=== PATIENT | male | born 1955 | race Caucasian/White ===

== ENCOUNTER 2020-01-01 08:06 | Emergency (ER) | payer BC, SELFPAY ==
[2020-01-01] VITALS (28 sets, daily range): BP systolic 130–187; BP diastolic 66–100; PULSE 67–82; RESP 10–24; TEMP 36.3–36.5; O2SAT 83–100
[2020-01-01 08:22] LABS: Glucose Point of Care 104 (65-105)
--- NOTE | 2020-01-01 08:25 | PC.NURSE ---
Pt BS now 89.
--- NOTE | 2020-01-01 08:43 | ED.RECABL ---
HPI - Recheck/Abnormal Lab/Rx General Chief Complaint: Recheck/Abnormal Lab/Rx Stated Complaint: LOW BLOOD SUGAR Time Seen by Provider: 01/01/20 08:17 Source: patient Mode of arrival: EMS Limitations: no limitations History of Present Illness HPI narrative: This patient is a 64 year old Insulin dependent diabetic who presents via EMS with a low blood sugar. Patient states he takes 20 units long acting insulin in the morning and he takes short acting novolog on a sliding scale. He last took his long acting yesterday morning and he states his blood sugar was 160-180 yesterday afternoon. He ate normally yesteday but he states he took 25 units Novolog last night after dinner and he forgot to check his sugar 3 hours afterwards like he normally does. This morning he woke up feeling cold, shaking and clammy . He also states he was disoriented but he was able to give himself sugar tablets. By the time EMS arrived his BS was 90. He states he feels better but he still has some nausea. He was feeling well prior to this morning. MD complaint: other (low blood sugar) Related Data Home Medications Medication Instructions Recorded Confirmed insulin aspart U-100 100 unit/mL 10 unit SUB-Q TID 06/08/19 (3 mL) subcutaneous pen insulin degludec 100 unit/mL (3 20 unit SUB-Q DAILY 06/08/19 mL) subcutaneous pen saxagliptin 5 mg-metformin ER 1 tablet PO DAILY 06/08/19 1,000 mg tablet,extend release 24hr mp atorvastatin 80 mg tablet 80 mg PO DAILY tablet 06/29/19 ergocalciferol (vitamin D2) 1,250 unit PO 06/29/19 mcg (50,000 unit) capsule Allergies Allergy/AdvReac Type Severity Reaction Status Date / Time amoxicillin Allergy Unknown Hives Verified 01/01/20 08:07 Penicillins Allergy Unknown Hives Verified 01/01/20 08:07 Review of Systems Review of Systems: Narrative: CONSTITUTIONAL: Denies fever, chills, EYES: Denies visual changes, redness, or discharge. ENT: Denies rhinorrhea, congestion, sore throat, or otalgia. CARDIOVASCULAR: Denies chest pain, palpitations, or edema. RESPIRATORY: Denies cough or dyspnea. GASTROINTESTINAL: Denies abdominal pain, nausea, vomiting, or diarrhea. GENITOURINARY: Denies dysuria or hematuria. SKIN: Denies rash or itching. MUSCULOSKELETAL: Denies back pain, joint pain, or myalgia. NEUROLOGIC: Denies headache, numbness, PSYCHIATRIC: Denies anxiety or depression. [facility] Past Medical History Medical History (Updated 01/01/20 @ 12:10 by Donna Valdovinos MD) Abnormal EKG Abnormal finding of blood chemistry, unspecified ROMELIA-inhibitor cough Benign essential hypertension BMI 27.0-27.9,adult Chronic cough Diabetes mellitus type 2, insulin dependent Encounter for preventive health examination Encounter for special screening examination for neoplasm of prostate Hyperlipidemia On halfway drug therapy Family History Family History (Updated 05/28/16 @ 14:56 by DOCTOR UNKNOWN) Father Family history of coronary artery disease Grandparent Cerebrovascular accident Mother Family history of dementia Social History Social History Smoking status: Never smoker Alcohol intake: never Gender identity (if verbalized by the patient): Male Exam Narrative: Exam Narrative: GENERAL: Well-appearing, well-nourished, and in no acute distress. HEAD: Normocephalic, atraumatic EYES: PERRLA and EOMI, conjunctiva clear without discharge EARS: TM's clear bilaterally without erythema or dullness NOSE: Nares clear, no rhinorrhea or epistaxis THROAT:Mucous membranes moist, Oropharynx normal without erythema, exudate, peritonsillar swelling or fluctuance NECK: Supple, without lymphadenopathy or mass RESPIRATORY: No respiratory distress, Airway patent, Respirations non-labored, Clear to auscultation without rales, rhonchi or wheeze HEART: Regular rate and rhythm. No murmur heard. Normal peripheral pulses. ABDOMEN: Soft, nontender, nondistended, normal active bowel sounds. No masses. No rebound or
[2020-01-01] MEDS: ONDANSETRON INJ 4 MG/2 ML VIAL IV PUSH (09:09)
[2020-01-01 09:14] LABS: Basophils Percent Auto 0.4 % (0.2-1.2); Eosinophils Absolute Auto 0.1 K/mm3 (0-0.3); Eosinophils Percent Auto 0.6 % (0-4.4); Hematocrit 48.3 % (42.0-52.0); Hemoglobin 15.7 g/dL (14.0-18.0); Immature Granulocyte Absolute 0.04 K/mm3 (0.00-0.031); Immature Granulocyte Percent A 0.5 % (0-0.5); Lymphocytes Absolute Auto 0.51 K/mm3 (0.9-3.2); Lymphocytes Percent Auto 6.4 % (18.3-44.2); Mean Corpuscular HGB Conc 32.5 g/dl (32-36); Mean Corpuscular Hemoglobin 28.8 pg (26-34); Mean Corpuscular Volume 88.6 fl (80-100); Mean Platelet Volume 10.2 fl (7.4-10.4); Monocytes Absolute Auto 0.3 K/mm3 (0.1-0.6); Monocytes Percent Auto 3.5 % (2.6-8.5); Neutrophils Absolute Auto 7.1 K/mm3 (1.3-6.7); Neutrophils Percent Auto 88.6 % (45.5-73.1); Platelet Count Result 146 k/mm3 (150-375); Red Blood Count 5.45 M/mm3 (4.6-6.20)
[2020-01-01 09:26] LABS: Blood Urea Nitrogen 23 mg/dL (9-20); Carbon Dioxide 27 mmol/L (22-30); Chloride 102 mmol/L (98-107); Estimated CRCL calculation 71 ml/min; Estimated Glomerular Filt Rate > 60; Glucose 129 mg/dL (75-110); Potassium 4.2 mmol/L (3.4-5.0); Sodium 139 mmol/L (137-145)
[2020-01-01 11:01] LABS: Add Urine Microscopic? YES; Appearance Urine Clear (Clear); Bilirubin Urine Negative (Negative); Blood Urine Negative (Negative); Color Urine Yellow (Yellow); Glucose Urine UA 3+ mg/dL (Negative); Ketones Urine Negative (Negative); Leukocyte Esterase Ur Negative LEU/UL (Negative); Mucus Urine Rare /lpf; Nitrate Urine Negative (Negative); Protein Urine 2+ mg/dL (Negative); RBC Urine 0-2 /hpf (0-2); Specific Grav Ur 1.016 (1.001-1.035); Squamous Epithelial Cell Urine Rare /hpf (Few); Urobilinogen Urine Negative mg/dL (<2.0); WBC Urine 0-3 /hpf
[2020-01-01 11:40] LABS: Glucose Point of Care 209 (65-105)
== END 2020-01-01 12:48 | disposition home or self-care (01) ==
PROVIDERS: Emergency Provider General Practice; PCP Internal Medicine
DX: E11.649 Type 2 diabetes mellitus with hypoglycemia without coma (principal); I10 Essential (primary) hypertension; E78.5 Hyperlipidemia, unspecified; Z79.4 Long term (current) use of insulin
CPT/HCPCS: 36415; 80048; 81001; 82948; 85025; 96374; 99284; J2405

== ENCOUNTER 2020-01-05 15:38 | Outpatient (CLI) | payer BC, SELFPAY ==
[2020-01-05 16:25] LABS: Basophils Absolute Auto 0.1 K/mm3 (0.0-0.1); Eosinophils Absolute Auto 0.3 K/mm3 (0-0.3); Eosinophils Percent Auto 6.5 % (0-4.4); Hematocrit 40.8 % (42.0-52.0); Hemoglobin 13.2 g/dL (14.0-18.0); Immature Granulocyte Absolute 0.01 K/mm3 (0.00-0.031); Immature Granulocyte Percent A 0.2 % (0-0.5); Immature Platelet Fraction Pct 2.5 % (0.9-11.2); Lymphocytes Absolute Auto 0.96 K/mm3 (0.9-3.2); Lymphocytes Percent Auto 19.6 % (18.3-44.2); Mean Corpuscular HGB Conc 32.4 g/dl (32-36); Mean Corpuscular Hemoglobin 28.5 pg (26-34); Mean Corpuscular Volume 88.1 fl (80-100); Mean Platelet Volume 10.6 fl (7.4-10.4); Monocytes Absolute Auto 0.3 K/mm3 (0.1-0.6); Monocytes Percent Auto 6.9 % (2.6-8.5); Neutrophils Absolute Auto 3.2 K/mm3 (1.3-6.7); Neutrophils Percent Auto 65.8 % (45.5-73.1); Platelet Count Result 152 k/mm3 (150-375); Red Blood Count 4.63 M/mm3 (4.6-6.20); White Blood Count 4.9 K/mm3 (4.5-10.0)
[2020-01-05 16:39] LABS: Alanine Aminotransferase 18 U/L (4-50); Albumin Level 4.1 g/dL (3.5-5.1); Alkaline Phosphatase 64 U/L (38-126); Aspartate Amino Transferase 29 U/L (17-59); Bilirubin,Total 0.8 mg/dL (0.2-1.3); Blood Urea Nitrogen 25 mg/dL (9-20); Carbon Dioxide 24 mmol/L (22-30); Chloride 102 mmol/L (98-107); Cholesterol 70 mg/dL (0-200); Estimated Glomerular Filt Rate > 60; Glucose 217 mg/dL (75-110); HDL Direct 26 mg/dL; Potassium 5.1 mmol/L (3.4-5.0); Sodium 135 mmol/L (137-145); Triglycerides 160 mg/dL (<150)
[2020-01-05 17:09] LABS: Prostate Specific Antigen 0.9 ng/mL (< OR = 4.0)
[2020-01-05 17:29] LABS: LDL Cholesterol Direct < 30 mg/dL
== END 2020-01-05 15:39 | disposition home or self-care (01) ==
PROVIDERS: PCP Internal Medicine; Visit Provider Internal Medicine
DX: E78.2 Mixed hyperlipidemia (principal); I10 Essential (primary) hypertension; R79.9 Abnormal finding of blood chemistry, unspecified; Z12.5 Encounter for screening for malignant neoplasm of prostate
CPT/HCPCS: 36415; 80053; 80061; 82542; 83036; 84153; 84443; 85025; 85055; G0103

== ENCOUNTER 2020-02-10 10:03 | Outpatient (CLI) | payer BC, SELFPAY ==
[2020-02-10 13:20] LABS: Vitamin D 25 Hydroxy 73.5 ng/mL
== END 2020-02-10 10:04 | disposition home or self-care (01) ==
PROVIDERS: PCP Internal Medicine; Visit Provider Internal Medicine
DX: E55.9 Vitamin D deficiency, unspecified (principal)
CPT/HCPCS: 36415; 82306

== ENCOUNTER 2020-03-25 06:38 | Outpatient (CLI) | payer BC, SELFPAY ==
--- NOTE | 2020-03-25 | EST_ITS ---
Patient Info Name: Vern Molina Age: 64 years : 1955 Gender: Male Ht: 67 in Wt: 170 lbs BSA: 1.92 m2 Exam Date: 03/25/2020 7:44 AM Exam Location: [facility] Stress Patient Status: Outpatient Admit Date: 03/25/2020 Staff Ordering Physician: Jeramie Dempsey MD Attending Provider: IKER HOGAN DO Exercise Technologist: Tessie Maza RDCS Exercise Physician: Iker Hogan DO Exam Type: CA stress michelle w NM Study Info Indications I10 - Essential (primary) hypertension E78.5 - Hyperlipidemia, unspecified R93.1 - Abnormal findings on diagnostic imaging of heart and coronary circulation A regadenoson stress test was performed. Summary 1. 1. Negative lexiscan stress test for ischemic ST changes by ECG criteria. 2. 2. Stable hemodynamics throughout the test. 3. 3. Nuclear scan to follow and will be reported separately. Please correlate with it. 4. 4. Patient informed of the above results. Protocol: Lexiscan Stress ECG Details Stage: REST Duration (min): 6 min : 13 sec HR (bpm): 65 SBP (mmHg): 145 DBP (mmHg): 81 Stage: REST Duration (min): 10 min : 45 sec HR (bpm): 66 SBP (mmHg): 145 DBP (mmHg): 81 Stage: STAGE 1 Duration (min): 0 min : 59 sec HR (bpm): 72 SBP (mmHg): 130 DBP (mmHg): 76 Stage: RECOVERY Duration (min): 1 min : 0 sec HR (bpm): 77 SBP (mmHg): 130 DBP (mmHg): 76 Stage: RECOVERY Duration (min): 2 min : 0 sec HR (bpm): 79 SBP (mmHg): 120 DBP (mmHg): 72 Stage: RECOVERY Duration (min): 3 min : 0 sec HR (bpm): 77 SBP (mmHg): 116 DBP (mmHg): 70 Stage: RECOVERY Duration (min): 4 min : 0 sec HR (bpm): 74 SBP (mmHg): 116 DBP (mmHg): 70 Stage: RECOVERY Duration (min): 5 min : 0 sec HR (bpm): 74 SBP (mmHg): 126 DBP (mmHg): 70 Stage: RECOVERY Duration (min): 6 min : 0 sec HR (bpm): 74 SBP (mmHg): 126 DBP (mmHg): 70 Stage: RECOVERY Duration (min): 6 min : 46 sec HR (bpm): 74 SBP (mmHg): 126 DBP (mmHg): 70 Rest HR: 66 bpm Peak HR: 81 bpm Rest Sys BP: 145 mmHg Peak Sys BP: 130 mmHg Max Pred HR: 157 bpm % Max Pred HR: 52 % Target HR: 133 bpm Max RPP: 10,530 bpm*mmHg Termination Reason: Completed protocol Cardiac Symptoms: None Total Time: 1 min : 0 sec Rest Alcocer BP: 81 mmHg Peak Alcocer BP: 76 mmHg Total Dose: 0.4 mg Resting ECG Sinus rhythm. Stress ECG No ST changes. Arrhythmias None. Report Signatures
--- NOTE | ~2020-03-25 | NM_ITS ---
EXAMINATION: NM michelle stress w perfusion DATE: 03/25/2020 09:33 INDICATION: Abnormal EKG. Benign hypertension. TECHNIQUE: Rest images were obtained following intravenous administration of 11.4 mCi Tc99m tetrofosm in (Myoview). The patient was infused intravenously with Lexiscan (Regadenoson). Then, 32.2 mCi Tc99m tetrofosmin (Myoview) was administered intravenously, and stress images were obtained. Additional pr one post stress images were obtained. Data was reconstructed into short axis and horizontal and verti pat long axis SPECT images. Gated SPECT images were also obtained. COMPARISON: 03/07/2009 FINDINGS: Severe nonreversible perfusion consistent with infarct at the basilar inferior and mid and basilar inferolateral segments. There is reversible perfusion defect on both the supine and prone pos t stress images consistent with ischemia at the extending peripherally from the region of infarct in each of the previously noted segments as well as extending into the mid inferior segment. There is no rmal left ventricular chamber size. There is hypokinesis and decreased wall thickening along the basi lar inferior and inferolateral segments with borderline left ventricular ejection fraction which eugenia ures 50%. IMPRESSION: 1. Reversible perfusion consistent with ischemia in the mid inferior segment as well as along the mar gins of an infarct involving the inferior basilar, mid inferolateral and basilar inferolateral segmen ts. 2. Left ventricular ejection fraction measuring 50%. Reviewed, dictated and finalized at location B. IMPRESSION: 1. Reversible perfusion consistent with ischemia in the mid inferior segment as well as along the margins of an infarct involving the inferior basilar, mid in ferolateral and basilar inferolateral segments. 2. Left ventricular ejection fraction measuring 50%.
== END 2020-03-25 06:39 | disposition home or self-care (01) ==
LOC: ANHCARD 06:44
PROVIDERS: PCP Internal Medicine; Visit Provider Internal Medicine
DX: R94.39 Abnormal result of other cardiovascular function study (principal); R94.31 Abnormal electrocardiogram [ECG] [EKG]; I10 Essential (primary) hypertension
CPT/HCPCS: 78452; 93017; A9502; J2785

== ENCOUNTER 2020-03-29 08:10 | Outpatient (CLI) | payer BC, SELFPAY ==
[2020-03-29 08:27] LABS: Basophils Absolute Auto 0.1 K/mm3 (0.0-0.1); Basophils Percent Auto 0.8 % (0.2-1.2); Eosinophils Absolute Auto 0.5 K/mm3 (0-0.3); Eosinophils Percent Auto 8.7 % (0-4.4); Hemoglobin 14.2 g/dL (14.0-18.0); Immature Granulocyte Absolute 0.02 K/mm3 (0.00-0.031); Immature Granulocyte Percent A 0.3 % (0-0.5); Lymphocytes Absolute Auto 1.14 K/mm3 (0.9-3.2); Lymphocytes Percent Auto 18.3 % (18.3-44.2); Mean Corpuscular HGB Conc 32.3 g/dl (32-36); Mean Corpuscular Hemoglobin 28.6 pg (26-34); Mean Corpuscular Volume 88.5 fl (80-100); Mean Platelet Volume 9.9 fl (7.4-10.4); Monocytes Absolute Auto 0.5 K/mm3 (0.1-0.6); Monocytes Percent Auto 7.7 % (2.6-8.5); Neutrophils Percent Auto 64.2 % (45.5-73.1); Platelet Count Result 152 k/mm3 (150-375); Red Blood Count 4.97 M/mm3 (4.6-6.20); Red Cell Distribution Width 13.2 % (11.5-14.5); White Blood Count 6.2 K/mm3 (4.5-10.0)
[2020-03-29 08:39] LABS: Alanine Aminotransferase 27 U/L (4-50); Albumin Level 4.1 g/dL (3.5-5.1); Alkaline Phosphatase 81 U/L (38-126); Anion Gap 8 mmol/L (8-16); Aspartate Amino Transferase 36 U/L (17-59); Bilirubin,Total 0.6 mg/dL (0.2-1.3); Blood Urea Nitrogen 29 mg/dL (9-20); Carbon Dioxide 26 mmol/L (22-30); Chloride 103 mmol/L (98-107); Cholesterol 110 mg/dL (0-200); Estimated Glomerular Filt Rate > 60; Glucose 189 mg/dL (75-110); HDL Direct 29 mg/dL; Potassium 4.3 mmol/L (3.4-5.0); Sodium 137 mmol/L (137-145); Triglycerides 261 mg/dL (<150)
[2020-03-29 08:44] LABS: Hemoglobin A1C 8.9 % (<5.7)
[2020-03-29 08:54] LABS: LDL Cholesterol Direct 44 mg/dL
[2020-03-31 12:30] LABS: Homocysteine 15.3 umol/L (<11.4)
== END 2020-03-29 08:11 | disposition home or self-care (01) ==
PROVIDERS: PCP Internal Medicine; Visit Provider Internal Medicine
DX: E78.5 Hyperlipidemia, unspecified (principal); E11.9 Type 2 diabetes mellitus without complications; Z79.4 Long term (current) use of insulin; Z79.899 Other long term (current) drug therapy
CPT/HCPCS: 36415; 80053; 80061; 82306; 83036; 83090; 84443; 85025

== ENCOUNTER 2020-04-04 00:03 | Outpatient (CLI) | payer BC, SELFPAY ==
[2020-04-04 16:39] LABS: SARS-CoV-2 RNA PCR Negative
== END 2020-04-04 00:04 | disposition home or self-care (01) ==
LOC: ANHCOVIDDT 00:03
PROVIDERS: PCP Internal Medicine; Visit Provider Specialist
DX: Z01.812 Encounter for preprocedural laboratory examination (principal); Z20.828 Contact with and (suspected) exposure to other viral communicable diseases
CPT/HCPCS: 87635; C9803; U0003

== ENCOUNTER 2020-04-06 02:07 | Day surgery (SDC) | payer BC, SELFPAY ==
[2020-04-06] VITALS (16 sets, daily range): BP systolic 114–150; BP diastolic 61–85; PULSE 58–74; RESP 12–19; TEMP 36.2–36.8; O2SAT 95–100; BMI 26.4
--- NOTE | 2020-04-06 07:47 | SUR.PREOP ---
ARRIVES AMBULATORY TO [facility] W/ SISTER AT SIDE FOR SCHEDULED C W/ DR. MENDIETA. DENIES CP OR SOB ON ARRIVAL. ORIENTED TO ROOM, PLAN OF CARE, PROCEDURE. QUESTIONS ANSWERED. IV STARTED, LABS SENT, VS OBTAINED, CONSENT SIGNED, SKIN PREP COMPLETED. WILL CONTINUE TO MONITOR.
[2020-04-06 08:06] LABS: Basophils Absolute Auto 0.1 K/mm3 (0.0-0.1); Basophils Percent Auto 0.9 % (0.2-1.2); Eosinophils Absolute Auto 0.4 K/mm3 (0-0.3); Eosinophils Percent Auto 6.9 % (0-4.4); Hematocrit 45.1 % (42.0-52.0); Hemoglobin 14.9 g/dL (14.0-18.0); Immature Granulocyte Absolute 0.01 K/mm3 (0.00-0.031); Immature Granulocyte Percent A 0.2 % (0-0.5); Lymphocytes Absolute Auto 1.13 K/mm3 (0.9-3.2); Mean Corpuscular Hemoglobin 29.1 pg (26-34); Mean Corpuscular Volume 88.1 fl (80-100); Mean Platelet Volume 10.4 fl (7.4-10.4); Monocytes Absolute Auto 0.4 K/mm3 (0.1-0.6); Monocytes Percent Auto 7.4 % (2.6-8.5); Neutrophils Absolute Auto 3.4 K/mm3 (1.3-6.7); Neutrophils Percent Auto 63.6 % (45.5-73.1); Platelet Count Result 169 k/mm3 (150-375); Red Blood Count 5.12 M/mm3 (4.6-6.20); Red Cell Distribution Width 13.2 % (11.5-14.5); White Blood Count 5.4 K/mm3 (4.5-10.0)
[2020-04-06 08:19] LABS: Anion Gap 7 mmol/L (8-16); Blood Urea Nitrogen 21 mg/dL (9-20); Calcium 9.1 mg/dL (8.4-10.2); Carbon Dioxide 26 mmol/L (22-30); Chloride 104 mmol/L (98-107); Estimated Glomerular Filt Rate > 60; Glucose 118 mg/dL (75-110); Sodium 137 mmol/L (137-145)
[2020-04-06 08:23] LABS: INR 0.9
--- NOTE | 2020-04-06 08:53 | WPDMODSED ---
Moderate Sedation Note-Pt Data Patient Data Diagnosis: Abnormal coronary calcium score with abnormal stress test Present Complaint: 64-year-old patient who underwent coronary is creating with calcium scoring and had a abnormal nuclear stress test indicating infero apical ischemia following this. In this setting angiography has been recommended. It should be noted the patient had a negative coronary angiogram many years ago Allergies Allergy/AdvReac Type Severity Reaction Status Date / Time amoxicillin Allergy Unknown Hives Verified 04/06/20 08:49 Penicillins Allergy Unknown Hives Verified 04/06/20 08:49 Home Medications Medication Instructions Recorded Confirmed Type losartan 50 mg tablet 50 mg PO DAILY #30 tablet 06/08/19 03/29/20 Rx ergocalciferol (vitamin D2) 1,250 unit PO 06/29/19 03/29/20 History mcg (50,000 unit) capsule ezetimibe 10 mg tablet 10 mg PO DAILY #90 tablet 06/29/19 03/29/20 Rx folic acid 400 mcg tablet 800 mcg PO DAILY #60 tablet 06/29/19 03/29/20 Rx mecobalamin (vitamin B12) 1,000 1,000 mcg SUBLINGUAL DAILY #90 06/29/19 03/29/20 Rx mcg disintegrating tablet tablet,sublingual omega-3 fatty acids 1,000 mg 2,000 mg PO BID cap 01/07/20 03/29/20 History capsule atorvastatin 80 mg tablet 80 mg PO DAILY #90 tablet 01/25/20 03/29/20 Rx pen needle, diabetic 31 gauge x #450 each 02/01/20 03/29/20 Rx 10/04 blood sugar diagnostic See Rx Instructions .ROUTE 03/17/20 03/29/20 Rx .COMPLEX #100 each insulin aspart U-100 100 unit/mL 12 unit SUB-Q TID #15 ml 03/24/20 03/29/20 Rx subcutaneous cartridge aspirin 81 mg tablet,delayed 81 mg PO DAILY #90 tablet 03/25/20 03/29/20 Rx release empagliflozin 10 mg-metformin ER 1 tablet PO DAILY #90 each 03/29/20 03/29/20 Rx 1,000 mg tablet,extended release 24hr insulin degludec 100 unit/mL (3 20 unit SUB-Q DAILY #15 ml 03/29/20 03/29/20 Rx mL) subcutaneous pen Current Medications: Active Medications Sodium Chloride (Normal Saline Iv) 500 mls @ 100 mls/hr IV CONT .Q5H [facility] Sedation/Anesthesia: No previous sedation/anesthesia problems (including family history). 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 Social History Social History Smoking status: Never smoker Alcohol intake: never Gender identity (if verbalized by the patient): Male Mod Sed Physical Exam Physical Exam Pre Procedural Exam: Normal: Appearance, Throat, Airway, Lungs, Heart Size, Heart Rate, Heart Rhythm, Neuro Exam and Extremities Hours since solid foods: 12 Hours since liquid intake: 12 Internal Medicine - PN: Obj Da Meds/Results Medications: Active Medications Generic Name Dose Route Start Last Admin Trade Name Freq PRN Reason Stop Dose Admin Sodium Chloride 500 mls @ 100 mls/hr 04/06/20 05:55 Normal Saline Iv IV CONT .Q5H [facility] Labs CBC & Chem 7: 04/06/20 07:58 04/06/20 07:58 Labs: Laboratory Results - last 24 hr 04/06/20 04/06/20 04/06/20 07:58 07:58 07:58 WBC 5.4 RBC 5.12 Hgb 14.9 Hct 45.1 MCV 88.1 MCH 29.1 MCHC 33.0 RDW 13.2 Plt Count 169 MPV 10.4 Immature Gran % (Auto) 0.2 Neut % (Auto) 63.6 Lymph % (Auto) 21.0 [place] % (Auto) 7.4 Eos % (Auto) 6.9 H Baso % (Auto) 0.9 Lymph # (Auto) 1.13 [place] # (Auto) 0.4 Eos # (Auto) 0.4 H Baso # (Auto
--- NOTE | 2020-04-06 09:20 | WPDCARDPROC ---
Cardiac Cath Procedure Note Date of procedure:: 04/06/20 Performing physician:: Matthew Damico MD Indication:: abnormal stress test elevated coronary calcium score Brief clinical history:: this is a 64-year-old white male without symptoms of anginal chest pain. He does have diabetes. He underwent coronary screening recently with an abnormal coronary calcium score followed by a nuclear stress test suggesting a previous inferior infarction has occurred. He is not experiencing chest pain Procedure Procedure performed:: left heart catheterization with left ventriculography and coronary angiography Sedation/Medication given:: fentanyl 50 mg Versed 2 mg case start time 8:59 a.m. case end time 9:14 a.m. sedation provided by Ky Beltran RN, Access site:: right femoral artery Estimated blood loss:: 15-20 cc Procedure note:: patient was brought to the cardiac catheterization lab in the postabsorptive state right femoral triangle was prepped and draped in the usual fashion. Anesthesia was provided with 1% lidocaine infiltrated locally. Using the modified Seldinger technique the right femoral artery was punctured and a 5 Mauritian vascular sheath was placed. After this left heart catheterization was carried out. I used a 5 Mauritian angle pigtail catheter to measure left-sided hemodynamics and to injected LV g in the GRISSOM projection. After this the pigtail catheter was withdrawn and I used a standard 5 Mauritian FL4 catheter to engage inject the left coronary artery. A standard 5 Mauritian JR4 catheter was used to engage inject the right coronary artery. The angiograms were then reviewed and the case was terminated and angiogram was done of the femoral artery through the sheath after which it was determined the sheath will be removed with direct manual compression. He left the catheterization lab in stable condition there were no procedural complications and no evidence of a groin hematoma was seen upon leaving the laboratory phlebotomist. Findings:: Hemodynamics: Central aortic pressure is 100/40. left ventricle is 100 over 0 end-diastolic pressure 9 there is no systolic gradient on pullback across the aortic valve. The left ventricle is normal in size the inferobasal segment is akinetic the remainder of the LV contracts well the global ejection fraction is visually estimated to be 50%. The left main coronary artery is medium in caliber and is nicely patent left anterior descending is a medium caliber artery with proximal calcification. The LAD however is patent down to around the apex there is a mild stenosis in the mid LAD of about 50%. There is RONALDO 3 flow in this vessel. The circumflex is a medium caliber artery giving rise to a 1st OM branch after which the circumflex is 100% occluded. There is [id number] bridging collaterals and late filling can be seen of a large 2nd OM as well as of the posterior circumflex branch. The 1st OM branch has mild proximal disease of about 50-60%. The right coronary artery is 100% occluded just after the ostium. There is [id number] collateral filling seen of the small RPDA RPL branches seen on left coronary angiography. Conclusion:: 1. Two vessel coronary artery disease with 100% occlusion of the proximal RCA as well as 100% occlusion of the mid circumflex well both of which are collateralized vessel 2. non flow-limiting disease in the 1st OM circumflex as well as in the mid LAD 3. left ventricular systolic dysfunction with inferobasal akinesia Matthew Damico MD FACC
--- NOTE | 2020-04-06 15:49 | SUR.PHASEII ---
1545-pt given D/C orders and instructions. Questions answered and verbalized understanding. AOx4. PIV removed. Taken via wheelchair to waiting vehicle. No distress noted or verbalized at time of departure.
== END 2020-04-06 15:50 | disposition home or self-care (01) ==
PROVIDERS: PCP Internal Medicine; Visit Provider Specialist
PROC: 4A023N7 Measurement of Cardiac Sampling and Pressure, Left Heart, Percutaneous Approach (ICD-10-PCS; CPT 93452; principal; 2020-04-06 08:30)
DX: I25.10 Atherosclerotic heart disease of native coronary artery without angina pectoris (principal); I50.20 Unspecified systolic (congestive) heart failure; R94.39 Abnormal result of other cardiovascular function study; E11.9 Type 2 diabetes mellitus without complications; I25.2 Old myocardial infarction
CPT/HCPCS: 36415; 80048; 85025; 85610; 93458; C1887; C1894; J1644; J2250; J3010; J7040

== ENCOUNTER 2020-07-19 16:40 | Emergency (ER) | payer BC, SELFPAY ==
[2020-07-19] VITALS (13 sets, daily range): BP systolic 125–154; BP diastolic 66–77; PULSE 65–76; RESP 10–19; TEMP 36.4; O2SAT 96–100
--- NOTE | 2020-07-19 16:54 | PC.NURSE ---
BS 136. Pt states he is a type 2 diabetic.
[2020-07-19 16:55] LABS: Glucose Point of Care 132 (65-105)
--- NOTE | 2020-07-19 17:56 | PC.NURSE ---
patient brought back to ED room 10 with c/o headache for the last 2 days. see initial notes. patient has been in our waiting area due to no beds available in ED. patient states he does have hx of migraines in the past. this headache feels the same to the patient. on traffic monitor specialist. had SL inserted and labs drawn in triage. alert. oriented. patient's sister Padmini notified she can come in now.
--- NOTE | 2020-07-19 18:05 | PC.NURSE ---
resting on stretcher. sister in room. no change in condition. patient updated on current treatment plan and expected wait time. waiting for further orders from provider.
--- NOTE | 2020-07-19 18:49 | PC.NURSE ---
patient resting on stretcher. sister at bedside. lights off. waiting for further orders from provider.
--- NOTE | 2020-07-19 19:10 | ED.GENADULT ---
HPI - General Adult General Chief complaint: Headache Stated complaint: headache, n/v Time Seen by Provider: 07/19/20 18:33 Source: patient History of Present Illness HPI narrative: Patient is a 64 y/o male complaining of headache since yesterday. He states that the headache is located behind both eyes. He describes the headache as sharp and rates it as 8/10. He states that headache is worse on the left side. He had some nausea and vomiting. He denies any focal weakness or numbness. He is able to walk without difficulty. He states that he has history of migraine headache and it feels like similar to previous migraine. Related Data Home Medications Medication Instructions Recorded Confirmed omega-3 fatty acids 1,000 mg 4,000 mg PO DAILY cap 01/07/20 04/06/20 capsule Systane (propylene glycol) 1 drp OPHTHALMIC (EYE) DAILY PRN 04/06/20 04/06/20 acetaminophen 325 mg PO Q4-6H PRN 04/06/20 04/06/20 cholecalciferol (vitamin D3) 50 mcg PO DAILY 04/06/20 04/06/20 [Vitamin D3] diphenhydramine HCl [Benadryl] 25 mg PO HS PRN 04/06/20 04/06/20 carvedilol 3.125 mg PO BID 07/19/20 insulin degludec [Tresiba SUBCUT 07/19/20 FlexTouch U-100] metoprolol succinate 07/19/20 ramipril mg PO 07/19/20 Allergies Allergy/AdvReac Type Severity Reaction Status Date / Time amoxicillin Allergy Unknown Hives Verified 07/19/20 17:57 Penicillins Allergy Unknown Hives Verified 07/19/20 17:57 Review of Systems Constitutional: Constitutional: Denies chills, Denies fever(s), Reports headache(s) and Denies weakness Eyes: Eyes: Denies blurry vision ENT: Reports headache(s) and Denies neck pain Cardiovascular: Cardiovascular: Denies chest pain and Denies dyspnea Respiratory: Respiratory: Denies cough and Denies dyspnea Gastrointestinal: Gastrointestinal: Denies abdominal pain, Denies diarrhea, Reports nausea and Reports vomiting Genitourinary: Genitourinary: Denies hematuria and Denies dysuria Musculoskeletal: Musculoskeletal: Denies back pain and Denies neck pain Neurologic: Reports headache(s) and Denies weakness PMFSH Past Medical History Medical History Abnormal EKG Abnormal finding of blood chemistry, unspecified ROMELIA-inhibitor cough ASHD (arteriosclerotic heart disease) Benign essential hypertension BMI 27.0-27.9,adult Chronic cough Colon cancer screening Diabetes mellitus type 2, insulin dependent Encounter for preventive health examination Encounter for special screening examination for neoplasm of prostate Encounter for special screening examination for neoplasm of prostate Follow up Hyperlipidemia On prison drug therapy Family History Family History Father Family history of coronary artery disease Grandparent Cerebrovascular accident Mother Family history of dementia Social History Social History Smoking status: Never smoker Alcohol intake: never Gender identity (if verbalized by the patient): Male Exam Const: General: no acute distress and well developed Orientation/consciousness: oriented to person, oriented to place, oriented to time and patient oriented x3 HENMT: Head: normocephalic Ears: external ears normal General nose exam: Normal external nose present Eyes: General: appearance normal, both eyes and all related structures Conjunctivae: conjunctivae normal Neck: Neck: normal visual inspection and full ROM Chest: Chest palpation & inspection: normal inspection of the chest and no tenderness Resp: Effort & Inspection: normal respiratory effort Auscultation: clear to auscultation bilaterally Cardio: Rate: regular rate Rhythm: regular rhythm GI: GI Palp: No abdominal tenderness and Yes Soft to palpation Skin: General skin exam: normal color and turgor normal Neuro: General: oriented to person, oriented to place, oriented to ti
[2020-07-19] MEDS: SODIUM CHLORIDE 0.9% IV 1,000 ML 999 ML IV CONT (19:15)
[2020-07-19] MEDS: KETOROLAC 15 MG/ML VIAL (*BKC) IV PUSH (19:15)
[2020-07-19] MEDS: METOCLOPRAMIDE HCL INJ 10 MG/2 ML VIAL IV PUSH (19:16)
[2020-07-19] MEDS: diphenhydrAMINE HCl INJ 50 MG/ML VIAL 25 MG IV PUSH (19:16)
[2020-07-19 20:13] LABS: Basophils Percent Auto 0.1 % (0.2-1.2); Eosinophils Percent Auto 0.1 % (0-4.4); Hematocrit 47.9 % (42.0-52.0); Immature Granulocyte Absolute 0.03 K/mm3 (0.00-0.031); Immature Granulocyte Percent A 0.4 % (0-0.5); Lymphocytes Absolute Auto 0.48 K/mm3 (0.9-3.2); Lymphocytes Percent Auto 5.7 % (18.3-44.2); Mean Corpuscular HGB Conc 33.4 g/dl (32-36); Mean Corpuscular Hemoglobin 29.4 pg (26-34); Mean Corpuscular Volume 88.1 fl (80-100); Mean Platelet Volume 10.1 fl (7.4-10.4); Monocytes Absolute Auto 0.2 K/mm3 (0.1-0.6); Monocytes Percent Auto 2.2 % (2.6-8.5); Neutrophils Absolute Auto 7.8 K/mm3 (1.3-6.7); Neutrophils Percent Auto 91.5 % (45.5-73.1); Platelet Count Result 154 k/mm3 (150-375); Red Blood Count 5.44 M/mm3 (4.6-6.20); White Blood Count 8.5 K/mm3 (4.5-10.0)
[2020-07-19 20:30] LABS: Anion Gap 11 mmol/L (8-16); Blood Urea Nitrogen 30 mg/dL (9-20); Calcium 8.8 mg/dL (8.4-10.2); Carbon Dioxide 29 mmol/L (22-30); Chloride 99 mmol/L (98-107); Estimated CRCL calculation 65 ml/min; Estimated Glomerular Filt Rate > 60; Glucose 132 mg/dL (75-110); Potassium 4.9 mmol/L (3.4-5.0); Sodium 139 mmol/L (137-145)
== END 2020-07-19 20:47 | disposition home or self-care (01) ==
PROVIDERS: Emergency Provider Emergency Medicine; PCP Internal Medicine
DX: G43.909 Migraine, unspecified, not intractable, without status migrainosus (principal); I10 Essential (primary) hypertension; E11.9 Type 2 diabetes mellitus without complications; Z79.4 Long term (current) use of insulin; E78.5 Hyperlipidemia, unspecified
CPT/HCPCS: 36415; 80048; 82948; 85025; 96361; 96374; 96375; 99284; J1200; J1885; J2765; J7030

== ENCOUNTER 2020-07-28 08:55 | Outpatient (CLI) | payer BC, SELFPAY ==
[2020-07-28 09:27] LABS: Anion Gap 6 mmol/L (8-16); Blood Urea Nitrogen 24 mg/dL (9-20); CRP < 0.5 mg/dL (<1.0); Carbon Dioxide 30 mmol/L (22-30); Chloride 101 mmol/L (98-107); Cholesterol 73 mg/dL (0-200); Estimated Glomerular Filt Rate > 60; Glucose 204 mg/dL (75-110); HDL Direct 26 mg/dL; Potassium 4.5 mmol/L (3.4-5.0); Sodium 137 mmol/L (137-145); Triglycerides 150 mg/dL (<150)
[2020-07-28 09:31] LABS: Hemoglobin A1C 10.1 % (<5.7)
[2020-07-28 09:33] LABS: Add Urine Microscopic? YES; Appearance Urine Clear (Clear); Bilirubin Urine Negative (Negative); Blood Urine Negative (Negative); Color Urine Straw (Yellow); Glucose Urine UA 3+ mg/dL (Negative); Ketones Urine Negative (Negative); Leukocyte Esterase Ur Negative LEU/UL (NEGATIVE); Nitrate Urine Negative (Negative); Protein Urine Negative (Negative); Specific Grav Ur 1.029 (1.001-1.035); Urobilinogen Urine Negative mg/dL (<2.0); WBC Urine 0-3 /hpf (0-3)
[2020-07-28 09:53] LABS: Erythrocyte Sedimentation Rate 12 mm/hr (0-20)
[2020-07-28 09:59] LABS: LDL Cholesterol Direct < 30 mg/dL
[2020-07-28 10:23] LABS: Microalbumin Urine Random 11.5 mg/L (0-16.7)
[2020-07-28 10:25] LABS: Creatinine Urine 59.4 mg/dL; MALB Creatinine Ratio 19.4 mg/g (0-30)
[2020-07-28 11:48] LABS: Vitamin D 25 Hydroxy 65.5 ng/mL
== END 2020-07-28 08:56 | disposition home or self-care (01) ==
LOC: ANHLAB 08:56
PROVIDERS: PCP Internal Medicine; Visit Provider Internal Medicine
DX: E11.9 Type 2 diabetes mellitus without complications (principal); Z79.4 Long term (current) use of insulin; Z79.899 Other long term (current) drug therapy; E78.2 Mixed hyperlipidemia; I10 Essential (primary) hypertension; I25.10 Atherosclerotic heart disease of native coronary artery without angina pectoris
CPT/HCPCS: 36415; 80048; 80061; 81001; 82043; 82306; 83036; 85652; 86140

== ENCOUNTER 2021-03-06 11:43 | Outpatient (CLI) | payer BC, SELFPAY ==
[2021-03-06 12:33] LABS: Alanine Aminotransferase 22 U/L (4-50); Albumin Level 4.8 g/dL (3.5-5.1); Alkaline Phosphatase 89 U/L (38-126); Anion Gap 7 mmol/L (8-16); Aspartate Amino Transferase 31 U/L (17-59); Bilirubin,Total 1.1 mg/dL (0.2-1.3); Blood Urea Nitrogen 30 mg/dL (9-20); Calcium 9.7 mg/dL (8.4-10.2); Carbon Dioxide 25 mmol/L (22-30); Chloride 103 mmol/L (98-107); Cholesterol 78 mg/dL (0-200); Estimated Glomerular Filt Rate > 60; Glucose 82 mg/dL (65-110); HDL Direct 31 mg/dL; Potassium 4.5 mmol/L (3.4-5.0); Sodium 135 mmol/L (137-145); Triglycerides 245 mg/dL (<150)
[2021-03-06 12:49] LABS: LDL Cholesterol Direct < 30 mg/dL
[2021-03-06 13:03] LABS: Thyroid Stimulating Hormone 0.885 uIU/mL (0.465-4.680)
[2021-03-06 13:36] LABS: Creatinine Urine 107.4 mg/dL
[2021-03-06 13:39] LABS: MALB Creatinine Ratio 14.3 mg/g (0-30); Microalbumin Urine Random 15.4 mg/L (0-16.7)
[2021-03-06 17:59] LABS: Hemoglobin A1C 11.2 % (<5.7)
[2021-03-06 18:46] LABS: Free T4 Free Thyroxine 0.89 ng/mL (0.78-2.19)
[2021-03-07 03:36] LABS: Prostate Specific Antigen 0.8 ng/mL (< OR = 4.0)
== END 2021-03-06 11:44 | disposition home or self-care (01) ==
LOC: ANHLAB 11:45
PROVIDERS: PCP Internal Medicine; Visit Provider Internal Medicine
DX: E11.9 Type 2 diabetes mellitus without complications (principal); E78.2 Mixed hyperlipidemia; I10 Essential (primary) hypertension; Z79.4 Long term (current) use of insulin; Z79.899 Other long term (current) drug therapy; Z12.5 Encounter for screening for malignant neoplasm of prostate
CPT/HCPCS: 36415; 80053; 80061; 82043; 83036; 83090; 84153; 84439; 84443; G0103

== ENCOUNTER 2021-06-02 08:00 | Outpatient (RCR) | payer BC, SELFPAY ==
--- NOTE | 2021-04-17 11:16 | PTOPEVAL ---
PHYSICAL THERAPY EVALUATION Thank you for referring Vern Molina to [facility].? Art has been evaluated for the dx of vertigo/decreased balance. The patient is scheduled to be seen for therapy?1 x/week for up to 4 weeks. Please review, sign, date and return this plan of care KESHAV. I agree with and certify that the following plan of care is medically necessary. Referring Physician Date Attending Provider: Jeramie Dempsey MD *PT Outpatient Evaluation Start: 04/17/21 08:47 Freq: Status: Active Protocol: Document 04/17/21 08:47 MLV (Rec: 04/17/21 09:45 MLV [id number]) Therapy Assessment Status Assessment Status Assessment Status Evaluation Evaluation Information Problem Diagnosis vertigo;BPPV Onset worse in last year Cause none Additional Evaluation Detail The patient has a hx of dizziness for 10 yrs, starting in the past due to IDDM issues. The patient had a flare up of symptoms 1-2 yrs ago and had PT for BPPV but it didn't help his symptoms. The patient feels his symptoms have gotten worse over the last 1-2yrs. 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 The patient does the yardwork but otherwise sedentary. The symptoms seem to be more frequent in the shower when he closes his eyes and has to move. The patient gets it also when paging through screens on a computer quickly. The patient gets dizzy walking down isles at a store also. Pt denies symptoms with getting in/out of bed or rolling. Pain Assessment Timing of Pain Assessment Timing of Pain Assessment Assessment Self Report Self Report Pain Level 0 Pain Score Pain Score 0: Self Report Upper Extremity Range of Motion General Upper Extremity Range of Motion Reason Not Measured WNL/Left,WNL/Right Lower Extremity Range of Motion General Lower Extremity Range of Motion Reason Not Measured WNL/Left,WNL/Right Lower Extremity Muscle Strength Testing General Lower Extremity Strength Reason Not Measured WFL/Left,WFL/Right Upper Extremity Muscle Strength Testing General Upper Extremity Strength Reason Not Measured WFL/Left,WFL
--- NOTE | 2021-05-01 10:08 | PCPTNOTE ---
Patient did not show up for scheduled appointment this date. Called and had to leave a message.
--- NOTE | 2021-06-02 08:45 | PTOPEVAL ---
PHYSICAL THERAPY DISCHARGE Thank you for referring Vern Molina to [facility].? The patient has completed 4 visits for dx of BPPV with goals peaked at partially/not met. Please review, sign, date and return this plan of care KESHAV. I agree with and certify that the following plan of care is medically necessary. Referring Physician Date Attending Provider: Jeramie Dempsey MD *PT Outpatient Evaluation Start: 04/17/21 08:47 Freq: Status: Active Protocol: Document 06/02/21 08:25 MLV (Rec: 06/02/21 08:43 MLV [id number]) Therapy Assessment Status Assessment Status Assessment Status Discharge Evaluation Information Problem Diagnosis vertigo;BPPV Onset worse in last year Cause none Additional Evaluation Detail The patient reports being compliant with his exercises and brought his log sheet to show how the intensity of symptoms rate with each round. The patient reports no changes in his symptoms/relief despite his compliance. The patient feels he needs to pursue sinus treatment/mgmt to determine if the cause of dizziness is related to sinus instead. The patient plans to contact his MD regarding the next step for assessment and plans to try taking his allergy pill regular for 2 weeks to see if that impacts his situation. 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
== END 2021-06-02 14:12 | disposition home or self-care (01) ==
LOC: ANHPT 08:00
PROVIDERS: PCP Internal Medicine; Visit Provider Internal Medicine
DX: H81.10 Benign paroxysmal vertigo, unspecified ear (principal)
CPT/HCPCS: 97110; 97162

== ENCOUNTER 2021-06-14 12:11 | Outpatient (CLI) | payer BC, SELFPAY ==
--- NOTE | ~2021-06-14 | MR_ITS ---
EXAMINATION: MR brain IAC wo/w con DATE: 06/14/2021 13:23 INDICATION: Dizziness and giddiness. TECHNIQUE: Magnetic resonance imaging (MRI) of the brain, brainstem, and internal auditory canals was performed without and with 15 mL MultiHance intravenous contrast. Sequences included sagittal and ax ial T1-weighted FSE, axial diffusion-weighted FS EPI, axial T2*-weighted GRE, axial T2-weighted FLAIR Propeller, axial T2-weighted Propeller, small knbzo-hj-gbxe coronal FIESTA, small uclgb-fx-gnxe justin nal T1-weighted FSE, and small ogwji-cz-zuuq axial T1-weighted SPGR. Postcontrast sequences included axial T1-weighted FSE, small lotis-su-gvkm coronal T1-weighted FSE, and small kwvoc-ly-vvtg axial T1- weighted SPGR. Apparent diffusion coefficient (ADC) maps were created. COMPARISON: Head CT 02/21/2009 FINDINGS: There is no intracranial hemorrhage, acute infarction, or abnormal intracranial mass lesion . The ventricles are normal in size. There is mucosal thickening in the paranasal sinuses. There are likely changes of ocular lens replacement surgeries. The internal auditory canals and inner and middl e ears are normal. The mastoid air cells are normal. IMPRESSION: 1. Normal brain. Reviewed, dictated and finalized at location B. URE MEDIA LABORATORY ASSISTANT IMPRESSION: 1. Normal brain.
[2021-06-14 12:47] LABS: Estimated Glomerular Filt Rate > 60
== END 2021-06-14 12:12 ==
PROVIDERS: PCP Internal Medicine; Visit Provider Internal Medicine
DX: R42 Dizziness and giddiness (principal)
CPT/HCPCS: 70553; A9577

== ENCOUNTER 2021-07-17 08:38 | Outpatient (CLI) | payer BC, SELFPAY ==
[2021-07-17 08:56] LABS: Basophils Absolute Auto 0.1 K/mm3 (0.0-0.1); Basophils Percent Auto 0.9 % (0.2-1.2); Eosinophils Absolute Auto 0.4 K/mm3 (0-0.3); Eosinophils Percent Auto 7.4 % (0-4.4); Hematocrit 45.8 % (42.0-52.0); Hemoglobin 14.9 g/dL (14.0-18.0); Immature Granulocyte Absolute 0.02 K/mm3 (0.00-0.031); Immature Granulocyte Percent A 0.3 % (0-0.5); Lymphocytes Absolute Auto 1.05 K/mm3 (0.9-3.2); Mean Corpuscular HGB Conc 32.5 g/dl (32-36); Mean Corpuscular Hemoglobin 29.3 pg (26-34); Mean Platelet Volume 9.8 fl (7.4-10.4); Monocytes Absolute Auto 0.4 K/mm3 (0.1-0.6); Neutrophils Absolute Auto 3.9 K/mm3 (1.3-6.7); Neutrophils Percent Auto 66.4 % (45.5-73.1); Platelet Count Result 152 k/mm3 (150-375); Red Blood Count 5.09 M/mm3 (4.6-6.20); Red Cell Distribution Width 12.8 % (11.5-14.5); White Blood Count 5.8 K/mm3 (4.5-10.0)
[2021-07-17 09:04] LABS: Hemoglobin A1C 10.1 % (<5.7)
[2021-07-17 09:13] LABS: Alanine Aminotransferase 28 U/L (4-50); Albumin Level 4.5 g/dL (3.5-5.1); Alkaline Phosphatase 82 U/L (38-126); Anion Gap 8 mmol/L (8-16); Aspartate Amino Transferase 34 U/L (17-59); Bilirubin,Total 0.8 mg/dL (0.2-1.3); Blood Urea Nitrogen 26 mg/dL (9-20); Calcium 9.5 mg/dL (8.4-10.2); Carbon Dioxide 26 mmol/L (22-30); Chloride 103 mmol/L (98-107); Cholesterol 82 mg/dL (0-200); Estimated Glomerular Filt Rate > 60; Glucose 198 mg/dL (65-110); HDL Direct 31 mg/dL; Sodium 137 mmol/L (137-145); Triglycerides 189 mg/dL (<150)
[2021-07-17 09:28] LABS: LDL Cholesterol Direct < 30 mg/dL
== END 2021-07-17 08:39 | disposition home or self-care (01) ==
PROVIDERS: PCP Internal Medicine; Visit Provider Internal Medicine
DX: I25.10 Atherosclerotic heart disease of native coronary artery without angina pectoris (principal); Z51.81 Encounter for therapeutic drug level monitoring; Z79.899 Other long term (current) drug therapy; I10 Essential (primary) hypertension; E78.2 Mixed hyperlipidemia; E11.9 Type 2 diabetes mellitus without complications; Z79.4 Long term (current) use of insulin
CPT/HCPCS: 36415; 80053; 80061; 83036; 85025

== ENCOUNTER → 2021-08-09 01:21 | Outpatient (CLI) | payer BC, SELFPAY ==
[2021-08-09 13:51] LABS: Influenza A QL RT-PCR Negative (Negative); Influenza B QL RT-PCR Negative (Negative); SARS-CoV-2 RNA PCR Negative
== END ==
PROVIDERS: PCP Internal Medicine; Visit Provider Internal Medicine
DX: R05.9 Cough, unspecified (principal); Z20.822 Contact with and (suspected) exposure to COVID-19
CPT/HCPCS: 87502; C9803; U0003; U0005

== ENCOUNTER 2021-11-03 09:51 | Outpatient (CLI) | payer MEDICARE, SELFPAY ==
[2021-11-03 11:05] LABS: HIV 1/2 Ab P24 Ag Result Negative (Negative)
[2021-11-03 12:06] LABS: Hepatitis B Surface Antigen Negative (Negative)
[2021-11-03 12:14] LABS: Hepatitis C Virus Antibody Negative (Negative)
== END 2021-11-03 09:52 | disposition home or self-care (01) ==
PROVIDERS: PCP Internal Medicine; Visit Provider Internal Medicine
DX: T14.90XA Injury, unspecified, initial encounter (principal); W46.1XXA Contact with contaminated hypodermic needle, initial encounter; Z11.4 Encounter for screening for human immunodeficiency virus [HIV]
CPT/HCPCS: 36415; 86703; 86803; 87340; G0432

== ENCOUNTER 2021-11-20 09:13 | Outpatient (CLI) | payer MEDICARE, SELFPAY ==
[2021-11-20 10:11] LABS: Anion Gap 8 mmol/L (8-16); Blood Urea Nitrogen 22 mg/dL (9-20); Calcium 9.4 mg/dL (8.4-10.2); Carbon Dioxide 29 mmol/L (22-30); Chloride 101 mmol/L (98-107); Cholesterol 85 mg/dL (0-200); Estimated Glomerular Filt Rate > 60; Glucose 286 mg/dL (65-110); HDL Direct 30 mg/dL; Sodium 138 mmol/L (137-145); Triglycerides 236 mg/dL (<150)
[2021-11-20 10:21] LABS: Hemoglobin A1C 9.6 % (<5.7)
[2021-11-20 11:11] LABS: LDL Cholesterol Direct < 30 mg/dL
== END 2021-11-20 09:14 | disposition home or self-care (01) ==
LOC: ANHLAB 09:16
PROVIDERS: PCP Internal Medicine; Visit Provider Internal Medicine
DX: E11.9 Type 2 diabetes mellitus without complications (principal); I10 Essential (primary) hypertension; Z79.4 Long term (current) use of insulin; E78.2 Mixed hyperlipidemia
CPT/HCPCS: 36415; 80048; 80061; 83036

== ENCOUNTER 2022-03-27 08:38 | Outpatient (CLI) | payer MEDICARE, SELFPAY ==
[2022-03-27 09:22] LABS: Hemoglobin A1C 8.8 % (<5.7)
[2022-03-27 09:24] LABS: Alanine Aminotransferase 23 U/L (6-50); Albumin Level 4.3 g/dL (3.5-5.1); Alkaline Phosphatase 76 U/L (38-126); Anion Gap 9 mmol/L (8-16); Aspartate Amino Transferase 31 U/L (17-59); Bilirubin,Total 0.9 mg/dL (0.2-1.3); Blood Urea Nitrogen 18 mg/dL (9-20); Calcium 11.2 mg/dL (8.4-10.2); Carbon Dioxide 31 mmol/L (22-30); Chloride 100 mmol/L (98-107); Cholesterol 63 mg/dL (0-200); Estimated Glomerular Filt Rate > 60; Glucose 88 mg/dL (65-110); HDL Direct 28 mg/dL; Potassium 4.2 mmol/L (3.4-5.0); Sodium 140 mmol/L (137-145); Triglycerides 140 mg/dL (<150)
[2022-03-27 09:55] LABS: LDL Cholesterol Direct < 30 mg/dL; Prostate Specific Antigen 0.7 ng/mL (< OR = 4.0)
[2022-03-27 10:15] LABS: Free T4 Free Thyroxine 0.99 ng/mL (0.78-2.19); Vitamin D 25 Hydroxy 35.7 ng/mL
== END 2022-03-27 08:39 | disposition home or self-care (01) ==
PROVIDERS: PCP Internal Medicine; Visit Provider Internal Medicine
DX: E78.2 Mixed hyperlipidemia (principal); I10 Essential (primary) hypertension; Z13.29 Encounter for screening for other suspected endocrine disorder; Z79.899 Other long term (current) drug therapy; E55.9 Vitamin D deficiency, unspecified; E11.9 Type 2 diabetes mellitus without complications; Z79.4 Long term (current) use of insulin; Z12.5 Encounter for screening for malignant neoplasm of prostate
CPT/HCPCS: 36415; 80053; 80061; 82306; 83036; 84153; 84439; 84443; G0103

== ENCOUNTER 2022-04-03 15:06 | Outpatient (CLI) | payer MEDICARE, SELFPAY ==
[2022-04-03 16:06] LABS: Parathyroid Intact 114.4 pg/mL (7.5-53.5)
[2022-04-05 14:35] LABS: Ionized Calcium 4.6 mg/dL (4.8-5.6)
== END 2022-04-03 15:07 | disposition home or self-care (01) ==
PROVIDERS: PCP Internal Medicine; Visit Provider Internal Medicine
DX: E83.52 Hypercalcemia (principal)
CPT/HCPCS: 36415; 82330; 83970

== ENCOUNTER 2022-08-27 07:45 | Outpatient (CLI) | payer MEDICARE, SELFPAY ==
[2022-08-27 08:36] LABS: Alanine Aminotransferase 27 U/L (6-50); Albumin Level 4.1 g/dL (3.5-5.1); Alkaline Phosphatase 67 U/L (38-126); Anion Gap 5 mmol/L (8-16); Aspartate Amino Transferase 34 U/L (17-59); Bilirubin,Total 0.5 mg/dL (0.2-1.3); Blood Urea Nitrogen 20 mg/dL (9-20); Calcium 8.5 mg/dL (8.4-10.2); Carbon Dioxide 29 mmol/L (22-30); Chloride 102 mmol/L (98-107); Cholesterol 84 mg/dL (0-200); Estimated Glomerular Filt Rate > 60; Glucose 123 mg/dL (65-110); HDL Direct 31 mg/dL; Potassium 4.4 mmol/L (3.4-5.0); Sodium 136 mmol/L (137-145); Triglycerides 173 mg/dL (<150)
[2022-08-27 08:43] LABS: Parathyroid Intact 88.5 pg/mL (7.5-53.5)
[2022-08-27 08:46] LABS: Free T4 Free Thyroxine 0.75 ng/mL (0.78-2.19); Vitamin D 25 Hydroxy 45.9 ng/mL
[2022-08-27 08:50] LABS: LDL Cholesterol Direct < 30 mg/dL
[2022-08-27 09:05] LABS: Creatinine Urine 93.8 mg/dL
[2022-08-27 09:08] LABS: MALB Creatinine Ratio 35.9 mg/g (0-30); Microalbumin Urine Random 33.7 mg/L (0-16.7)
== END 2022-08-27 07:46 | disposition home or self-care (01) ==
LOC: ANHLAB 07:46
PROVIDERS: PCP Internal Medicine; Visit Provider Internal Medicine
DX: E11.9 Type 2 diabetes mellitus without complications (principal); Z79.4 Long term (current) use of insulin; I10 Essential (primary) hypertension; E34.9 Endocrine disorder, unspecified; Z13.29 Encounter for screening for other suspected endocrine disorder; Z79.899 Other long term (current) drug therapy; E55.9 Vitamin D deficiency, unspecified; E78.2 Mixed hyperlipidemia
CPT/HCPCS: 36415; 80053; 80061; 82043; 82306; 83036; 83970; 84439; 84443

== ENCOUNTER 2022-09-03 13:54 | Outpatient (CLI) | payer MEDICARE, SELFPAY ==
--- NOTE | ~2022-09-03 | NM_ITS ---
EXAMINATION: NM thyroid scan w uptake DATE: 09/04/2022 14:38 INDICATION: Abnormal thyroid function tests. Low free T4. COMPARISON: None. TECHNIQUE: 0.327 mCi I-123 was administered orally. Scintigraphic images of the thyroid gland were o btained at 24 hours. Thyroid uptake was calculated by the technologist. FINDINGS: The thyroid uptake is 7% (normal 10-30%), with the right lobe measuring 5% uptake and the left 2%. Th ere is no focal area of decreased or increased activity to suggest hypofunctioning or hyperfunctionin g nodule. IMPRESSION: 1. Low 24-hour iodine uptake, consistent with hypothyroidism. Reviewed, dictated and finalized at location A. APEUTIC ACTIVITIES SERVICES WORKER
== END 2022-09-03 13:55 | disposition home or self-care (01) ==
PROVIDERS: PCP Internal Medicine; Visit Provider Internal Medicine
DX: R79.89 Other specified abnormal findings of blood chemistry (principal); R79.9 Abnormal finding of blood chemistry, unspecified
CPT/HCPCS: 36415; 78014; 84481; A9516

== ENCOUNTER 2022-09-11 11:11 | Outpatient (CLI) | payer MEDICARE, SELFPAY ==
--- NOTE | ~2022-09-11 | US_ITS ---
US thyroid INDICATION: Dysphasia and enlarged thyroid. TECHNIQUE: Real-time sonographic images of the thyroid gland were obtained. COMPARISON: Nuclear thyroid scan dated 09/04/2022 FINDINGS: The right thyroid lobe measures 5.1 x 1.8 x 1.9 cm. The left thyroid lobe measures 3.9 x 2 x 1.9 cm. There is normal echotexture and echogenicity throughout the thyroid gland. No discrete nod ules identified. Normal vascular flow is present. IMPRESSION: 1. Normal thyroid without discrete nodule or abnormal vascularity. Reviewed, dictated and finalized at location L. TOBACCO BULKER
== END 2022-09-11 11:12 | disposition home or self-care (01) ==
PROVIDERS: PCP Internal Medicine; Visit Provider Internal Medicine
DX: R79.89 Other specified abnormal findings of blood chemistry (principal); R79.9 Abnormal finding of blood chemistry, unspecified
CPT/HCPCS: 76536

== ENCOUNTER 2022-09-17 08:52 | Outpatient (CLI) | payer MEDICARE, SELFPAY ==
--- NOTE | ~2022-09-17 | NM_ITS ---
EXAMINATION: NM parathyroid imaging w spect DATE: 09/17/2022 13:22 INDICATION: Hyperparathyroidism. TECHNIQUE: 19.6 mCi Tc99m sestamibi was administered intravenously. Anterior images of the neck were obtained immediately and at 2 hours. SPECT images of the neck were obtained. COMPARISON: None. FINDINGS: There is no focus of persistent activity in the area of the thyroid or mediastinum to sugge st parathyroid adenoma. IMPRESSION: 1. No evidence of a parathyroid adenoma. Reviewed, dictated and finalized at location A. [employer]OR [employer]ODUCTION
== END 2022-09-17 08:53 | disposition home or self-care (01) ==
PROVIDERS: PCP Internal Medicine; Visit Provider Internal Medicine
DX: E34.9 Endocrine disorder, unspecified (principal); E83.52 Hypercalcemia
CPT/HCPCS: 78071; A9500

== ENCOUNTER 2022-11-22 08:00 | Outpatient (NON) | payer MEDICARE, SELFPAY | END 2022-11-22 08:01 | disposition home or self-care (01) | LOC: ANHLAB 11-23 15:04 | PROVIDERS: PCP Internal Medicine; Visit Provider Nurse Practitioner | DX: D49.2 Neoplasm of unspecified behavior of bone, soft tissue, and skin (principal) | CPT/HCPCS: 88305 ==

== ENCOUNTER 2022-12-24 11:39 | Outpatient (NON) | payer MEDICARE, SELFPAY | END 2022-12-24 11:40 | disposition home or self-care (01) | LOC: ANHLAB 12-26 11:39 | PROVIDERS: PCP Internal Medicine; Visit Provider Nurse Practitioner | DX: L85.8 Other specified epidermal thickening (principal); L90.5 Scar conditions and fibrosis of skin | CPT/HCPCS: 88305 ==

== ENCOUNTER 2022-12-31 14:36 | Outpatient (CLI) | payer MEDICARE, SELFPAY ==
[2022-12-31 15:24] LABS: Alanine Aminotransferase 26 U/L (6-50); Albumin Level 4.4 g/dL (3.5-5.1); Alkaline Phosphatase 73 U/L (38-126); Anion Gap 5 mmol/L (8-16); Aspartate Amino Transferase 31 U/L (17-59); Bilirubin,Total 0.7 mg/dL (0.2-1.3); Blood Urea Nitrogen 29 mg/dL (9-20); Calcium 8.4 mg/dL (8.4-10.2); Carbon Dioxide 30 mmol/L (22-30); Chloride 100 mmol/L (98-107); Cholesterol 78 mg/dL (0-200); Estimated Glomerular Filt Rate > 60; Glucose 267 mg/dL (65-110); HDL Direct 31 mg/dL; Potassium 5.2 mmol/L (3.4-5.0); Sodium 135 mmol/L (137-145); Triglycerides 257 mg/dL (<150)
[2022-12-31 15:45] LABS: Creatinine Urine 64.5 mg/dL
[2022-12-31 15:53] LABS: MALB Creatinine Ratio 12.4 mg/g (0-30)
[2022-12-31 16:12] LABS: Hemoglobin A1C 9.7 % (<5.7)
[2022-12-31 16:56] LABS: LDL Cholesterol Direct < 30 mg/dL
== END 2022-12-31 14:37 | disposition home or self-care (01) ==
LOC: ANHLAB 14:37
PROVIDERS: PCP Internal Medicine; Visit Provider Internal Medicine
DX: E11.9 Type 2 diabetes mellitus without complications (principal); I10 Essential (primary) hypertension; E78.2 Mixed hyperlipidemia; Z79.4 Long term (current) use of insulin
CPT/HCPCS: 36415; 80053; 80061; 82043; 83036

== ENCOUNTER 2023-03-11 08:00 | Outpatient (NON) | payer MEDICARE, SELFPAY | END 2023-03-11 08:01 | disposition home or self-care (01) | LOC: ANHLAB 03-12 09:28 | PROVIDERS: PCP Internal Medicine; Visit Provider Internal Medicine Gastroenterology | DX: Z12.11 Encounter for screening for malignant neoplasm of colon (principal) | CPT/HCPCS: 88305 ==

== ENCOUNTER 2023-03-11 08:38 | Day surgery (SDC) | payer MEDICARE, SELFPAY ==
[2023-03-04 09:55] VITALS: BMI 25.9
[2023-03-04 11:48] VITALS: BMI 25.4
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
[2023-03-11 09:10] VITALS: BP 123/70; PULSE 72; RESP 14; TEMP 36.9; O2SAT 99
[2023-03-11] MEDS: LACTATED RINGERS 1,000 ML 150 ML IV CONT (09:20)
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
[2023-03-11 11:22] VITALS: BP 85/54; PULSE 60; RESP 18; O2SAT 99
[2023-03-11 11:32] VITALS: BP 93/59; PULSE 59; RESP 16; O2SAT 97
[2023-03-11 11:59] VITALS: BP 102/65; PULSE 68; RESP 18; O2SAT 99
--- NOTE | 2023-03-11 12:36 | WPDANESPN ---
Anes - Prog Note Post-Op Date/Time: 03/11/23 12:36 Cardiovascular status: normal Respiratory status: normal Airway patency: baseline Mental status: baseline Post-Op hydration status: normal Vital Signs: Last Vital Signs Temp 36.9 C 03/11/23 09:10 Pulse 68 03/11/23 11:59 Resp 18 03/11/23 11:59 BP 102/65 03/11/23 11:59 Pulse Ox 99 03/11/23 11:59 O2 Del Method Room Air 03/11/23 11:59 Pain Score (VAS): 0 I/O: Intake & Output 03/10/23 03/11/23 03/11/23 23:59 07:59 15:59 Intake Total 700 Balance 700 Post-procedural complaints: none Patient Feedback: Patient satisfied with anesthetic care. Other Findings: Patient vital signs back to baseline. Patient denies nausea and vomiting. Patient's pain under control. Patient OK for discharge.
[2023-03-12 13:51] LABS: Glucose Point of Care 110 mg/dl (65-105)
== END 2023-03-11 12:01 | disposition home or self-care (01) ==
PROVIDERS: PCP Internal Medicine; Visit Provider Internal Medicine Gastroenterology
PROC: 0DJD8ZZ Inspection of Lower Intestinal Tract, Via Natural or Artificial Opening Endoscopic (ICD-10-PCS; CPT 45378; principal; 2023-03-11 10:30)
DX: R19.5 Other fecal abnormalities (principal); D12.2 Benign neoplasm of ascending colon; K62.1 Rectal polyp; K64.8 Other hemorrhoids
CPT/HCPCS: 45385

== ENCOUNTER 2023-06-03 14:38 | Outpatient (CLI) | payer MEDICARE, SELFPAY ==
--- NOTE | ~2023-06-03 | MR_ITS ---
EXAMINATION: MR brain/brain stem wo/w con DATE: 06/03/2023 17:07 INDICATION: Tinnitus, bilateral. TECHNIQUE: Magnetic resonance imaging (MRI) of the brain and brainstem was performed without and with 15 mL MultiHance intravenous contrast. COMPARISON: Brain MRI 06/14/2021 FINDINGS: There are scattered areas of nonspecific increased T2-weighted signal intensity in the cere bral white matter and cheryle, which is within normal limits for the patient's age. There is no intracra nial hemorrhage, acute infarction, or abnormal intracranial mass lesion. The ventricles are normal in size. There is mucosal thickening in the paranasal sinuses. There are likely changes of ocular lens replacement surgeries. The internal auditory canals and inner ears and tympanic cavities are normal. The mastoid air cells are normal. IMPRESSION: 1. Normal aging brain. Reviewed, dictated and finalized at location A. ORATE BOND TRADER IMPRESSION: 1. Normal aging brain.
== END 2023-06-03 14:39 | disposition home or self-care (01) ==
PROVIDERS: PCP Internal Medicine; Visit Provider Internal Medicine
DX: H93.13 Tinnitus, bilateral (principal); H81.10 Benign paroxysmal vertigo, unspecified ear; H91.90 Unspecified hearing loss, unspecified ear
CPT/HCPCS: 70553; A9577

== ENCOUNTER 2023-06-24 11:46 | Outpatient (CLI) | payer MEDICARE, SELFPAY ==
[2023-06-24 12:55] LABS: Alanine Aminotransferase 20 U/L (6-50); Alkaline Phosphatase 84 U/L (38-126); Anion Gap 10 mmol/L (8-16); Aspartate Amino Transferase 30 U/L (17-59); Bilirubin,Total 0.7 mg/dL (0.2-1.3); Blood Urea Nitrogen 24 mg/dL (9-20); Carbon Dioxide 27 mmol/L (22-30); Chloride 100 mmol/L (98-107); Cholesterol 98 mg/dL (0-200); Estimated Glomerular Filt Rate > 60; Glucose 224 mg/dL (65-110); HDL Direct 28 mg/dL; Potassium 4.4 mmol/L (3.4-5.0); Sodium 137 mmol/L (137-145); Triglycerides 194 mg/dL (<150)
[2023-06-24 12:56] LABS: Parathyroid Intact 66.8 pg/mL (7.5-53.5)
[2023-06-24 13:06] LABS: LDL Cholesterol Direct 50 mg/dL
[2023-06-24 13:24] LABS: Prostate Specific Antigen 0.7 ng/mL (< OR = 4.0)
[2023-06-24 13:52] LABS: Vitamin D 25 Hydroxy 33.9 ng/mL
[2023-06-24 14:13] LABS: Hemoglobin A1C 8.3 % (<5.7)
== END 2023-06-24 11:47 | disposition home or self-care (01) ==
PROVIDERS: PCP Internal Medicine; Visit Provider Internal Medicine
DX: E34.9 Endocrine disorder, unspecified (principal); Z12.5 Encounter for screening for malignant neoplasm of prostate; E11.9 Type 2 diabetes mellitus without complications; Z79.4 Long term (current) use of insulin; I10 Essential (primary) hypertension; E55.9 Vitamin D deficiency, unspecified; E78.5 Hyperlipidemia, unspecified
CPT/HCPCS: 36415; 80053; 80061; 82306; 82330; 83036; 83970; 84153; G0103

== ENCOUNTER 2023-07-05 07:45 | Outpatient (CLI) | payer MEDICARE, SELFPAY ==
[2023-07-07 22:24] LABS: Ionized Calcium 4.6 mg/dL (4.7-5.5)
== END 2023-07-05 07:46 | disposition home or self-care (01) ==
LOC: ANHLAB 07:47
PROVIDERS: PCP Internal Medicine; Visit Provider Internal Medicine
DX: E83.52 Hypercalcemia (principal); E34.9 Endocrine disorder, unspecified
CPT/HCPCS: 36415; 82330

== ENCOUNTER 2023-08-29 19:58 | Observation (INO) | payer MEDICARE, SELFPAY ==
[2023-08-29] VITALS (11 sets, daily range): BP systolic 153–184; BP diastolic 84–98; PULSE 57–60; RESP 12–17; TEMP 33.4–35; O2SAT 100
--- NOTE | ~2023-08-29 | CT_ITS ---
Non-contrast CT scan of the Abdomen and Pelvis Clinical indication: Nausea, vomiting Technique: 2.5 mm axial scans were obtained through the abdomen and pelvis without intravenous or or al contrast. Dose reduction technique was used on this scan by utilizing automated exposure control a nd iterative reconstruction technique. The dose-length product (DLP) was 477.27 mGy-cm. Findings: Images through the lung bases reveal 6 mm left basilar pulmonary nodule (axial image 40).. There is no evidence of renal or ureteral calculi. The kidneys and the ureters are nondilated. The liver, spleen, pancreas, gallbladder, and adrenals appear normal. There is no aortic aneurysm. There is no evidence of bowel obstruction. Images through the pelvis were performed. There is no evidence of ascites or lymphadenopathy. Urinary bladder unremarkable. Prostate gland and seminal vesicles are unremarkable. Large fat-containing rig ht inguinal hernia present. Impression: Large fat-containing right inguinal hernia. 6 mm left basilar pulmonary nodule. According to Fleischner Society criteria, for a low-risk patient, follow-up CT scan in 6-12 months recommended. Consider additional 18-[address] For a high-risk pa tient, follow-up CT scans at 6-12 months and 18-24 months are recommended. Reviewed, dictated and finalized at location [facility] [employer] Impression: Large fat-containing right inguinal hernia. 6 mm left basilar pulmonary nodule. According to Fleischner Society criteria, f or a low-risk patient, follow-up CT scan in 6-12 months recommended. Consider a dditional 18-[address] For a high-risk patient, follow-up CT scans at 6-12 m onths and 18-24 months are recommended.
--- NOTE | ~2023-08-29 | XR_ITS ---
EXAMINATION: XR chest 1V portable DATE: 08/29/2023 22:53 INDICATION: Cough. TECHNIQUE: A single frontal view of the chest was obtained. COMPARISON: Chest 2 views 03/29/2009 FINDINGS: There is no pneumonia, pleural effusion, or pneumothorax. The heart size is normal. IMPRESSION: 1. No acute cardiopulmonary disease. Reviewed, dictated and finalized at location [facility]. [facility]
--- NOTE | 2023-08-29 20:50 | PC.NURSE ---
Pt rectal temp of 92.2 F. sales assoc made aware, josefa [place] applied.
[2023-08-29 21:54] LABS: Basophils Percent Auto 0.3 % (0.2-1.2); Eosinophils Absolute Auto 0.1 K/mm3 (0-0.3); Hemoglobin 15.4 g/dL (14.0-18.0); Immature Granulocyte Absolute 0.05 K/mm3 (0.00-0.031); Immature Granulocyte Percent A 0.6 % (0-0.5); Immature Platelet Fraction Pct 4.6 % (0.9-11.2); Lymphocytes Absolute Auto 0.68 K/mm3 (0.9-3.2); Lymphocytes Percent Auto 7.7 % (18.3-44.2); Mean Corpuscular HGB Conc 32.1 g/dl (32-36); Mean Corpuscular Hemoglobin 28.9 pg (26-34); Mean Corpuscular Volume 90.2 fl (80-100); Mean Platelet Volume 10.2 fl (7.4-10.4); Monocytes Absolute Auto 0.5 K/mm3 (0.1-0.6); Monocytes Percent Auto 5.1 % (2.6-8.5); Neutrophils Absolute Auto 7.6 K/mm3 (1.3-6.7); Neutrophils Percent Auto 85.3 % (45.5-73.1); Platelet Count Result 135 k/mm3 (150-375); Red Blood Count 5.32 M/mm3 (4.6-6.20); Red Cell Distribution Width 13.2 % (11.5-14.5); White Blood Count 8.9 K/mm3 (4.5-10.0)
[2023-08-29 22:06] LABS: Anion Gap 7 mmol/L (8-16); Blood Urea Nitrogen 25 mg/dL (9-20); Calcium 9.7 mg/dL (8.4-10.2); Carbon Dioxide 28 mmol/L (22-30); Chloride 104 mmol/L (98-107); Estimated CRCL calculation 71 ml/min; Estimated Glomerular Filt Rate > 60; Glucose 55 mg/dL (65-110); Sodium 139 mmol/L (137-145)
--- NOTE | 2023-08-29 22:47 | ECG_ITS ---
Measurements Intervals [place] Rate: 68 P: 6 DE: 138 QRS: 27 QRSD: 100 T: 63 QT: 406 QTc: 434 Interpretive Statements SINUS RHYTHM POSSIBLE LEFT ATRIAL ENLARGEMENT [-0.1mV P WAVE IN V1/V2] NONSPECIFIC T-WAVE ABNORMALITY BORDERLINE ECG NO PREVIOUS ECG AVAILABLE FOR COMPARISON Electronically Signed On 08-30-2023 7:17:41 FOREST RESOURCE SPECIALIST by Matthew Damico M.D.
[2023-08-29 23:00] LABS: Glucose Point of Care 80 mg/dl (65-105)
[2023-08-29 23:36] LABS: Troponin I < 0.012 ng/mL (0.000-0.034)
[2023-08-29] MEDS: DEXTROSE 5%/0.9% SOD CHL 1,000 ML 100 ML IV CONT (23:47)
[2023-08-30] VITALS (17 sets, daily range): BP systolic 104–153; BP diastolic 63–79; PULSE 64–99; RESP 14–20; TEMP 35.9–36.6; O2SAT 94–99; BMI 26.2
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
[2023-08-30 00:48] LABS: Appearance Urine Clear (Clear); Bacteria Urine None Seen /hpf; Bilirubin Urine Negative (Negative); Blood Urine Negative (Negative); Color Urine Yellow (Yellow); Glucose Urine UA 3+ mg/dL (Negative); Ketones Urine Negative (Negative); Leukocyte Esterase Ur Negative LEU/UL (Negative); Nitrate Urine Negative (Negative); Protein Urine Trace mg/dL (Negative); RBC Urine 0-2 /hpf (0-2); Squamous Epithelial Cell Urine None seen /hpf (Few); Urobilinogen Urine 0.2 mg/dL (<2.0); WBC Urine 0-5 /hpf
[2023-08-30 01:09] LABS: Add Urine Microscopic? YES; Specific Grav Ur 1.038 (1.001-1.035)
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
[2023-08-30 02:50] LABS: Glucose Point of Care 129 mg/dl (65-105)
[2023-08-30 02:51] LABS: Glucose Point of Care 98 mg/dl (65-105)
[2023-08-30] MEDS: SODIUM CHLORIDE 0.9% IV 2,000 ML 999 ML IV CONT (02:59)
[2023-08-30] MEDS: ONDANSETRON INJ 4 MG/2 ML VIAL IV PUSH (03:00)
--- NOTE | 2023-08-30 03:00 | PC.NURSE ---
@0200 pt began having episodes of diarrhea, vomiting. Since pt has had around 4 episodes of diarrhea and 4 episodes of vomiting. Hospitalist made aware.
[2023-08-30 04:16] LABS: IFOB Positive Control Positive; Immunochemical Fecal Occult Bl Positive (N)
[2023-08-30 04:22] LABS: Glucose Point of Care 113 mg/dl (65-105)
[2023-08-30] MEDS: PROMETHAZINE HCL 25 MG/ML AMPUL 12.5 MG IV PUSH (04:28)
[2023-08-30 04:35] LABS: Toxigenic C. Diff NEGATIVE (NEGATIVE)
[2023-08-30 05:43] LABS: Glucose Point of Care 94 mg/dl (65-105)
--- NOTE | 2023-08-30 06:50 | PC.NURSE ---
This patient, Vern Molina, was admitted to IMU Room 203-01 at 0643 Patient/family oriented to hospital policies and general routines including ID bracelet, bed and alarms, visiting hours, pain management, procedures, bathroom and other care routines, personal items, smoking policy, room service/diet, and visiting hours. Information on how to activate the Rapid Response Team has been discussed. Patient/Family are encouraged to report perceived risks to care and to ask questions if they do not understand what they are told or what they should do.
[2023-08-30 07:33] LABS: Glucose Point of Care 92 mg/dl (65-105)
[2023-08-30 07:33] LABS: Basophils Percent Auto 0.3 % (0.2-1.2); Eosinophils Percent Auto 0.3 % (0-4.4); Hemoglobin 13.8 g/dL (14.0-18.0); Immature Granulocyte Absolute 0.03 K/mm3 (0.00-0.031); Immature Granulocyte Percent A 0.4 % (0-0.5); Immature Platelet Fraction Pct 4.1 % (0.9-11.2); Mean Corpuscular HGB Conc 31.4 g/dl (32-36); Mean Corpuscular Hemoglobin 28.8 pg (26-34); Mean Corpuscular Volume 91.7 fl (80-100); Mean Platelet Volume 9.7 fl (7.4-10.4); Monocytes Absolute Auto 0.2 K/mm3 (0.1-0.6); Monocytes Percent Auto 2.8 % (2.6-8.5); Neutrophils Absolute Auto 7.3 K/mm3 (1.3-6.7); Neutrophils Percent Auto 91.2 % (45.5-73.1); Platelet Count Result 137 k/mm3 (150-375); Red Cell Distribution Width 13.3 % (11.5-14.5)
[2023-08-30 07:35] LABS: Glucose Point of Care 113 mg/dl (65-105)
[2023-08-30 07:37] LABS: Lactic Acid Reflex 0.6 mmol/L (0.7-2.0)
[2023-08-30 07:38] LABS: Anion Gap 5 mmol/L (8-16); Blood Urea Nitrogen 24 mg/dL (9-20); Calcium 8.3 mg/dL (8.4-10.2); Carbon Dioxide 26 mmol/L (22-30); Chloride 108 mmol/L (98-107); Estimated CRCL calculation 69 ml/min; Estimated Glomerular Filt Rate > 60; Glucose 103 mg/dL (65-110); Magnesium 1.8 mg/dL (1.6-2.3); Phosphorus 3.5 mg/dL (2.5-4.5); Potassium 4.4 mmol/L (3.4-5.0); Sodium 139 mmol/L (137-145)
[2023-08-30 10:28] LABS: Glucose Point of Care 120 mg/dl (65-105)
[2023-08-30 20:36] LABS: Glucose Point of Care 214 mg/dl (65-105)
[2023-08-30 21:10] LABS: Toxigenic C. Diff NEGATIVE (NEGATIVE)
[2023-08-30] MEDS: INSULIN GLARGINE (*BKC) 100 UNITS/ML 24 UNITS SUB-Q (21:42)
[2023-08-30] MEDS: LOPERAMIDE HCL 2 MG CAPSULE PO ×2 (21:43→23:01)
[2023-08-31] VITALS (9 sets, daily range): BP systolic 125–142; BP diastolic 69–74; PULSE 62–76; RESP 14–16; TEMP 36.2–36.7; O2SAT 97–100
[2023-08-31] MEDS: LOPERAMIDE HCL 2 MG CAPSULE PO ×3 (02:57→09:10)
[2023-08-31 03:07] LABS: Glucose Point of Care 225 mg/dl (65-105)
[2023-08-31 04:57] LABS: Basophils Percent Auto 0.5 % (0.2-1.2); Eosinophils Absolute Auto 0.2 K/mm3 (0-0.3); Eosinophils Percent Auto 2.7 % (0-4.4); Hematocrit 48.2 % (42.0-52.0); Hemoglobin 15.4 g/dL (14.0-18.0); Immature Granulocyte Absolute 0.01 K/mm3 (0.00-0.031); Immature Granulocyte Percent A 0.1 % (0-0.5); Lymphocytes Absolute Auto 0.71 K/mm3 (0.9-3.2); Lymphocytes Percent Auto 9.3 % (18.3-44.2); Mean Corpuscular Hemoglobin 29.1 pg (26-34); Mean Corpuscular Volume 90.9 fl (80-100); Mean Platelet Volume 9.8 fl (7.4-10.4); Monocytes Absolute Auto 0.5 K/mm3 (0.1-0.6); Monocytes Percent Auto 6.7 % (2.6-8.5); Neutrophils Absolute Auto 6.2 K/mm3 (1.3-6.7); Neutrophils Percent Auto 80.7 % (45.5-73.1); Platelet Count Result 157 k/mm3 (150-375); Red Cell Distribution Width 13.5 % (11.5-14.5); White Blood Count 7.7 K/mm3 (4.5-10.0)
[2023-08-31 05:11] LABS: Anion Gap 7 mmol/L (8-16); Blood Urea Nitrogen 20 mg/dL (9-20); Calcium 9.1 mg/dL (8.4-10.2); Carbon Dioxide 28 mmol/L (22-30); Chloride 104 mmol/L (98-107); Estimated CRCL calculation 69 ml/min; Estimated Glomerular Filt Rate > 60; Glucose 179 mg/dL (65-110); Magnesium 2.1 mg/dL (1.6-2.3); Potassium 4.1 mmol/L (3.4-5.0); Sodium 139 mmol/L (137-145)
[2023-08-31 06:10] LABS: Glucose Point of Care 151 mg/dl (65-105)
[2023-08-31 06:10] LABS: Glucose Point of Care 141 mg/dl (65-105)
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
[2023-08-31 12:11] LABS: Glucose Point of Care 114 mg/dl (65-105)
--- NOTE | 2023-08-31 13:16 | PC.NURSE ---
1130 Discharge education completed. IV removed intact. The pt waited for ride from family. The pt was escorted down to a private vehicle. Denied pain no manifestations of distress noted prior to discharge from the campus. All belonging removed per pt. The pt was escorted down in a private vehicle in a w/c per escort of PCT with no distress noted at the time of exit from the campus.
[2023-08-31 16:49] LABS: Glucose Point of Care 255 mg/dl (65-105)
[2023-09-04 10:48] LABS: Glucose Point of Care 185 mg/dl (65-105)
[2023-09-06 22:39] LABS: Calprotectin, Stool 247 mcg/g
== END 2023-08-31 12:45 | disposition home or self-care (01) ==
LOC: ANHED 08-30 01:47 → ANHIMU 08-30 05:47
PROVIDERS: Admitting Provider Internal Medicine; Emergency Provider Emergency Medicine; PCP Internal Medicine; Visit Provider General Practice
DX: T38.3X1A Poisoning by insulin and oral hypoglycemic [antidiabetic] drugs, accidental (unintentional), initial encounter (principal); E11.649 Type 2 diabetes mellitus with hypoglycemia without coma; R11.2 Nausea with vomiting, unspecified; R19.5 Other fecal abnormalities; R19.7 Diarrhea, unspecified; E11.42 Type 2 diabetes mellitus with diabetic polyneuropathy; I25.10 Atherosclerotic heart disease of native coronary artery without angina pectoris; I10 Essential (primary) hypertension; E78.5 Hyperlipidemia, unspecified; Z79.84 Long term (current) use of oral hypoglycemic drugs; Z79.82 Long term (current) use of aspirin; Z79.4 Long term (current) use of insulin
CPT/HCPCS: 36415; 71045; 74176; 80048; 81001; 82274; 82948; 83605; 83735; 83993; 84100; 84484; 85025; 85055; 87045; 87427; 87449; 87493; 89055; 93005; 96361; 96374; 96375; 99285; A9270; G0378; J1815; J2405; J2550; J7030; J7042

== ENCOUNTER 2023-10-03 07:11 | Outpatient (NON) | payer MEDICARE, SELFPAY | END 2023-10-03 07:12 | disposition home or self-care (01) | PROVIDERS: PCP Internal Medicine; Visit Provider Internal Medicine Gastroenterology | DX: R19.5 Other fecal abnormalities (principal); K21.00 Gastro-esophageal reflux disease with esophagitis, without bleeding | CPT/HCPCS: 88305 ==

== ENCOUNTER 2023-10-03 08:05 | Day surgery (SDC) | payer MEDICARE, SELFPAY ==
[2023-09-17 09:37] VITALS: BMI 26.4
[2023-09-20 09:21] VITALS: BMI 25.0
--- NOTE | 2023-09-20 10:11 | PC.NURSE ---
instructed patient to call diabetic medication prescribing physician to discuss dosage of meds during the 2 day colon prep for upcoming colonoscopy--pt was transferring to dr. calvillo's office to discuss lack of paperwork to follow for prescribed two day prep and missing prep solution at pharmacy
[2023-10-03 09:50] VITALS: BP 142/83; PULSE 74; RESP 20; TEMP 37.1; O2SAT 100
--- NOTE | 2023-10-03 10:34 | WPDHPUPDATE1 ---
History and Physical Update Update Date/Time: 10/03/23 10:34 History and Physical has been reviewed, including an updated exam of the patient. There are NO changes in the patient's condition. Risks, benefits, and alternatives have been discussed and questions answered. Patient agrees to proceed with procedure.
[2023-10-03 10:41] LABS: Glucose Point of Care 185 mg/dl (65-105)
[2023-10-03] MEDS: LACTATED RINGERS 1,000 ML 150 ML IV CONT (10:46)
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
[2023-10-03] MEDS: SIMETHICONE ORAL SUSPENSION 20 MG/0.3 ML 30 ML BOTTLE 0.6 ML IRRIGATION (11:58)
[2023-10-03 12:09] VITALS: BP 78/51; PULSE 65; RESP 15; O2SAT 98
[2023-10-03 12:19] VITALS: BP 98/72; PULSE 70; RESP 15; O2SAT 99
[2023-10-03 12:29] VITALS: BP 105/60; PULSE 70; RESP 15; O2SAT 99
--- NOTE | 2023-10-03 13:08 | WPDANESPN ---
Anes - Prog Note Post-Op Date/Time: 10/03/23 13:08 Cardiovascular status: normal Respiratory status: normal Airway patency: baseline Mental status: baseline Post-Op hydration status: normal Vital Signs: Last Vital Signs Temp 37.1 C 10/03/23 09:50 Pulse 70 10/03/23 12:29 Resp 15 10/03/23 12:29 BP 105/60 10/03/23 12:29 Pulse Ox 99 10/03/23 12:29 O2 Del Method Room Air 10/03/23 12:29 Pain Score (VAS): 0 I/O: Intake & Output 10/02/23 10/03/23 10/03/23 23:59 07:59 15:59 Intake Total 600 Balance 600 10/03/23 10:38 POC Capillary Glucose 185 H Patient Feedback: Patient satisfied with anesthetic care.
== END 2023-10-03 13:00 | disposition home or self-care (01) ==
PROVIDERS: PCP Internal Medicine; Visit Provider Internal Medicine Gastroenterology
PROC: 0DJ08ZZ Inspection of Upper Intestinal Tract, Via Natural or Artificial Opening Endoscopic (ICD-10-PCS; CPT 43235; principal; 2023-10-03 11:00)
PROC: 0DJD8ZZ Inspection of Lower Intestinal Tract, Via Natural or Artificial Opening Endoscopic (ICD-10-PCS; CPT 45378; 2023-10-03 11:00)
DX: R19.5 Other fecal abnormalities (principal); K21.9 Gastro-esophageal reflux disease without esophagitis; K64.8 Other hemorrhoids; R13.19 Other dysphagia
CPT/HCPCS: 45378; 43239; 43450

== ENCOUNTER 2023-11-06 15:03 | Outpatient (CLI) | payer MEDICARE, SELFPAY ==
[2023-11-06 15:43] LABS: Anion Gap 3 mmol/L (4-12); Blood Urea Nitrogen 25 mg/dL (9-20); Carbon Dioxide 27 mmol/L (22-30); Chloride 107 mmol/L (98-107); Cholesterol 117 mg/dL (0-200); Estimated Glomerular Filt Rate > 60; Glucose 91 mg/dL (65-110); HDL Direct 44 mg/dL; Potassium 4.9 mmol/L (3.4-5.0); Sodium 137 mmol/L (137-145); Triglycerides 96 mg/dL (<150)
[2023-11-06 15:54] LABS: LDL Cholesterol Direct 62 mg/dL
[2023-11-06 16:28] LABS: Free T4 Free Thyroxine 0.82 ng/mL (0.78-2.19); Vitamin D 25 Hydroxy 45.3 ng/mL
[2023-11-06 18:01] LABS: Creatinine Urine 62.6 mg/dL
[2023-11-06 18:05] LABS: MALB Creatinine Ratio 33.7 mg/g (0-30); Microalbumin Urine Random 21.1 mg/L (0-16.7)
[2023-11-07 08:17] LABS: Thyroid Stimulating Hormone 0.947 uIU/mL (0.465-4.680)
== END 2023-11-06 15:04 | disposition home or self-care (01) ==
LOC: ANHLAB 15:08
PROVIDERS: PCP Internal Medicine; Visit Provider Internal Medicine
DX: E55.9 Vitamin D deficiency, unspecified (principal); I10 Essential (primary) hypertension; E11.9 Type 2 diabetes mellitus without complications; Z79.4 Long term (current) use of insulin; E78.2 Mixed hyperlipidemia; R79.89 Other specified abnormal findings of blood chemistry
CPT/HCPCS: 36415; 80048; 80061; 82043; 82306; 83036; 84439; 84443

== ENCOUNTER 2024-03-21 09:08 | Outpatient (CLI) | payer MEDICARE, SELFPAY ==
[2024-03-21 10:03] LABS: Alanine Aminotransferase 17 U/L (6-50); Albumin Level 4.3 g/dL (3.5-5.1); Alkaline Phosphatase 62 U/L (38-126); Anion Gap 7 mmol/L (4-12); Aspartate Amino Transferase 31 U/L (17-59); Blood Urea Nitrogen 22 mg/dL (9-20); Calcium 8.7 mg/dL (8.4-10.2); Carbon Dioxide 32 mmol/L (22-30); Chloride 99 mmol/L (98-107); Cholesterol 114 mg/dL (0-200); Estimated Glomerular Filt Rate > 60; Glucose 86 mg/dL (65-110); HDL Direct 39 mg/dL; Potassium 3.9 mmol/L (3.4-5.0); Sodium 138 mmol/L (137-145); Triglycerides 129 mg/dL (<150)
[2024-03-21 10:15] LABS: LDL Cholesterol Direct 48 mg/dL
[2024-03-21 10:24] LABS: Hemoglobin A1C 9.9 % (<5.7)
[2024-03-21 10:54] LABS: Free T4 Free Thyroxine 1.02 ng/mL (0.78-2.19)
== END 2024-03-21 09:09 | disposition home or self-care (01) ==
PROVIDERS: PCP Internal Medicine; Visit Provider Internal Medicine
DX: E11.9 Type 2 diabetes mellitus without complications (principal); Z13.29 Encounter for screening for other suspected endocrine disorder; Z79.899 Other long term (current) drug therapy; Z79.4 Long term (current) use of insulin; E78.2 Mixed hyperlipidemia; I10 Essential (primary) hypertension
CPT/HCPCS: 36415; 80053; 80061; 83036; 84439; 84443

== ENCOUNTER 2024-07-20 15:18 | Outpatient (CLI) | payer MEDICARE, SELFPAY ==
--- NOTE | ~2024-07-20 | XR_ITS ---
CHEST RADIOGRAPH, PA AND LATERAL CLINICAL HISTORY: R05.9 - Cough . COMPARISON: 08/29/2023 TECHNIQUE: PA and lateral views of the chest. FINDINGS The cardiomediastinal silhouette is unremarkable. The lungs are clear. Visualized osseous structures and soft tissues are unremarkable. IMPRESSION: No focal infiltrate or effusion. Reviewed, dictated and finalized at location A. [employer]
[2024-07-20 16:10] LABS: Influenza A QL RT-PCR Negative (Negative); Influenza B QL RT-PCR Negative (Negative); RSV RNA, RT-PCR Negative (Negative); SARS-CoV-2 RNA PCR Negative (Negative)
== END 2024-07-20 15:19 | disposition home or self-care (01) ==
LOC: ANHLAB 15:19
PROVIDERS: PCP Internal Medicine; Visit Provider Internal Medicine
DX: R05.9 Cough, unspecified (principal); Z20.822 Contact with and (suspected) exposure to COVID-19
CPT/HCPCS: 71046; 87637

== ENCOUNTER 2024-08-03 07:35 | Outpatient (CLI) | payer MEDICARE, SELFPAY ==
[2024-08-03 07:52] LABS: Basophils Percent Auto 0.3 % (0.2-1.2); Eosinophils Absolute Auto 0.1 K/mm3 (0-0.3); Hematocrit 43.1 % (42.0-52.0); Hemoglobin 14.2 g/dL (14.0-18.0); Immature Granulocyte Absolute 0.02 K/mm3 (0.00-0.031); Immature Granulocyte Percent A 0.3 % (0-0.5); Lymphocytes Absolute Auto 1.16 K/mm3 (0.9-3.2); Lymphocytes Percent Auto 19.5 % (18.3-44.2); Mean Corpuscular HGB Conc 32.9 g/dl (32-36); Mean Corpuscular Hemoglobin 29.8 pg (26-34); Mean Corpuscular Volume 90.4 fl (80-100); Mean Platelet Volume 9.3 fl (7.4-10.4); Monocytes Absolute Auto 0.4 K/mm3 (0.1-0.6); Neutrophils Absolute Auto 4.3 K/mm3 (1.3-6.7); Neutrophils Percent Auto 71.9 % (45.5-73.1); Platelet Count Result 159 k/mm3 (150-375); Red Blood Count 4.77 M/mm3 (4.6-6.20); Red Cell Distribution Width 13.1 % (11.5-14.5)
[2024-08-03 08:06] LABS: Alanine Aminotransferase 26 U/L (6-50); Albumin Level 4.2 g/dL (3.5-5.1); Alkaline Phosphatase 75 U/L (38-126); Anion Gap 3 mmol/L (4-12); Aspartate Amino Transferase 32 U/L (17-59); Bilirubin,Total 0.8 mg/dL (0.2-1.3); Blood Urea Nitrogen 35 mg/dL (9-20); Calcium 8.9 mg/dL (8.4-10.2); Carbon Dioxide 31 mmol/L (22-30); Chloride 102 mmol/L (98-107); Cholesterol 170 mg/dL (0-200); Estimated Glomerular Filt Rate > 60; Glucose 220 mg/dL (65-110); HDL Direct 43 mg/dL; Potassium 3.9 mmol/L (3.4-5.0); Sodium 136 mmol/L (137-145); Triglycerides 320 mg/dL (<150)
[2024-08-03 08:17] LABS: LDL Cholesterol Direct 70 mg/dL
[2024-08-03 08:18] LABS: Hemoglobin A1C 10.7 % (<5.7)
[2024-08-03 08:35] LABS: Prostate Specific Antigen 0.8 ng/mL (< OR = 4.0); Thyroid Stimulating Hormone 0.498 uIU/mL (0.465-4.680)
[2024-08-03 08:58] LABS: Free T4 Free Thyroxine 0.83 ng/dL (0.78-2.19)
[2024-08-03 09:39] LABS: Vitamin D 25 Hydroxy 48.4 ng/mL
== END 2024-08-03 07:36 | disposition home or self-care (01) ==
LOC: ANHLAB 07:36
PROVIDERS: PCP Internal Medicine; Visit Provider Internal Medicine
DX: Z79.899 Other long term (current) drug therapy (principal); R79.89 Other specified abnormal findings of blood chemistry; E11.9 Type 2 diabetes mellitus without complications; Z79.4 Long term (current) use of insulin; E78.2 Mixed hyperlipidemia; Z12.5 Encounter for screening for malignant neoplasm of prostate; E55.9 Vitamin D deficiency, unspecified; E78.5 Hyperlipidemia, unspecified; I10 Essential (primary) hypertension
CPT/HCPCS: 36415; 80053; 80061; 82306; 83036; 84153; 84439; 84443; 85025; G0103

== ENCOUNTER 2024-08-21 14:51 | Outpatient (CLI) | payer MEDICARE, SELFPAY ==
--- NOTE | ~2024-08-21 | CT_ITS ---
EXAMINATION:CT diagnostic chest wo con DATE: 08/21/2024 15:46 INDICATION: Solitary pulmonary nodule. TECHNIQUE: Computed tomography (CT) of the chest was performed without intravenous contrast. Automate d exposure control and iterative reconstruction technique were employed. The dose-length product (DLP ) was 128.80 mGy-cm. COMPARISON: CT abdomen and pelvis 08/30/2023 FINDINGS: The lungs demonstrate mild atelectasis. There is a 6 mm nodule in left lower lobe. No pleur al effusion. The heart size is normal. There are coronary artery calcifications. No pericardial effus ion. There is mild thoracic spondylosis. IMPRESSION: 1. Stable 6 mm pulmonary nodule, likely benign. Consider noncontrast low-dose chest CT in 12 months. Reviewed, dictated and finalized at location A. EM ANALYST IMPRESSION: 1. Stable 6 mm pulmonary nodule, likely benign. Consider noncontrast low-dose c hest CT in 12 months.
--- OUTSIDE RECORDS SUMMARY | 2024-08-21 14:56 | XMS_ITS | Clinical Summary ---
Author Organization [facility] 2 Address [address] [facility] [place] [address] Care Team Providers Care Account Executive Healthcare Name Role Phone Jeramie Dempsey MD Primary Care Provider [phone] Allergies Active Allergy Reactions Criticality Noted Date Comments Amoxicillin Hives High Propylene Glycol Rash Medium 04/22/2020 Medications aspirin 81 mg tablet Take 1 tablet (81 mg total) by mouth daily 02/09/20 11 Active insulin syringe-needle U-100 1/2 mL 30 gauge x 1/2 syringe to use with lantus inuslin 07/24/19 14 Active cholecalciferol (VITAMIN D-3) 2,000 unit capsule daily. A ctive NOVOTWIST 32 gauge x 1/5 needle USE UP TO THREE TIMES DAILY FOR INSULIN INJECTIONS. 100 each 10/02/19 Active CONTOUR NEXT TEST STRIPS strip USE 5 STRIPS TO CHECK BLOOD SUGAR DAILY 200 each 03/20/20 19 Active blood-glucose sensor (DEXCOM G6 SENSOR) deviceIndications: Uncontrolled type 2 diabetes mellitus with insulin therapy Will use 1 sensor every 10 days. 1 box = 3 sensors. 3 Device 11 06/09/20 Active blood-glucose transmitter (DEXCOM G6 TRANSMITTER) deviceIndications: Uncontrolled type 2 diabetes mellitus with insulin therapy Will use 1 transmitter every 90 days 1 Device 3 06/09/20 Active blood-glucose meter,continuous (DEXCOM G6 SAMPLE CASE PORTER) miscIndications:Un controlled type 2 diabetes mellitus with insulin therapy One trashman 1 each 06/09/20 Active insulin aspart U-100 (NovoLOG PenFill U-100 Insulin) 100 unit/mL cartridge INJECT 6 UNITS SUBCUTANEOUSLY WITH BREAKFAST AND 20 UNITS WITH SUPPER PLUS 1:50 FOR BG>150MG/DL. TOTAL DOSE OF 60 UNITS PER DAY 18 mL 7 10/27/19 20 Active atorvastatin (LIPITOR) 80 mg tabletIndications: Type 2 diabetes mellitus with hyperglycemia, with long-term current use of insulin (HCC),ASCVD (arteriosclerotic cardiovascular disease),Mixed hyperlipidemia Take 1 tablet (80 mg total) by mouth daily 30 tablet 3 11/30/19 20 Active Additional Information Patient taking differently: 20 mgoral Daily, Reported on 06/20/2024 insulin degludec (Tresiba FlexTouch U-100) 100 unit/mL (3 mL) insulin pen INJECT 20 UNITS SUBCUTANEOUSLY ONCE DAILY 18 mL 1 01/25/20 20 Active losartan (COZAAR) 50 mg tablet Take 0.5 tablets (25 mg total) by mouth daily 03/16/20 20 Active empagliflozin-metf ormin (Synjardy XR) 10-1,000 mg tablet, IR & ER, biphasic 24hr Take by mouth daily Active ezetimibe (ZETIA) 10 mg tablet Take 1 tablet (10 mg total) by mouth daily Active omega-3/dha/epa/dp a/fish oil (OMEGA-3 2100 ORAL) Take by mouth Active acetaminophen (TYLENOL) 325 mg tablet Take 2 tablets (650 mg total) by mouth every 6 (six) hours as needed for pain Active folic acid 0.8 mg capsule Take by mouth Active brimonidine (ALPHAGAN) 0.2 % ophthalmic solution Administer 1 drop into both eyes 2 (two) times a day Active glimepiride (AMARYL) 2 mg tablet TAKE 1 TABLET BY MOUTH ONCE DAILY IN THE MORNING WITH BREAKFAST 07/17/20 Active meclizine (ANTIVERT) 25 mg tablet 07/17/20 21 Active azithromycin (ZITHROMAX) 250 mg tablet Take 2 tabs (500 mg) by mouth today, than 1 tab (250 mg) daily for 4 days. 6 tablet 06/20/20 24 Active benzonatate (TESSALON) 100 mg capsuleIndications :Cough Take 1 capsule (100 mg total) by mouth 3 (three) times a day as needed for cough 21 capsule 06/20/20 24 Active Active Problems Problem Noted Date Diagnosed Date Abnormal result of other cardiovascular function study 03/25/2020 Mixed hyperlipidemia 05/20/2018 Assessment & Plan (12/11/2018 10:02 AM CDT): Continue statin, optimize glycemic control Assessment & Plan (05/20/2018 8:40 AM CDT): Labs reviewed, and on max dose of simvastatin, will change to atorvastatin and increase to 80 mg Needs FLP and CMP 4-8 weeks in fu Essential hypertension 02/14/2018 Assessment & Plan (12/11/2018 10:01 AM CDT): Blood pressure within target, managed by other doctors. Assessment & Plan (02/14/2018 11:15 AM CDT): On ramipril. Blood pressure a little high, but managed by his PCP ASCVD (arteriosclerotic cardiovascular disease) 02/07/2018 Assessment & Plan (12/11/2018 10:01 AM CDT): Need to minimize risk of hypoglycemia Assessment & Plan (02/14/2018 11:14 AM CDT): Need to minimize risk of hypoglycemia Uncontrolled type 2 diabetes mellitus with insul in therapy 05/04/2015 Assessment & Plan (06/10/2019 1:41 PM GRAIN UNLOADER): Glucoses highly variable, he needs to get back on his Dexcom CGM on a long-term basis. He needs more insulin with his evening meal, with close monitoring. Also needs follow-up labs, most of which have been ordered by his PCP Assessment & Plan (12/11/2018 10:01 AM CDT): Needs more basal and dinnertime insulin, within a good margin of safety. We also need results of recent labs from his PCP Assessment & Plan (02/14/2018 11:14 AM CDT): Suboptimal control, needs more basal insulin and readjustment of his mealtime insulin, particularly to provide more dinnertime dosing Microalbuminuria 09/30/2014 Assessment & Plan (02/14/2018 11:14 AM CDT): On ramipril. Needs follow-up labs Tear film insufficiency 09/28/2014 Dizziness 03/30/2011 History of myocardial infarction 02/08/2011 Overview (10/31/2017): Description: Fall 2007 ? noted scar tissue, CAD on cath Pes planus 02/08/2011 Diabetic retinopathy 02/08/2011 Motion sickness 02/08/2011 Diabetic cataract (CMS/HCC) 02/08/2011 Head revolving around 02/08/2011 Encounters Date Type Department Care Team Description 06/20/2024 5:15 PM GRAIN UNLOADER Office Visit [facility] at [address] [address] Chayito Chaney PA Acute cough (Primary Dx) from Last 3 Months Immunizations Name Administration Dates Next Due Influenza, Trivalent, Preser vative Free, Intramuscular 04/23/2013,04/21/2011,04/21/2010 Surgical History Surgery Date Site/Laterality Comments KNEE SURGERY 07/22/1993 - 07/21/1994 Knee surgery CATARACT EXTRACTION 07/22/2005 - 07/21/2006 Medical History Medical History Date Comments Hx Other Medical Diabetes Type I I Cardiac murmur Murmur - (Added by TW Conv) Personal history of other in fectious and parasitic diseases History of varicella - (Adde d by TW Conv) Old myocardial infarction Past m yocardial infarction - Fall 2007 ? noted scar tissue, CAD on cath (Added by TW Conv) Diabetes mellitus (HCC) Cataracts, bilateral 2005 Family History Medical History Relation Name Comments Diabetes Brother 1 Hypertension Brother 1 Hypertension - 2 brothers (Added by TW Conv) Hypertension Brother 2 Heart failure Father Congestive Hea rt Failure; Hypertension Other Hypertension - 2 brothers (Added by TW Conv) Relation Name Status Comments Brother 1 Alive Brother 2 Alive Father (Age 73) Mother Alive Other Sister Alive Social History Tobacco Use Types Packs/Day Years Used Date Smoking Tobacco: Never Smokeless Tobacco: Never Tobacco Cessation:Counseling Given: Not Answered Alcohol Use Standard Drinks/Week Comments No 0 (1 standard drink = 0.6 oz pur e alcohol) Sex and Gender Information Value Date Recorded Sex Assigned at Not on file Legal Sex Male 1:05 AM GRAIN UNLOADER Gender Identity Not on file Sexual Orientation Not on file Obstetrics History Last Filed Vital Signs Vital Sign [place] Time Taken Comments Blood Pressure 110/57 06/20/2024 5:37 PM GRAIN UNLOADER Pulse 70 06/20/2024 5:37 PM GRAIN UNLOADER Temperature 36.8 ??C (98.3 ??F) 06/20/2024 5:37 PM CS T Respiratory Rate 18 06/20/2024 5:37 PM GRAIN UNLOADER Oxygen Saturation 98% 06/20/2024 5:37 PM GRAIN UNLOADER Inhaled Oxygen Concentration - - Weight 81.6 kg (180 lb) 06/20/2024 5:37 PM GRAIN UNLOADER Height 172.7 cm (5' 8 ) 06/20/2024 5:37 PM GRAIN UNLOADER Body Mass Index 27.37 06/20/2024 5:37 PM GRAIN UNLOADER Plan of Treatment Health Maintenance Due Date Last Done Comments Colon Cancer Screening-Colonoscopy 1955 Depression Screening 1955 Fall Risk Assessment 1955 Hepatitis C Screening 1956 Prostate Cancer Screening-PSA 1956 Dilated Eye Exam 1956 Pneumococcal vaccine 65+ (1 of 2 - PCV) 1962 DTaP/Tdap/Td Vaccine (1 - Tdap) 10/11/1967 Hepatitis B Screening 1974 Zoster Vaccine (1 of 2) 2006 eGFR 05/12/2019 05/12/2018 Foot Exam 05/20/2019 05/20/2018 Hemoglobin A1C 12/08/2019 06/09/2019, 08, 12/09/2018, Additional history exists Albumin Creatinine Ratio, Urine 06/22/2020 9 Well Visit 65+ 2021 Influenza Vaccine (#1) 2024 3, 04/21/2011, 04/21/2010 Lipid Panel 01/27/2025 01/28/2024, 07/22, 07/17/2021, Additional history exists Procedures Procedure Name Priority Date/Time Associated Diagnosis Comments POCT LIPID PANEL Routine 01/28/2024 9:01 AM CDT Lipid screening ALBUMIN CREATININE RATIO, URINE Routine 06/22/2019 11:24 AM GRAIN UNLOADER Uncontrolled type 2 diabetes mellitus with insulin therapy ([facility]/HCC) POCT HEMOGLOBIN A1C Routine 06/09/2019 8 :43 AM GRAIN UNLOADER Uncontrolled type 2 diabetes mellitus with insulin therapy ([facility]) COMPREHENSIVE METABOLIC PANEL Routine 05/12/2018 11:03 AM CDT from Last 3 Months or Most Recently Relevant to Health Maintenance Results * POCT lipid panel (01/28/2024 9:01 AM CDT) Capillary blood 01/28/2024 9 :01 AM CDT us Matthew Damico MD POINT OF CARE TEST ORDER JOVANNY Final Result * (ABNORMAL) Albumin Creatinine Ratio, Urine (06/22/2019 11:24 AM GRAIN UNLOADER) Creatinine, ur 113 20 - 320 mg/dL [facility] [place] Microalbumin, ur 9.8 See Note: mg/dL [facility] [place] Comment: Reference Range: Reference Range Not established Microalbumin/creat ratio 87(H) <30 mcg/mg creat [facility] [place] Comment: The ADA defines abnormalities in albumin excretion as follows: Category ? Result (mcg/mg creatinine) Normal ?<30 Microalbuminuria ? 30-299 Clinical albuminuria ?? > OR = 300 The ADA recommends that at least two of three specimens collected within a 3-6 month period be abnormal before considering a patient to be within a diagnostic category. Urine 06/22/2019 11:2 4 AM GRAIN UNLOADER 06/22/2019 11:26 AM GRAIN UNLOADER Narrative Resulting Agency Comment Performing Organization Information: ?Site ID: [id number] ?Name: [facility] ?Address: [address] [place] [address] ?Director: Arthur Marsh D.O., MPH us Yomaira Escalona MD LAB URINE ORDERABLES Final Result [facility] [place] * POCT hemoglobin A1c (06/09/2019 8:43 AM GRAIN UNLOADER) Hemoglobin A1C, POC 8.9 Blood specimen (specimen) 06/09/2019 8:43 AM GRAIN UNLOADER Yomaira Escalona MD POINT OF CARE TEST ORDERABL ES Final Result * (ABNORMAL) Comprehensive metabolic panel (05/12/2018 11:03 AM CDT) Glucose 429(H) 65 - 99 mg/dL [facility] [place] Comment: Verified by repeat analysis. ? Fasting reference interval For someone without known diabetes, a glucose value >125 mg/dL indicates that they may have diabetes and this should be confirmed with a follow-up test. BUN 14 7 - 25 mg/dL [facility] [place] Creatinine 1.10 0.70 - 1.25 mg/dL [facility] [place] Comment: For patients >49 years of age, the reference limit for Creatinine is approximately 13% higher for people identified as -[place]. eGFR NON-AFR. THAI 72 > OR = 60 mL/min/1 .73m2 [facility] [place] EGFR 84 > OR = 60 mL/min/1 .73m2 [facility] [place] BUN/creat ratio NOT APPLICABLE 6 - 22 (calc) [facility] [place] Sodium 136 135 - 146 mmol/L [facility] [place] Potassium, pl 4.6 3.5 - 5.3 mmol/L [facility] [place] Chloride 99 98 - 110 mmol/L [facility] [place] CO2 28 20 - 32 mmol/L [facility] [place] Calcium 9.0 8.6 - 10.3 mg/dL [facility] [place] Protein, sr 6.8 6.1 - 8.1 g/dL [facility] [place] Albumin 4.2 3.6 - 5.1 g/dL [facility] [place] GLOBULIN 2.6 1.9 - 3.7 g/dL (calc) [facility] [place] Alb/glob ratio 1.6 1.0 - 2.5 (calc) [facility] [place] Bilirubin, total 0.6 0.2 - 1.2 mg/dL [facility] [place] Alk phos 76 40 - 115 U/L [facility] [place] AST 19 10 - 35 U/L [facility] [place] ALT (SGPT) 21 9 - 46 U/L [facility] [place] 05/12/2018 11:0 3 AM CDT 05/12/2018 11:04 AM CDT Narrative [facility] - 05/13/2018 7:52 AM CDT FASTING:YES FASTING: YES Resulting Agency Comment Performing Organization Information: ?Site ID: [id number] ?Name: [facility] ?Address: [address] [place] [address] [place] [address] ?Director: Arthur Marsh D.O., MPH us Yomaira Escalona MD LAB BLOOD ORDERABLES Final Result [facility] [place] from Last 3 Months or Most Recently Relevant to Health Maintenance Insurance [facility] PR[facility] PPO [place] MEDICARE SOLUTIONS MEDICARE SOLUTIONS Care Teams Account Executive Healthcare Relationship Specialty Start Date End Date Jeramie Dempsey MD PCP - General Internal Medicine 12/09/18
--- OUTSIDE RECORDS SUMMARY | 2024-08-21 14:56 | XMS_ITS | Clinical Summary ---
Author Organization [facility] Address [address] [place] [address]. [place], [place] [id number] [place] [id number] Care Team Providers Care Timber Hewer Name Role Phone Jeramie Dempsey MD Primary Care Provider [phone] Social History Tobacco Use Types Packs/Day Years Used Date Smoking Tobacco: Never Assessed Sex and Gender Information Value Date Recorded Sex Assigned at Not on file Legal Sex Male 11:33 AM CDT Gender Identity Not on file Sexual Orientation Not on file Plan of Treatment Health Maintenance Due Date Last Done Comments Colorectal Cancer Screening Colonoscopy (10 Years) 1956 Hepatitis C 1974 DTaP, Tdap and Td Vaccines ( 1 - Tdap) 10/11/1975 Zoster Vaccines (1 of 2) 2006 Pneumococcal Vaccine: 65+ Ye ars (1 of 1 - PCV) 2021 COVID-19 Vaccine ( - 2023-2 5 season) 2024 Influenza Adult (#1) 2024 RSV Immunization or 60+ Years (1 - 1-dose 75+ series) 10/11/2031 Meningococcal B Vaccine Aged Out No l onger eligible based on patient's age to complete this topic Meningococcal Vaccine Aged Out No cristian stevenson eligible based on patient's age to complete this topic RSV Immunizations Under 20 Months Aged Out No longer eligible based on patient's age to complete this topic Insurance [facility] Care Teams Timber Hewer Relationship Specialty Start Date End Date Jeramie Dempsey MD [id number] [facility] [address] - [facility] [address] [place] [address] PCP - General INTERNAL MEDICINE 01/18/20
--- OUTSIDE RECORDS SUMMARY | 2024-08-21 14:56 | XMS_ITS | Referral Summary ---
Author Organization [facility] Medical [facility] 2 Address [address] [facility] [place] [address] Care Team Providers Care Gallery Or Museum Attendant Name Role Phone Jeramie Dempsey MD Primary Care Provider [phone] Encounters Date Type Department Care Team Description 06/20/2024 5:15 PM TOOL MACHINIST Office Visit [facility] Medical [facility] Care at [address] [address] Chayito Chaney PA Acute cough (Primary Dx) from Last 3 Months Allergies Active Allergy Reactions Criticality Noted Date [...] DAILY FOR INSULIN INJECTIONS. 100 each 10/02/19 19 Active CONTOUR NEXT TEST STRIPS strip USE 5 STRIPS TO CHECK BLOOD SUGAR DAILY 200 each 03/20/20 19 Active blood-glucose sensor (DEXCOM G6 SENSOR) deviceIndications: Uncontrolled type 2 diabetes mellitus with insulin therapy Will use 1 sensor every 10 days. 1 box = 3 sensors. 3 Device 11 06/09/20 19 Active blood-glucose transmitter (DEXCOM G6 TRANSMITTER) deviceIndications: Uncontrolled type 2 diabetes mellitus with insulin therapy Will use 1 transmitter every 90 days 1 Device 3 06/09/20 Active blood-glucose meter,continuous (DEXCOM G6 SANDER MACHINE) miscIndications:Un controlled type 2 diabetes mellitus with insulin therapy One grid inspector 1 each 06/09/20 Active insulin aspart U-100 (NovoLOG PenFill U-100 Insulin) 100 unit/mL cartridge INJECT 6 UNITS SUBCUTANEOUSLY WITH BREAKFAST AND 20 UNITS WITH SUPPER PLUS 1:50 FOR BG>150MG/DL. TOTAL DOSE OF 60 UNITS PER DAY 18 mL 7 10/27/19 Active atorvastatin (LIPITOR) 80 mg tabletIndications: Type 2 diabetes mellitus with hyperglycemia, with long-term current use of insulin (HCC),ASCVD (arteriosclerotic cardiovascular disease),Mixed hyperlipidemia Take 1 tablet (80 mg total) by mouth daily 30 tablet 3 11/30/19 Active Additional Information Patient taking differently: 20 mgoral Daily, Reported on 06/20/2024 insulin degludec (Tresiba FlexTouch U-100) 100 unit/mL (3 mL) insulin pen INJECT 20 UNITS SUBCUTANEOUSLY ONCE DAILY 18 mL 1 01/25/20 Active losartan (COZAAR) 50 mg tablet Take 0.5 tablets (25 mg total) by mouth daily 03/16/20 Active empagliflozin-metf ormin (Synjardy XR) 10-1,000 mg [...] Active meclizine (ANTIVERT) 25 mg tablet 07/17/20 Active azithromycin (ZITHROMAX) 250 mg tablet Take [...] 05/04/2015 Assessment & Plan (06/10/2019 1:41 PM TOOL MACHINIST): Glucoses highly variable, he needs to get [...] retinopathy 02/08/2011 Motion sickness 02/08/2011 Diabetic cataract ([facility]) 02/08/2011 Head revolving around 02/08/2011 Immunizations Name Administration Dates Next Due Influenza, Trivalent, Preser vative Free, Intramuscular 04/23/2013,04/21/2011,04/21/2010 Social History Tobacco Use Types Packs/Day Years Used Date Smoking Tobacco: Never Smokeless Tobacco: Never Tobacco Cessation:Counseling Given: Not Answered Alcohol Use Standard Drinks/Week Comments No 0 (1 standard drink = 0.6 oz pur e alcohol) Sex and Gender Information Value Date Recorded Sex Assigned at Not on file Legal Sex Male 1:05 AM TOOL MACHINIST Gender Identity Not on file Sexual Orientation Not on file Last Filed Vital Signs Vital Sign [place] Time Taken Comments Blood Pressure 110/57 06/20/2024 5:37 PM TOOL MACHINIST Pulse 70 06/20/2024 5:37 PM TOOL MACHINIST Temperature 36.8 ??C (98.3 ??F) 06/20/2024 5:37 PM CS T Respiratory Rate 18 06/20/2024 5:37 PM TOOL MACHINIST Oxygen Saturation 98% 06/20/2024 5:37 PM TOOL MACHINIST Inhaled Oxygen Concentration - - Weight 81.6 kg (180 lb) 06/20/2024 5:37 PM TOOL MACHINIST Height 172.7 cm (5' 8 ) 06/20/2024 5:37 PM TOOL MACHINIST Body Mass Index 27.37 06/20/2024 5:37 PM TOOL MACHINIST Plan of Treatment Not on file Procedures Procedure Name Priority Date/Time Associated Diagnosis Comments POCT LIPID PANEL Routine 01/28/2024 9:01 AM CDT Lipid screening ALBUMIN CREATININE RATIO, URINE Routine 06/22/2019 11:24 AM TOOL MACHINIST Uncontrolled type 2 diabetes mellitus with insulin therapy (CMS/HCC) POCT HEMOGLOBIN A1C Routine 06/09/2019 8 :43 AM TOOL MACHINIST Uncontrolled type 2 diabetes mellitus with insulin therapy (CMS/[facility]) COMPREHENSIVE METABOLIC PANEL Routine 05/12/2018 11:03 AM CDT from Last 3 Months or Most Recently Relevant to Health Maintenance Results * POCT lipid panel (01/28/2024 9:01 AM CDT) Capillary blood 01/28/2024 9 :01 AM CDT Matthew Damico MD POINT OF CARE TEST ORDER JOVANNY Final Result * (ABNORMAL) Albumin Creatinine Ratio, Urine (06/22/2019 11:24 AM TOOL MACHINIST) Creatinine, ur 113 20 - 320 mg/dL [facility] [place] Microalbumin, ur 9.8 See Note: mg/dL [facility] [place] Comment: Reference Range: Reference Range Not established Microalbumin/creat ratio 87(H) <30 mcg/mg creat [facility] [place] Comment: The ADA defines abnormalities in albumin excretion as follows: Category ? Result (mcg/mg creatinine) Normal ?<30 Microalbuminuria ? 30-299 Clinical albuminuria ?? > OR = 300 The ADA recommends that at least two of three specimens collected within a 3-6 month period be abnormal before considering a patient to be within a diagnostic category. Urine 06/22/2019 11:2 4 AM TOOL MACHINIST 06/22/2019 11:26 AM TOOL MACHINIST Narrative Resulting Agency Comment Performing Organization Information: ?Site ID: [id number] ?Name: [facility] ?Address: [address] [place] [address] ?Director: Arthur Marsh D.O., MPH Yomaira Escalona MD LAB URINE ORDERABLES Final Result [facility] [place] * POCT hemoglobin A1c (06/09/2019 8:43 AM TOOL MACHINIST) Hemoglobin A1C, POC 8.9 Blood specimen (specimen) 06/09/2019 8:43 AM TOOL MACHINIST Yomaira Escalona MD POINT OF CARE TEST [...] approximately 13% higher for people identified as -[place]er. eGFR NON-AFR. ANGOLAN 72 > OR = 60 mL/min/1 .73m2 [...] Organization Information: ?Site ID: [id number] ?Name: [facility] ?Address: [address] [place] [address] [place] [address] ?Director: Arthur Marsh D.O., BRADY Yomaira Escalona MD LAB BLOOD ORDERABLES Final Result [facility] [place] from Last 3 Months or Most Recently Relevant to Health Maintenance Insurance [facility] PPO [place] MEDICARE SOLUTIONS MEDICARE SOLUTIONS Care Teams Gallery Or Museum Attendant Relationship Specialty Start Date End Date Jeramie Dempsey MD PCP - General Internal Medicine 12/09/18
--- OUTSIDE RECORDS SUMMARY | 2024-08-21 14:56 | XMS_ITS | Continuity of Care Document ---
Author Organization [facility] Address [address] [place] [address] Dr Sanderson [address] [place] [id number] Phone Care Team Providers Care Actimize Architect Name Role Phone Pan Brownlee Unavailable Unavailable [...] Diagnoses Date Provider Providers Copied on Encounter [facility], [address] [place] [address] [address], [place], [place], [id number], [place] tel:[phone] [facility] No Information Kem Perla. [address] [place], [address], [place]. tel:[phone] Referring Provider: Pan Tran, [address] [place], [address]. tel:[phone] [facility], [address], [place], [place], [id number], [place] tel:[phone] [facility] No Information Kem Perla. [address] [place], [address], [place]. tel:[phone] Referring Provider: Pan Tran, [address] [place], [address]. tel:[phone] [facility] [place] [facility], [address], [place], [place], [id number], [place] tel:[phone] [facility] No Information Kem Perla. [address] [place], [address], [place]. tel:[phone] Referring Provider: Pan Tran, [address] [place], [address]. tel:[phone] [facility], [address], [place], [place], [id number], [place] tel:[phone] [facility] No Information Kem Perla. [address] [place], [address], [place]. tel: [phone] [facility], [address], [place], [place], [id number], [place] tel:[phone] [facility] No Information Kem Perla. [address] [place], [address], [place]. tel: [phone] Referring Provider: Pan Tran, [address] [place], [address]. tel:[phone] [facility], [address], [place], [place], [address], [place] tel:[phone] [facility] No Information Kem Perla. [address] [place], [address], [place]. tel: [phone] [facility], [address], [place], [place], [id number], [place] tel:[phone] [facility] No Information Kem Perla. [address] [place], [address], [place]. tel: [phone] Referring Provider: Pan Tran, [address] [place], [address]. tel:[phone] [facility], [address], [place], [place], [id number], [place] tel:[phone] [facility] No Information Kem Perla. [address] [place], [address], [place]. tel: [phone] Referring Provider: Pan Tran, [address] [place], [address]. tel:[phone] [facility], [address], [place], [place], [id number], [place] tel:[phone] [facility] No Information Kem Perla. [address] [place], [address], [place]. tel:[phone] [facility], [address] [place] [address] [address], [place], [place], [id number], [place] tel:[phone] [facility] No Information Kem Perla. [address] [place], [address], [place]. tel:[phone] Referring Provider: Pan Tran, [address] [place], [address]. tel:[phone] [facility], [address] [place] [address] [address], [place], [place], [id number], [place] tel:[phone] [facility] No Information Kme Perla. [address] [place], [address], [place]. tel:[phone] Referring Provider: Pan Tran, [address] [place], [address]. tel:[phone] [facility], [address], [place], [place], [id number], [place] tel:[phone] [facility] No Information Kem Perla. [address] [place], [address], [place]. tel:[phone] Referring Provider: Pan Tran, [address] [place], [address]. tel:[phone] [facility], [address], [place], [place], [address], [place] tel:[phone] [facility] No Information Kem Perla. [address] [place], [address], [place]. tel:[phone] Referring Provider: Pan Tran, [address] [place], [address]. tel:[phone] [facility], [address], [place], [place], [id number], [place] tel:[phone] [facility] No Information Kem Perla. [address] [place], [address], [place]. tel:[phone] Referring Provider: Pan Tran, [address] [place], [address]. tel:[phone] [facility], [address], [place], [place], [id number], [place] tel:[phone] [facility] No Information Kem Perla. [address] [place], [address], [place]. tel:[phone] Referring Provider: Pan Tran, [address] [place], [address]. tel:[phone] [facility], [address], [place], [place], [id number], [place] tel:[phone] [facility] No Information Kem Perla. [address] [place], [address], [place]. tel:[phone] Referring Provider: Pan Tran, [address] [place], [address]. tel:[phone] [facility], [address], [place], [place], [address], [place] tel:[phone] [facility] No Information Kem Perla. [address] [place], [address], [place]. [phone] [facility], [address], [place], [place], [id number], [place] tel:[phone] [facility] No Information Kem Perla. [address] [place], [address], [place]. [phone] Referring Provider: Pan Tran, [address] [place], [address]. tel:[phone] [facility], [address], [place], [place], [id number], [place] tel:[phone] [facility] No Information Kem Perla. [address], [place], [facility], [place]. [phone] Referring Provider: Pan Tran, [address] [place], [address]. tel:[phone] [facility], [address], [place], [place], [address], [place] tel:[phone] [facility] No Information Kem Perla. [address], [place], [facility], [place]. [phone] [facility], [address], [place], [place], [id number], [place] tel:[phone] [facility] No Information Kem Perla. [address] [place], [address], [place]. tel:[phone] [facility], [address], [place], [place], [address], [place] tel:[phone] [facility] No Information Kem Perla. [address] [place], [address], [place]. tel:[phone] [facility], [address], [place], [place], [address], [place] tel:[phone] [facility] No Information Kem Perla. [address] [place], [address], [place]. tel:[phone] Referring Provider: Juan J Mcleod OD, [address] [place], [address]. tel:[phone] Family History Family Member Type Diagnosis Age [...]
== END 2024-08-21 14:52 | disposition home or self-care (01) ==
PROVIDERS: PCP Internal Medicine; Visit Provider Internal Medicine
DX: R91.1 Solitary pulmonary nodule (principal)
CPT/HCPCS: 71250

== ENCOUNTER 2024-09-17 11:10 | Outpatient (CLI) | payer MEDICARE, SELFPAY ==
[2024-09-17 13:34] LABS: Influenza A QL RT-PCR Negative (Negative); Influenza B QL RT-PCR Negative (Negative); RSV RNA, RT-PCR Negative (Negative); SARS-CoV-2 RNA PCR Negative (Negative)
== END 2024-09-17 11:11 | disposition home or self-care (01) ==
LOC: ANHLAB 11:11
PROVIDERS: PCP Internal Medicine; Visit Provider Internal Medicine
DX: R50.9 Fever, unspecified (principal); Z20.822 Contact with and (suspected) exposure to COVID-19
CPT/HCPCS: 87637

== ENCOUNTER 2024-10-27 15:01 | Outpatient (CLI) | payer MEDICARE, SELFPAY ==
--- NOTE | ~2024-10-27 | XR_ITS ---
EXAM/PROCEDURE: XR chest 2V - 10/27/2024 15:12 CDT HISTORY: 69 years old Male with R05.3 - Chronic cough TECHNIQUE: Two view(s) of the chest. COMPARISON: 08/21/2024 and 07/20/2024 FINDINGS: LUNGS/ PLEURA: No focal consolidation. No appreciable pneumothorax or large pleural effusion. HEART/ MEDIASTINUM: Heart appears normal in size. BONES: Degenerative changes. OTHER: Visualized upper abdomen is unremarkable. IMPRESSION: No acute process. Reviewed, dictated and finalized at location A. IMPRESSION: No acute process.
--- OUTSIDE RECORDS SUMMARY | 2024-10-27 16:29 | XMS_ITS | Referral Summary ---
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 each 06/09/20 Active insulin aspart U-100 [...] 05/04/2015 Assessment & Plan (06/10/2019 1:41 PM SUPERVISOR PIPE JOINTS): Glucoses highly variable, he needs to get [...] retinopathy 02/08/2011 Motion sickness 02/08/2011 Diabetic cataract 02/08/2011 Head revolving around 02/08/2011 Immunizations Immunization Administration Dates Next Due Influenza, Trivalent, Preser [...] on file Legal Sex Male 1:05 AM SUPERVISOR PIPE JOINTS Gender Identity Not on file Sexual Orientation Not on file Last Filed Vital Signs Vital Sign Reading Time Taken Comments Blood Pressure 110/57 06/20/2024 5:37 PM SUPERVISOR PIPE JOINTS Pulse 70 06/20/2024 5:37 PM SUPERVISOR PIPE JOINTS Temperature 36.8 C (98.3 F) 06/20/2024 5:37 PM SUPERVISOR PIPE JOINTS Respiratory Rate 18 06/20/2024 5:37 PM SUPERVISOR PIPE JOINTS Oxygen Saturation 98% 06/20/2024 5:37 PM SUPERVISOR PIPE JOINTS Inhaled Oxygen Concentration - - Weight 81.6 kg (180 lb) 06/20/2024 5:37 PM SUPERVISOR PIPE JOINTS Height 172.7 cm (5' 8 ) 06/20/2024 5:37 PM SUPERVISOR PIPE JOINTS Body Mass Index 27.37 06/20/2024 5:37 PM SUPERVISOR PIPE JOINTS Plan of Treatment Not on file Procedures Procedure Name Priority Date/Time Associated Diagnosis Comments POCT LIPID PANEL Routine 01/28/2024 9:01 AM CDT Lipid screening ALBUMIN CREATININE RATIO, URINE Routine 06/22/2019 11:24 AM SUPERVISOR PIPE JOINTS Uncontrolled type 2 diabetes mellitus with insulin therapy ([facility]) POCT HEMOGLOBIN A1C Routine 06/09/2019 8 :43 AM SUPERVISOR PIPE JOINTS Uncontrolled type 2 diabetes mellitus with insulin therapy ([facility]) COMPREHENSIVE METABOLIC PANEL Routine 05/12/2018 11:03 AM CDT from Last 3 Months or Most Recently Relevant to Health Maintenance Results * POCT lipid panel (01/28/2024 9:01 AM CDT) Capillary blood 01/28/2024 9 :01 AM CDT us Matthew Damico MD POINT OF CARE TEST ORDER JOVANNY Final Result * (ABNORMAL) Albumin Creatinine Ratio, Urine (06/22/2019 11:24 AM SUPERVISOR PIPE JOINTS) Creatinine, ur 113 20 - 320 mg/dL [facility] Microalbumin, ur 9.8 See Note: mg/dL [facility] [place] Comment: Reference Range: Reference Range Not established Microalbumin/creat ratio 87(H) <30 mcg/mg creat [facility] - [place] Comment: The ADA defines abnormalities in albumin excretion as follows: Category Result (mcg/mg creatinine) Normal <30 Microalbuminuria 30-299 Clinical albuminuria > OR = 300 The ADA recommends that at least two of three specimens collected within a 3-6 month period be abnormal before considering a patient to be within a diagnostic category. Urine 06/22/2019 11:2 4 AM SUPERVISOR PIPE JOINTS 06/22/2019 11:26 AM SUPERVISOR PIPE JOINTS Narrative Resulting Agency Comment Performing Organization Information: Site ID: [email or web address] Name: [email or web address] Address: [address] [address] Director: Arthur Marsh D.O., MPH us Yomaira Escalona MD LAB URINE ORDERABLES Final Result [facility] * POCT hemoglobin A1c (06/09/2019 8:43 AM SUPERVISOR PIPE JOINTS) Hemoglobin A1C, POC 8.9 Blood specimen (specimen) 06/09/2019 8:43 AM SUPERVISOR PIPE JOINTS us Yomaira Escalona MD POINT OF CARE TEST ORDERABL ES Final Result * (ABNORMAL) Comprehensive metabolic panel (05/12/2018 11:03 AM CDT) Glucose 429(H) 65 - 99 mg/dL [facility] [place] Comment: Verified by repeat analysis. Fasting reference interval For someone without known [...] approximately 13% higher for people identified as -Finnish. eGFR NON-AFR. MACEDONIAN 72 > OR = 60 mL/min/1 .73m2 [facility] [place] EGFR 84 > OR = 60 mL/min/1 .73m2 [facility] [place] BUN/creat ratio NOT APPLICABLE 6 - (calc) [facility] [place] Sodium 136 [...] YES Resulting Agency Comment Performing Organization Information: Site ID: [id number] Name: [facility] Address: [address] [address] Director: Arthur Marsh D.O., MPH Yomaira Escalona MD LAB BLOOD ORDERABLES Final Result [facility] from Last 3 Months or Most Recently Relevant to Health Maintenance Insurance [facility] MEDICARE ADVANTAGE [facility] MEDICARE Address: [address] [address] [place] [address] [facility] MEDICARE ADVANTAGE [facility] MEDICARE Address: [address] [address] Care Teams Hearing Screener Relationship Specialty Start Date End Date Jeramie Dempsey MD PCP - General Internal Medicine 12/09/18
--- OUTSIDE RECORDS SUMMARY | 2024-10-27 16:29 | XMS_ITS | Clinical Summary ---
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 06/09/20 Active insulin aspart U-100 [...] 05/04/2015 Assessment & Plan (06/10/2019 1:41 PM VALVE STEAMER): Glucoses highly variable, he needs to get [...] on file Legal Sex Male 1:05 AM VALVE STEAMER Gender Identity Not on file Sexual Orientation Not on file Obstetrics History Last Filed Vital Signs Vital Sign Reading Time Taken Comments Blood Pressure 110/57 06/20/2024 5:37 PM VALVE STEAMER Pulse 70 06/20/2024 5:37 PM VALVE STEAMER Temperature 36.8 C (98.3 F) 06/20/2024 5:37 PM VALVE STEAMER Respiratory Rate 18 06/20/2024 5:37 PM VALVE STEAMER Oxygen Saturation 98% 06/20/2024 5:37 PM VALVE STEAMER Inhaled Oxygen Concentration - - Weight 81.6 kg (180 lb) 06/20/2024 5:37 PM VALVE STEAMER Height 172.7 cm (5' 8 ) 06/20/2024 5:37 PM VALVE STEAMER Body Mass Index 27.37 06/20/2024 5:37 PM VALVE STEAMER Plan of Treatment Health Maintenance Due Date Last Done Comments Colon Cancer Screening-Colonoscopy 1955 Depression Screening 1956 Fall Risk Assessment 1955 Hepatitis C Screening 1955 Prostate Cancer Screening-PSA 1956 Dilated Eye Exam 1956 DTaP/Tdap/Td Vaccine (1 - Tdap) 10/11/1967 Hepatitis B Screening 1974 Pneumococcal vaccine 65+ (1 of 2 - PCV) 10/11/1975 Zoster Vaccine (1 of 2) 2006 eGFR 05/12/2019 05/12/2018 Foot Exam 05/20/2019 05/20/2018 Hemoglobin A1C 12/08/2019 06/09/2019, 02/20, 12/09/2018, Additional history exists Albumin Creatinine Ratio, Urine 06/22/2020 9 Well Visit 65+ 2021 Influenza Vaccine (#1) 2024 3, 04/21/2011, 04/21/2010 Lipid Panel 01/27/2025 01/28/2024, 07/22, 07/17/2021, Additional history exists Procedures Procedure Name Priority Date/Time Associated Diagnosis Comments POCT LIPID PANEL Routine 01/28/2024 9:01 AM CDT Lipid screening ALBUMIN CREATININE RATIO, URINE Routine 06/22/2019 11:24 AM VALVE STEAMER Uncontrolled type 2 diabetes mellitus with insulin therapy (CMS/HCC) POCT HEMOGLOBIN A1C Routine 06/09/2019 8 :43 AM VALVE STEAMER Uncontrolled type 2 diabetes mellitus with insulin therapy (CMS/HCC) COMPREHENSIVE METABOLIC PANEL Routine 05/12/2018 11:03 AM CDT from Last 3 Months or Most Recently Relevant to Health Maintenance Results * POCT lipid panel (01/28/2024 9:01 AM CDT) Capillary blood 01/28/2024 9 :01 AM CDT Matthew Damico MD POINT OF CARE TEST ORDER JOVANNY Final Result * (ABNORMAL) Albumin Creatinine Ratio, Urine (06/22/2019 11:24 AM VALVE STEAMER) Creatinine, ur 113 20 - 320 mg/dL [facility] [place] Microalbumin, ur 9.8 See Note: mg/dL [facility] [place] Comment: Reference Range: Reference Range Not established Microalbumin/creat ratio 87(H) <30 mcg/mg creat [facility] [place] Comment: The ADA defines abnormalities in albumin excretion as follows: Category Result (mcg/mg creatinine) Normal <30 Microalbuminuria 30-299 Clinical albuminuria > OR = 300 The ADA recommends that at least two of three specimens collected within a 3-6 month period be abnormal before considering a patient to be within a diagnostic category. Urine 06/22/2019 11:2 4 AM VALVE STEAMER 06/22/2019 11:26 AM VALVE STEAMER Narrative Resulting Agency Comment Performing Organization Information: Site ID: [place] Name: [facility] Address: [address] [place] [id number] Director: Arthur Marsh D.O., MPH us Yomaira Escalona MD LAB URINE ORDERABLES Final Result [facility] [place], [place] * POCT hemoglobin A1c (06/09/2019 8:43 AM VALVE STEAMER) Hemoglobin A1C, POC 8.9 Blood specimen (specimen) 06/09/2019 8:43 AM VALVE STEAMER Yomaira Escalona MD POINT OF CARE TEST ORDERABL ES Final Result * (ABNORMAL) Comprehensive metabolic panel (05/12/2018 11:03 AM CDT) Glucose 429(H) 65 - 99 mg/dL [facility] [place] Comment: Verified by repeat analysis. Fasting reference interval For someone without known diabetes, a glucose value >125 mg/dL indicates that they may have diabetes and this should be confirmed with a follow-up test. BUN 14 7 - 25 mg/dL [facility] [place] Creatinine 1.10 0.70 - 1.25 mg/dL [facility] [place] Comment: For patients >49 years of age, the reference limit for Creatinine is approximately 13% higher for people identified as -Djiboutian. eGFR NON-AFR. MARTINIQUAIS 72 > OR = 60 mL/min/1 .73m2 [facility] [place] EGFR 84 > OR = 60 mL/min/1 .73m2 [facility] [place] BUN/creat ratio NOT APPLICABLE (calc) [facility] [place] Sodium 136 135 - 146 mmol/L [facility] [place] Potassium, pl 4.6 3.5 - 5.3 mmol/L [facility] [place] Chloride 99 98 - 110 mmol/L [facility] [place] CO2 28 20 - 32 mmol/L [facility] [place] Calcium 9.0 8.6 - 10.3 mg/dL [facility] [place] Protein, sr 6.8 6.1 - 8.1 g/dL [facility] [place] Albumin 4.2 3.6 - 5.1 g/dL [facility] [place] GLOBULIN 2.6 1.9 - 3.7 g/dL (calc) [facility] [place] Alb/glob ratio 1.6 1.0 - 2.5 (calc) [facility] [place] Bilirubin, total 0.6 0.2 - 1.2 mg/dL [facility] [place] Alk phos 76 40 - 115 U/L [facility] [place] AST 19 10 - 35 U/L [facility] [place] ALT (SGPT) 21 9 - 46 U/L [facility] [place] 05/12/2018 11:0 3 AM CDT 05/12/2018 11:04 AM CDT Narrative [facility] - 05/13/2018 7:52 AM CDT FASTING:YES FASTING: YES Resulting Agency Comment Performing Organization Information: Site ID: [place] Name: [facility] Address: [address] [place] [address] Director: Arthur Marsh D.O., MPH Yomaira Escalona MD LAB BLOOD ORDERABLES Final Result [facility] [place] from Last 3 Months or Most Recently Relevant to Health Maintenance Insurance [employer] [place] [facility] MEDICARE ADVANTAGE [facility] MEDICARE ADVANTAGE Care Teams Route Jumper Relationship Specialty Start Date End Date Jeramie Dempsey MD PCP - General Internal Medicine 12/09/18
--- OUTSIDE RECORDS SUMMARY | 2024-10-27 16:29 | XMS_ITS | Continuity of Care Document ---
Author Organization [employer] [facility] Address [address] [place] [address] Dr Sand[address] [place] [phone] Phone Care Team Providers Care Biodiesel Production Technician Name Role Phone Pan Brownlee Unavailable Unavailable [...] Diagnoses Date Provider Providers Copied on Encounter [facility], [address] [place] [address] [address], [place], [place], [id number], [place] tel:[phone] [facility] No Information Kem Perla. [address] [place], [address], [place]. tel:[phone] Referring Provider: Pan Tran, [address] [place], [address]. tel:[phone] [facility], [address], [place], [place], [address], [place] tel:[phone] [facility] No Information Kem Perla. [address] [place], [address], [place]. tel:[phone] Referring Provider: Pan Tran, [address] [place], [address]. tel:[phone] [facility], [address] [facility] [address], [place], [place], [id number], [place] tel:[phone] [facility] No Information Kem Perla. [address] [place], [address], [place]. tel:[phone] Referring Provider: Pan Tran, [address] [place], [address]. tel:[phone] [facility], [address], [place], [place], [address], [place] tel:[phone] [facility] No Information Kem Perla. [address] [place], [address], [place]. tel: [phone] [facility], [address], [place], [place], [address], [place] tel:[phone] [facility] No Information Kem Perla. [address] [place], [address], [place]. tel: [phone] Referring Provider: Pan Tran, [address] [place], [address]. tel:[phone] [facility], [address], [place], [place], [address], [place] tel:[phone] [facility] No Information Kem Perla. [address] [place], [address], [place]. tel: [phone] [facility], [address], [place], [place], [address], [place] tel:[phone] [facility] No Information Kem Perla. [address] [place], [address], [place]. tel: [phone] Referring Provider: Pan Tran, [address] [place], [address]. tel:[phone] [facility], [address], [place], [place], [address], [place] tel:[phone] [facility] No Information Kem Perla. [address] [place], [address], [place]. tel: [phone] Referring Provider: Pan Tran, [address] [place], [address]. tel:[phone] [facility], [address], [place], [place], [address], [place] tel:[phone] [facility] No Information Kem Perla. [address] [place], [address], [place]. tel:[phone] [facility], [address] [place] [address] [address], [place], [place], [address], [place] tel:[phone] [facility] No Information Kem Perla. [address] [place], [address], [place]. tel:[phone] Referring Provider: Pan Tran, [address] [place], [address]. tel:[phone] [facility], [address] [place] [address] [address], [place], [place], [address], [place] tel:[phone] [facility] No Information Kem Perla. [address] [place], [address], [place]. tel:[phone] Referring Provider: Pan Tran, [address] [place], [address]. tel:[phone] [facility], [address], [place], [place], [address], [place] tel:[phone] [facility] No Information Kem Perla. [address] [place], [address], [place]. tel:[phone] Referring Provider: Pan Tran, [address] [place], [address]. tel:[phone] [facility], [address], [place], [place], [address], [place] tel:[phone] [facility] No Information Kem Perla. [address] [place], [address], [place]. tel:[phone] Referring Provider: Pan Tran, [address] [place], [address]. tel:[phone] [facility], [address], [place], [place], [address], [place] tel:[phone] [facility] No Information Kem Perla. [address] [place], [address], [place]. tel:[phone] Referring Provider: Pan Tran, [address] [place], [address]. tel:[phone] [facility], [address], [place], [place], [address], [place] tel:[phone] [facility] No Information Kem Perla. [address] [place], [address], [place]. tel:[phone] Referring Provider: Pan Tran, [address] [place], [address]. tel:[phone] [facility], [address], [place], [place], [address], [place] tel:[phone] [facility] No Information Kem Perla. [address] [place], [address], [place]. tel:[phone] Referring Provider: Pan Tran, [address] [place], [address]. tel:[phone] [facility], [address], [place], [place], [address], [place] tel:[phone] [facility] No Information Kem Perla. [address] [place], [address], [place]. [phone] [facility], [address], [place], [place], [address], [place] tel:[phone] [facility] No Information Kem Perla. [address] [place], [address], [place]. [phone] Referring Provider: Pan Tran, [address] [place], [address]. tel:[phone] [facility], [address], [place], [place], [address], [place] tel:[phone] [facility] No Information Kem Perla. [address] [place], [facility], [place]. [phone] Referring Provider: Pan Tran, [address] [place], [address]. tel:[phone] [facility], [address], [place], [place], [address], [place] tel:[phone] [facility] No Information Kem Perla. [address] [place], [facility], [place]. [phone] [facility], [address], [place], [place], [address], [place] tel:[phone] [facility] No Information Kem Perla. [address] [place], [address], [place]. tel:[phone] [facility], [address], [place], [place], [address], [place] tel:[phone] [facility] No Information Kem Perla. [address] [place], [address], [place]. tel:[phone] [facility], [address], [place], [place], [address], [place] tel:[phone] [facility] No Information Kem Perla. [address] [place], [address], [place]. tel:[phone] Referring Provider: Juan J Mcleod OD, [address] [place], [address]. tel:[phone] Family History Family Member Type Diagnosis Age At Onset No Information Payers Payer name Insurance type Covered green party ID Authoriza tion(s) No Information Social [...]
--- OUTSIDE RECORDS SUMMARY | 2024-10-27 16:29 | XMS_ITS | Clinical Summary ---
Author Organization [facility] Address [address] [place] [address] Care Team Providers Care Activities Volunteer Name Role Phone Jeramie Dempsey MD Primary Care Provider [phone] Social History Tobacco Use Types Packs/Day Years [...] Vaccine ( - 2023-2 5 season) 2024 RSV Immunization or 60+ Years (1 [...] patient's age to complete this topic Insurance [facility] Care Teams Activities Volunteer Relationship Specialty Start Date End Date Jeramie Dempsey MD [address] - [facility] [address] [place] [address] PCP - General INTERNAL MEDICINE 01/18/20
== END 2024-10-27 15:02 | disposition home or self-care (01) ==
PROVIDERS: PCP Internal Medicine; Visit Provider Internal Medicine
DX: R05.3 Chronic cough (principal)
CPT/HCPCS: 71046

== ENCOUNTER 2024-10-29 08:10 | Outpatient (CLI) | payer MEDICARE, SELFPAY ==
--- OUTSIDE RECORDS SUMMARY | 2024-10-29 08:14 | XMS_ITS | Continuity of Care Document ---
Author Organization [facility] Address [address] [place] [address] Dr Sand[address] [place] [address] Phone Care Team Providers Care Shotweld Operator Name Role Phone Pan Brownlee Unavailable Unavailable [...] Diagnoses Date Provider Providers Copied on Encounter [facility], [address] [place] [address] [address], [place], [place], [address], [place] tel:[phone] [facility] No Information Kem Perla. [address] [place], [address], [place]. tel:[phone] Referring Provider: Pan Tran, [address] [place], [address]. tel:[phone] [facility], [address], [place], [place], [address], [place] tel:[phone] [facility] No Information Kem Perla. [address] [place], [address], [place]. tel:[phone] Referring Provider: Pan Tran, [address] [place], [address]. tel:[phone] [facility], [address] [facility] [address], [place], [place], [address], [place] tel:[phone] [facility] No Information Kem Perla. [address] [place], [address], [place]. tel:[phone] Referring Provider: Pan Tran, [address] [place], [address]. tel:[phone] [facility], [address], [place], [place], [address], [place] tel:[phone] [facility] No Information Kem Perla. [address] [place], [address], [place]. tel: [phone] [facility], [address], [place], [place], [address], [place] tel:[phone] [facility] No Information Kem Perla. [address] [place], [address], [place]. tel: [phone] Referring Provider: Pan Tran, [address] [place], [address]. tel:[phone] [facility], [address], [place], [place], [address], [place] tel:[phone] [facility] No Information Kem Perla. [address] [place], [address], [place]. tel: [phone] [facility], [address], [place], [place], [address], [place] tel:[phone] [facility] No Information Kem Perla. [address] [place], [address], [place]. tel: [phone] Referring Provider: Pan Tran, [address] [place], [address]. tel:[phone] [facility], [address], [place], [place], [address], [place] tel:[phone] [facility] No Information Kem Perla. [address] [place], [address], [place]. tel: [phone] Referring Provider: Pan Tran, [address] [place], [address]. tel:[phone] [facility], [address], [place], [place], [address], [place] tel:[phone] [facility] No Information Kem Perla. [address] [place], [address], [place]. tel:[phone] [facility], [address] [place] [address] [address], [place], [place], [address], [place] tel:[phone] [facility] No Information Kem Perla. [address] [place], [address], [place]. tel:[phone] Referring Provider: Pan Tran, [address] [place], [address]. tel:[phone] [facility], [address] [place] [address] [address], [place], [place], [address], [place] tel:[phone] [facility] No Information Kem Perla. [address] [place], [address], [place]. tel:[phone] Referring Provider: Pan Tran, [address] [place], [address]. tel:[phone] [facility], [address], [place], [place], [address], [place] tel:[phone] [facility] No Information Kem Perla. [address] [place], [address], [place]. tel:[phone] Referring Provider: Pan Tran, [address] [place], [address]. tel:[phone] [facility], [address], [place], [place], [address], [place] tel:[phone] [facility] No Information Kem Perla. [address] [place], [address], [place]. tel:[phone] Referring Provider: Pan Tran, [address] [place], [address]. tel:[phone] [facility], [address], [place], [place], [address], [place] tel:[phone] [facility] No Information Kem Perla. [address] [place], [address], [place]. tel:[phone] Referring Provider: Pan Tran, [address] [place], [address]. tel:[phone] [facility], [address], [place], [place], [address], [place] tel:[phone] [facility] No Information Kem Perla. [address] [place], [address], [place]. tel:[phone] Referring Provider: Pan Tran, [address] [place], [address]. tel:[phone] [facility], [address], [place], [place], [address], [place] tel:[phone] [facility] No Information Kem Perla. [address] [place], [address], [place]. tel:[phone] Referring Provider: Pan Tran, [address] [place], [address]. tel:[phone] [facility], [address], [place], [place], [address], [place] tel:[phone] [facility] No Information Kem Perla. [address] [place], [address], [place]. [phone] [facility], [address], [place], [place], [address], [place] tel:[phone] [facility] No Information Kem Perla. [address] [place], [address], [place]. [phone] Referring Provider: Pan Tran, [address] [place], [address]. tel:[phone] [facility], [address], [place], [place], [address], [place] tel:[phone] [facility] No Information Kem Perla. [address] [place], [place], [facility], [place]. [phone] Referring Provider: Pan Tran, [address] [place], [address]. tel:[phone] [facility], [address], [place], [place], [address], [place] tel:[phone] [facility] No Information Kem Perla. [address] [place], [place], [facility], [place]. [phone] [facility], [address], [place], [place], [address], [place] tel:[phone] [facility] No Information Kem Perla. [address] [place], [address], [place]. tel:[phone] [facility], [address], [place], [place], [address], [place] tel:[phone] [facility] No Information Kem Perla. [address] [place], [address], [place]. tel:[phone] [facility], [address], [place], [place], [address], [place] tel:[phone] [facility] No Information Kem Perla. [address] [place], [address], [place]. tel:[phone] Referring Provider: Juan J Mcleod OD, [address] [place], [address]. tel:[phone] Family History Family Member Type Diagnosis Age [...]
--- OUTSIDE RECORDS SUMMARY | 2024-10-29 08:14 | XMS_ITS | Clinical Summary ---
Author Organization [facility] Address [address] [place] [address] Care Team Providers Care Accounting Recruiter Name Role Phone Jeramie Dempsey MD Primary Care Provider [phone] Social History Tobacco Use Types Packs/Day Years [...] patient's age to complete this topic Insurance [facility] Care Teams Accounting Recruiter Relationship Specialty Start Date End Date Jeramie Dempsey MD [address] - [facility] [address] [place] [address] PCP - General INTERNAL MEDICINE 01/18/20
--- OUTSIDE RECORDS SUMMARY | 2024-10-29 08:15 | XMS_ITS | Clinical Summary ---
Author Organization [facility] Address [address] [facility] [place] [address] Care Team Providers Care Repair Operator Name Role Phone Jeramie Dempsey MD Primary Care Provider [phone] Allergies Active Allergy Reactions Criticality Noted Date [...] 3 06/09/20 Active blood-glucose meter,continuous (DEXCOM G6 BRIM IRONER HAND) miscIndications:Un controlled type 2 diabetes mellitus with insulin therapy One gear room keeper 1 each 06/09/20 Active insulin aspart U-100 [...] 05/04/2015 Assessment & Plan (06/10/2019 1:41 PM METAL CNC OPERATOR): Glucoses highly variable, he needs to get [...] on file Legal Sex Male 1:05 AM METAL CNC OPERATOR Gender Identity Not on file Sexual Orientation Not on file Obstetrics History Last Filed Vital Signs Vital Sign Reading Time Taken Comments Blood Pressure 110/57 06/20/2024 5:37 PM METAL CNC OPERATOR Pulse 70 06/20/2024 5:37 PM METAL CNC OPERATOR Temperature 36.8 C (98.3 F) 06/20/2024 5:37 PM METAL CNC OPERATOR Respiratory Rate 18 06/20/2024 5:37 PM METAL CNC OPERATOR Oxygen Saturation 98% 06/20/2024 5:37 PM METAL CNC OPERATOR Inhaled Oxygen Concentration - - Weight 81.6 kg (180 lb) 06/20/2024 5:37 PM METAL CNC OPERATOR Height 172.7 cm (5' 8 ) 06/20/2024 5:37 PM METAL CNC OPERATOR Body Mass Index 27.37 06/20/2024 5:37 PM METAL CNC OPERATOR Plan of Treatment Health Maintenance Due Date [...] CREATININE RATIO, URINE Routine 06/22/2019 11:24 AM METAL CNC OPERATOR Uncontrolled type 2 diabetes mellitus with insulin therapy (CMS/HCC) POCT HEMOGLOBIN A1C Routine 06/09/2019 8 :43 AM METAL CNC OPERATOR Uncontrolled type 2 diabetes mellitus with insulin [...] Albumin Creatinine Ratio, Urine (06/22/2019 11:24 AM METAL CNC OPERATOR) Creatinine, ur 113 20 - 320 mg/dL [facility] [place] Microalbumin, ur 9.8 See Note: mg/dL [facility] [place] Comment: Reference Range: Reference Range Not established Microalbumin/creat ratio 87(H) <30 mcg/mg creat [facility] [place] Comment: The ADA defines abnormalities in albumin excretion as follows: Category Result (mcg/mg creatinine) Normal <30 Microalbuminuria 30-299 Clinical albuminuria > OR = 300 The ADA recommends that at least two of three specimens collected within a 3-6 month period be abnormal before considering a patient to be within a diagnostic category. Urine 06/22/2019 11:2 4 AM METAL CNC OPERATOR 06/22/2019 11:26 AM METAL CNC OPERATOR Narrative Resulting Agency Comment Performing Organization Information: Site ID: [place] Name: [employer] [facility] Address: [address] [place] [address] Director: Arthur Marsh D.O., MPH us Yomaira Escalona MD LAB URINE ORDERABLES Final Result [facility] - [place], [place] * POCT hemoglobin A1c (06/09/2019 8:43 AM METAL CNC OPERATOR) Hemoglobin A1C, POC 8.9 Blood specimen (specimen) 06/09/2019 8:43 AM METAL CNC OPERATOR Yomaira Escalona MD POINT OF CARE TEST ORDERABL ES Final Result * (ABNORMAL) Comprehensive metabolic panel (05/12/2018 11:03 AM CDT) Glucose 429(H) 65 - 99 mg/dL [facility] [place] Comment: Verified by repeat analysis. Fasting reference interval For someone without known diabetes, a glucose value >125 mg/dL indicates that they may have diabetes and this should be confirmed with a follow-up test. BUN 14 7 - 25 mg/dL [facility] [place] Creatinine 1.10 0.70 - 1.25 mg/dL [facility] [place] Comment: For patients >49 years of age, the reference limit for Creatinine is approximately 13% higher for people identified as -Honduran. eGFR NON-AFR. VINCENTIAN 72 > OR = 60 mL/min/1 .73m2 [facility] [place] EGFR 84 > OR = 60 mL/min/1 .73m2 [facility] [place] BUN/creat ratio NOT APPLICABLE (calc) [facility] [place] Sodium 136 135 - 146 mmol/L [facility] [place] Potassium, pl 4.6 3.5 - 5.3 mmol/L [facility] [place] Chloride 99 98 - 110 mmol/L [facility] [place] CO2 28 20 - 32 mmol/L [facility] [place] Calcium 9.0 8.6 - 10.3 mg/dL [facility] [place] Protein, sr 6.8 6.1 - 8.1 g/dL [facility] [place] Albumin 4.2 3.6 - 5.1 g/dL [facility] [place] GLOBULIN 2.6 1.9 - 3.7 g/dL (calc) [facility] [place] Alb/glob ratio 1.6 1.0 - 2.5 (calc) [facility] [place] Bilirubin, total 0.6 0.2 - 1.2 mg/dL [facility] [place] Alk phos 76 40 - 115 U/L [facility] [place] AST 19 10 - 35 U/L [facility] [place] ALT (SGPT) 21 9 - 46 U/L [facility] [place] 05/12/2018 11:0 3 AM CDT 05/12/2018 11:04 AM CDT Narrative [facility] - 05/13/2018 7:52 AM CDT FASTING:YES FASTING: YES Resulting Agency Comment Performing Organization Information: Site ID: [place] Name: [facility] Address: [address] [place] [address] Director: Arthur aMrsh D.O., MPH Yomaira Escalona MD LAB BLOOD ORDERABLES Final Result [facility] [place] from Last 3 Months or Most Recently Relevant to Health Maintenance Insurance [place] [employer] [facility] MEDICARE ADVANTAGE [facility] Address: [address] [address] [place] [address] [facility] MEDICARE ADVANTAGE Care Teams Repair Operator Relationship Specialty Start Date End Date Jeramie Dempsey MD PCP - General Internal Medicine 12/09/18
--- OUTSIDE RECORDS SUMMARY | 2024-10-29 08:15 | XMS_ITS | Referral Summary ---
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 1 each 06/09/20 Active insulin aspart U-100 [...] 05/04/2015 Assessment & Plan (06/10/2019 1:41 PM OYSTERMAN): Glucoses highly variable, he needs to get [...] on file Legal Sex Male 1:05 AM OYSTERMAN Gender Identity Not on file Sexual Orientation Not on file Last Filed Vital Signs Vital Sign Reading Time Taken Comments Blood Pressure 110/57 06/20/2024 5:37 PM OYSTERMAN Pulse 70 06/20/2024 5:37 PM OYSTERMAN Temperature 36.8 C (98.3 F) 06/20/2024 5:37 PM OYSTERMAN Respiratory Rate 18 06/20/2024 5:37 PM OYSTERMAN Oxygen Saturation 98% 06/20/2024 5:37 PM OYSTERMAN Inhaled Oxygen Concentration - - Weight 81.6 kg (180 lb) 06/20/2024 5:37 PM OYSTERMAN Height 172.7 cm (5' 8 ) 06/20/2024 5:37 PM OYSTERMAN Body Mass Index 27.37 06/20/2024 5:37 PM OYSTERMAN Plan of Treatment Not on file Procedures Procedure Name Priority Date/Time Associated Diagnosis Comments POCT LIPID PANEL Routine 01/28/2024 9:01 AM CDT Lipid screening ALBUMIN CREATININE RATIO, URINE Routine 06/22/2019 11:24 AM OYSTERMAN Uncontrolled type 2 diabetes mellitus with insulin therapy ([facility]) POCT HEMOGLOBIN A1C Routine 06/09/2019 8 :43 AM OYSTERMAN Uncontrolled type 2 diabetes mellitus with insulin therapy ([facility]) COMPREHENSIVE METABOLIC PANEL Routine 05/12/2018 11:03 AM CDT from Last 3 Months or Most Recently Relevant to Health Maintenance Results * POCT lipid panel (01/28/2024 9:01 AM CDT) Capillary blood 01/28/2024 9 :01 AM CDT us Matthew Damico MD POINT OF CARE TEST ORDER JOVANNY Final Result * (ABNORMAL) Albumin Creatinine Ratio, Urine (06/22/2019 11:24 AM OYSTERMAN) Creatinine, ur 113 20 - 320 mg/dL [facility] [place] Microalbumin, ur 9.8 See Note: mg/dL [facility] [place] Comment: Reference Range: Reference Range Not established Microalbumin/creat ratio 87(H) <30 mcg/mg creat [facility] - [place] Comment: The ADA defines abnormalities in albumin excretion as follows: Category Result (mcg/mg creatinine) Normal <30 Microalbuminuria 30-299 Clinical albuminuria > OR = 300 The ADA recommends that at least two of three specimens collected within a 3-6 month period be abnormal before considering a patient to be within a diagnostic category. Urine 06/22/2019 11:2 4 AM OYSTERMAN 06/22/2019 11:26 AM OYSTERMAN Narrative Resulting Agency Comment Performing Organization Information: Site ID: [place] Name: [facility] Address: [address] [address] Director: Arthur Marsh D.O., MPH us Yomaira Escalona MD LAB URINE ORDERABLES Final Result [facility] [place] * POCT hemoglobin A1c (06/09/2019 8:43 AM OYSTERMAN) Hemoglobin A1C, POC 8.9 Blood specimen (specimen) 06/09/2019 8:43 AM OYSTERMAN us Yomaira Escalona MD POINT OF CARE TEST ORDERABL ES Final Result * (ABNORMAL) Comprehensive metabolic panel (05/12/2018 11:03 AM CDT) Glucose 429(H) 65 - 99 mg/dL [facility] [place] Comment: Verified by [...] approximately 13% higher for people identified as -Andorran. eGFR NON-AFR. [place] CITIZEN 72 > OR = 60 mL/min/1 .73m2 [...] Site ID: [place] Name: [facility] Address: [address] [address] Director: Arthur Marsh D.O., MPH Yomaira Escalona MD LAB BLOOD ORDERABLES Final Result [facility] [place] from Last 3 Months or Most Recently Relevant to Health Maintenance [facility] MEDICARE ADVANTAGE [facility] MEDICARE ADVANTAGE Care Teams Gis Developer Relationship Specialty Start Date End Date Jeramie Dempsey MD PCP - General Internal Medicine 12/09/18
--- NOTE | 2024-10-29 12:26 | WPDPFTINT ---
PFT Procedure Performed PFT Procedure Performed Spirometry with Pre/Post Bronchodilator Plethysmography (Lung Vol) Diffusing Cap (DLCO) Flow Vol Loop PFT Interpretation This is a pulmonary function test with pre and post-bronchodilator spirometry, plethysmography and diffusing capacity. The test was performed and results interpreted in accordance with the 2019 and 2005 ATS/ERS Task Force guidelines respectively using the Global Lung Function Initiative-2012 reference equations. Patient demonstrated good effort and cooperation. Reproducibility criteria were met. The quality of the pre bronchodilator spirometry maneuver was Grade B and post bronchodilator spirometry maneuver was Grade B. Findings: Spirometry: The contour the expiratory flow tracing is notched in 2 of 4 pre bronchodilator maneuvers and 3 of 3 post bronchodilator maneuvers. The contour the inspiratory flow tracing is normal. The pre bronchodilator FVC is 3.72 L, 89% predicted. The pre bronchodilator FEV1 is 2.80 L, 88% predicted. The pre bronchodilator FEV1: FVC ratio 75%. The post bronchodilator FVC is 3.64 L, representing a 2% decrease. The post bronchodilator FEV1 is 2.72 L, representing a 3% decrease. The post bronchodilator FEV1: FVC ratio 75%. Plethysmography: The total lung capacity is 7.30 L, 107% predicted. The functional residual capacity is 3.31 L, 93% predicted. The residual volume is 2.73 L, 117% predicted. Diffusing capacity: The diffusing capacity unadjusted for hemoglobin and carboxyhemoglobin is 20.5, 78% predicted. The diffusing capacity adjusted for alveolar volume is 4.37, 108% predicted. Impression: There is reproducible notch in the expiratory flow tracing. The notched pattern has been described with coughing or tracheobronchomalacia. Otherwise, the spirometry is normal without evidence of an obstructive abnormality. There is no significant improvement after inhaling a single dose of albuterol. The lung volumes are normal. The diffusing capacity is normal. There are no prior studies for comparison
== END 2024-10-29 08:11 | disposition home or self-care (01) ==
PROVIDERS: PCP Internal Medicine; Visit Provider Internal Medicine
DX: R05.3 Chronic cough (principal)
CPT/HCPCS: 94060; 94726; 94729

== ENCOUNTER 2024-12-31 14:09 | Outpatient (CLI) | payer MEDICARE, SELFPAY ==
--- OUTSIDE RECORDS SUMMARY | 2024-12-31 14:44 | XMS_ITS | Continuity of Care Document ---
Author Organization [facility] Address [address] [place] [address] Dr Sanderson [address] [place] [id number] Phone Care Team Providers Care Data Center Manager Name Role Phone Pan Brownlee Unavailable Unavailable [...] Date Provider Providers Copied on Encounter [facility], [address] [place] [address] [address], [place], [place], [id number], [place] tel:[phone] [facility] No Information Kem Perla. [address] [place], [address], [place]. tel:[phone] Referring Provider: Pan Tran, [address] [place], [address]. tel:[phone] [facility], [address], [place], [place], [id number], [place] tel:[phone] [facility] No Information Kem Perla. [address] [place], [address], [place]. tel:[phone] Referring Provider: Pan Tran, [address] [place], [address]. tel:[phone] [facility], [address] [facility] [address], [place], [place], [id number], [place] tel:[phone] [facility] No Information Kem Perla. [address] [place], [address], [place]. tel:[phone] Referring Provider: Pan Tran, [address] [place], [address]. tel:[phone] [facility], [address], [place], [place], [id number], [place] tel:[phone] [facility] No Information Kem Perla. [address] [place], [address], [place]. tel: [phone] [facility], [address], [place], [place], [id number], [place] tel:[phone] [facility] No Information Kem Perla. [address] [place], [address], [place]. tel: [phone] Referring Provider: Pan Tran, [address] [place], [address]. tel:[phone] [facility], [address], [place], [place], [address], [place] tel:[phone] [facility] No Information Kem Perla. [address] [place], [address], [place]. tel: [phone] [facility], [address], [place], [place], [id number], [place] tel:[phone] [facility] No Information Kem Perla. [address] [place], [address], [place]. tel: [phone] Referring Provider: Pan Tran, [address] [place], [address]. tel:[phone] [facility], [address], [place], [place], [id number], [place] tel:[phone] [facility] No Information Kem Perla. [address] [place], [address], [place]. tel: [phone] Referring Provider: Pan Tran, [address] [place], [address]. tel:[phone] [facility], [address], [place], [place], [id number], [place] tel:[phone] [facility] No Information Kem Perla. [address] [place], [address], [place]. tel:[phone] [facility], [address] [place] [address] [address], [place], [place], [id number], [place] tel:[phone] [facility] No Information Kem Perla. [address] [place], [address], [place]. tel:[phone] Referring Provider: Pan Tran, [address] [place], [address]. tel:[phone] [facility], [address] [place] [address] [address], [place], [place], [address], [place] tel:[phone] [facility] No Information Kem Perla. [address] [place], [address], [place]. tel:[phone] Referring Provider: Pan Tran, [address] [place], [address]. tel:[phone] [facility], [address], [place], [place], [address], [place] tel:[phone] [facility] No Information Kem Perla. [address] [place], [address], [place]. tel:[phone] Referring Provider: Pan Tran, [address] [place], [address]. tel:[phone] [facility], [address], [place], [place], [address], [place] tel:[phone] [facility] No Information Kem Perla. [address] [place], [address], [place]. tel:[phone] Referring Provider: Pan Tran, [address] [place], [address]. tel:[phone] [facility], [address], [place], [place], [address], [place] tel:[phone] [facility] No Information Kem Perla. [address] [place], [address], [place]. tel:[phone] Referring Provider: Pan Tran, [address] [place], [address]. tel:[phone] [facility], [address], [place], [place], [address], [place] tel:[phone] [facility] No Information Kem Perla. [address] [place], [address], [place]. tel:[phone] Referring Provider: Pan Tran, [address] [place], [address]. tel:[phone] [facility], [address], [place], [place], [id number], [place] tel:[phone] [facility] No Information Kem Perla. [address] [place], [address], [place]. tel:[phone] Referring Provider: Pan Tran, [address] [place], [address]. tel:[phone] [facility], [address], [place], [place], [address], [place] tel:[phone] [facility] No Information Kem Perla. [address] [place], [address], [place]. [phone] [facility], [address], [place], [place], [address], [place] tel:[phone] [facility] No Information Kem Perla. [address] [place], [address], [place]. [phone] Referring Provider: Pan Tran, [address] [place], [address]. tel:[phone] [facility], [address], [place], [place], [address], [place] tel:[phone] [facility] No Information Kem Perla. [address] [place], [facility], [place]. [phone] Referring Provider: Pan Tran, [address] [place], [address]. tel:[phone] [facility], [address], [place], [place], [address], [place] tel:[phone] [facility] No Information Kem Perla. [address] [place], [facility], [place]. [phone] [facility], [address], [place], [place], [address], [place] tel:[phone] [facility] No Information Kem Perla. [address] [place], [address], [place]. tel:[phone] [facility], [address], [place], [place], [address], [place] tel:[phone] [facility] No Information Kem Perla. [address] [place], [address], [place]. tel:[phone] [facility], [address], [place], [place], [address], [place] tel:[phone] [facility] No Information Kem Perla. [address] [place], [address], [place]. tel:[phone] Referring Provider: Juan J Mcleod OD, [address] [place], [address]. tel:[phone] Family History Family Member Type Diagnosis Age At Onset No Information Payers Payer name Insurance type Covered alliance party ID Authoriza tion(s) No Information Social [...]
--- OUTSIDE RECORDS SUMMARY | 2024-12-31 14:44 | XMS_ITS | Clinical Summary ---
Author Organization [facility] 2 Address [address] [facility] [place] [address] Care Team Providers Care Power Plant Operator Name Role Phone Jeramie Dempsey MD Primary Care Provider [phone] Allergies Active Allergy Reactions Criticality Noted Date [...] 3 06/09/20 Active blood-glucose meter,continuous (DEXCOM G6 INTERNATIONAL RELATIONS TEACHER) miscIndications:Un controlled type 2 diabetes mellitus with insulin therapy One cream maker 1 each 06/09/20 Active insulin aspart U-100 [...] 05/04/2015 Assessment & Plan (06/10/2019 1:41 PM PRINT LINE SUPERVISOR): Glucoses highly variable, he needs to get [...] on file Legal Sex Male 1:05 AM PRINT LINE SUPERVISOR Gender Identity Not on file Sexual Orientation Not on file Obstetrics History Last Filed Vital Signs Vital Sign Reading Time Taken Comments Blood Pressure 110/57 06/20/2024 5:37 PM PRINT LINE SUPERVISOR Pulse 70 06/20/2024 5:37 PM PRINT LINE SUPERVISOR Temperature 36.8 C (98.3 F) 06/20/2024 5:37 PM PRINT LINE SUPERVISOR Respiratory Rate 18 06/20/2024 5:37 PM PRINT LINE SUPERVISOR Oxygen Saturation 98% 06/20/2024 5:37 PM PRINT LINE SUPERVISOR Inhaled Oxygen Concentration - - Weight 81.6 kg (180 lb) 06/20/2024 5:37 PM PRINT LINE SUPERVISOR Height 172.7 cm (5' 8) 06/20/2024 5:37 PM PRINT LINE SUPERVISOR Body Mass Index 27.37 06/20/2024 5:37 PM PRINT LINE SUPERVISOR Plan of Treatment Health Maintenance Due Date [...] Urine 06/22/2020 9 Well Visit 65+ 2021 Lipid Panel 01/27/2025 01/28/2024, 07/22, 07/17/2021, Additional history exists Influenza Vaccine (Season Ended) 2025 04/23/2013, 04/21/2011, 04/21/2010 Procedures Procedure Name Priority Date/Time Associated Diagnosis Comments POCT LIPID PANEL Routine 01/28/2024 9:01 AM CDT Lipid screening ALBUMIN CREATININE RATIO, URINE Routine 06/22/2019 11:24 AM PRINT LINE SUPERVISOR Uncontrolled type 2 diabetes mellitus with insulin therapy (CMS/HCC) POCT HEMOGLOBIN A1C Routine 06/09/2019 8 :43 AM PRINT LINE SUPERVISOR Uncontrolled type 2 diabetes mellitus with insulin [...] Albumin Creatinine Ratio, Urine (06/22/2019 11:24 AM PRINT LINE SUPERVISOR) Creatinine, ur 113 20 - 320 mg/dL [facility] [place] Microalbumin, ur 9.8 See Note: mg/dL [facility] [place] Comment: Reference Range: Reference Range Not established Microalbumin/creat ratio 87(H) <30 mcg/mg creat [facility] [place] Comment: The ADA defines abnormalities in albumin excretion as follows: Category Result (mcg/mg creatinine) Normal <30 Microalbuminuria 30-299 Clinical albuminuria > OR = 300 The ADA recommends that at least two of three specimens collected within a 3-6 month period be abnormal before considering a patient to be within a diagnostic category. Urine 06/22/2019 11:2 4 AM PRINT LINE SUPERVISOR 06/22/2019 11:26 AM PRINT LINE SUPERVISOR Narrative Resulting Agency Comment Performing Organization Information: Site ID: [place] Name: [facility] Address: [address] [place] [address] [place] [address] Director: Arthur Marsh D.O., MPH us Yomaira Escalona MD LAB URINE ORDERABLES Final Result [facility] [place], [place] * POCT hemoglobin A1c (06/09/2019 8:43 AM PRINT LINE SUPERVISOR) Hemoglobin A1C, POC 8.9 Blood specimen (specimen) 06/09/2019 8:43 AM PRINT LINE SUPERVISOR Yomaira Escalona MD POINT OF CARE TEST ORDERABL ES Final Result * (ABNORMAL) Comprehensive metabolic panel (05/12/2018 11:03 AM CDT) Glucose 429(H) 65 - 99 mg/dL [facility] [place] Comment: Verified by repeat analysis. Fasting reference interval For someone without known diabetes, a glucose value >125 mg/dL indicates that they may have diabetes and this should be confirmed with a follow-up test. BUN 14 7 - 25 mg/dL [facility] [place] Creatinine 1.10 0.70 - 1.25 mg/dL [facility] [place] Comment: For patients >49 years of age, the reference limit for Creatinine is approximately 13% higher for people identified as -Chadian. eGFR NON-AFR. LATVIAN 72 > OR = 60 mL/min/1 .73m2 [facility] [place] EGFR 84 > OR = 60 mL/min/1 .73m2 [facility] [place] BUN/creat ratio NOT APPLICABLE (calc) [facility] [place] Sodium 136 135 - 146 mmol/L [facility] [place] Potassium, pl 4.6 3.5 - 5.3 mmol/L [facility] [place] Chloride 99 98 - 110 mmol/L [facility] [place] CO2 28 20 - 32 mmol/L [facility] [place] Calcium 9.0 8.6 - 10.3 mg/dL [facility] [place] Protein, sr 6.8 6.1 - 8.1 g/dL [facility] [place] Albumin 4.2 3.6 - 5.1 g/dL [facility] [place] GLOBULIN 2.6 1.9 - 3.7 g/dL (calc) [facility] [place] Alb/glob ratio 1.6 1.0 - 2.5 (calc) [facility] [place] Bilirubin, total 0.6 0.2 - 1.2 mg/dL [facility] [place] Alk phos 76 40 - 115 U/L [facility] [place] AST 19 10 - 35 U/L [facility] [place] ALT (SGPT) 21 9 - 46 U/L [facility] [place] 05/12/2018 11:0 3 AM CDT 05/12/2018 11:04 AM CDT Narrative [facility] - 05/13/2018 7:52 AM CDT FASTING:YES FASTING: YES Resulting Agency Comment Performing Organization Information: Site ID: [place] Name: [facility] Address: [address] [facility] [place] [address] Director: Arthur Marsh D.O., MPH Yomaira Escalona MD LAB BLOOD ORDERABLES Final Result [facility] [place] from Last 3 Months or Most Recently Relevant to Health Maintenance Insurance [place] [employer] [place] [facility] MEDICARE [facility] Address: [address] [address] [place] [address] [facility] MEDICARE ADVANTAGE Care Teams Power Plant Operator Relationship Specialty Start Date End Date Jeramie Dempsey MD PCP - General Internal Medicine 12/09/18
--- OUTSIDE RECORDS SUMMARY | 2024-12-31 14:44 | XMS_ITS | Referral Summary ---
Author Organization [facility] 2 Address [address] [place] [address] Care Team Providers Care Shrimp Header Name Role Phone Jeramie Dempsey MD Primary Care Provider [phone] Allergies Active Allergy Reactions Criticality Noted Date [...] 3 06/09/20 Active blood-glucose meter,continuous (DEXCOM G6 WOOD MODEL MAKER) miscIndications:Un controlled type 2 diabetes mellitus with insulin therapy One obiee consultant 1 each 06/09/20 Active insulin aspart U-100 [...] 05/04/2015 Assessment & Plan (06/10/2019 1:41 PM FOOD TECHNICIAN): Glucoses highly variable, he needs to get [...] on file Legal Sex Male 1:05 AM FOOD TECHNICIAN Gender Identity Not on file Sexual Orientation Not on file Last Filed Vital Signs Vital Sign Reading Time Taken Comments Blood Pressure 110/57 06/20/2024 5:37 PM FOOD TECHNICIAN Pulse 70 06/20/2024 5:37 PM FOOD TECHNICIAN Temperature 36.8 C (98.3 F) 06/20/2024 5:37 PM FOOD TECHNICIAN Respiratory Rate 18 06/20/2024 5:37 PM FOOD TECHNICIAN Oxygen Saturation 98% 06/20/2024 5:37 PM FOOD TECHNICIAN Inhaled Oxygen Concentration - - Weight 81.6 kg (180 lb) 06/20/2024 5:37 PM FOOD TECHNICIAN Height 172.7 cm (5' 8) 06/20/2024 5:37 PM FOOD TECHNICIAN Body Mass Index 27.37 06/20/2024 5:37 PM FOOD TECHNICIAN Plan of Treatment Not on file Procedures Procedure Name Priority Date/Time Associated Diagnosis Comments POCT LIPID PANEL Routine 01/28/2024 9:01 AM CDT Lipid screening ALBUMIN CREATININE RATIO, URINE Routine 06/22/2019 11:24 AM FOOD TECHNICIAN Uncontrolled type 2 diabetes mellitus with insulin therapy ([facility]) POCT HEMOGLOBIN A1C Routine 06/09/2019 8 :43 AM FOOD TECHNICIAN Uncontrolled type 2 diabetes mellitus with insulin therapy ([facility]) COMPREHENSIVE METABOLIC PANEL Routine 05/12/2018 11:03 AM CDT from Last 3 Months or Most Recently Relevant to Health Maintenance Results * POCT lipid panel (01/28/2024 9:01 AM CDT) Capillary blood 01/28/2024 9 :01 AM CDT us Matthew Damico MD POINT OF CARE TEST ORDER JOVANNY Final Result * (ABNORMAL) Albumin Creatinine Ratio, Urine (06/22/2019 11:24 AM FOOD TECHNICIAN) Creatinine, ur 113 20 - 320 mg/dL [facility] [place] Microalbumin, ur 9.8 See Note: mg/dL [facility] [place] Comment: Reference Range: Reference Range Not established Microalbumin/creat ratio 87(H) <30 mcg/mg creat [facility] - [place] Comment: The ADA defines abnormalities in albumin excretion as follows: Category Result (mcg/mg creatinine) Normal <30 Microalbuminuria 30-299 Clinical albuminuria > OR = 300 The ADA recommends that at least two of three specimens collected within a 3-6 month period be abnormal before considering a patient to be within a diagnostic category. Urine 06/22/2019 11:2 4 AM FOOD TECHNICIAN 06/22/2019 11:26 AM FOOD TECHNICIAN Narrative Resulting Agency Comment Performing Organization Information: Site ID: [place] Name: [facility] Address: [address] [address] Director: Arthur Marsh D.O., MPH us Yomaira Escalona MD LAB URINE ORDERABLES Final Result [facility] [place] * POCT hemoglobin A1c (06/09/2019 8:43 AM FOOD TECHNICIAN) Hemoglobin A1C, POC 8.9 Blood specimen (specimen) 06/09/2019 8:43 AM FOOD TECHNICIAN us Yomaira Escalona MD POINT OF CARE TEST ORDERABL ES Final Result * (ABNORMAL) Comprehensive metabolic panel (05/12/2018 11:03 AM CDT) Glucose 429(H) 65 - 99 mg/dL [facility] - [place] Comment: Verified by repeat [...] approximately 13% higher for people identified as -Faroese. eGFR NON-AFR. EQUATORIAL GUINEAN 72 > OR = 60 mL/min/1 .73m2 [...] Site ID: [place] Name: Richard [facility] Address: [address] [address] Director: Arthur Marsh D.O., MPH Yomaira Escalona MD LAB BLOOD ORDERABLES Final Result [facility] [place] from Last 3 Months or Most Recently Relevant to Health Maintenance [facility] [place] [facility] MEDICARE ADVANTAGE [facility] Address: [address] [address] [place] [address] [facility] MEDICARE ADVANTAGE [facility] MEDICARE Address: [address] [address] Care Teams Shrimp Header Relationship Specialty Start Date End Date Jeramie Dempsey MD PCP - General Internal Medicine 12/09/18
[2024-12-31 14:51] LABS: Alanine Aminotransferase 90 U/L (6-50); Albumin Level 4.5 g/dL (3.5-5.1); Alkaline Phosphatase 76 U/L (38-126); Anion Gap 8 mmol/L (4-12); Aspartate Amino Transferase 86 U/L (17-59); Blood Urea Nitrogen 18 mg/dL (9-20); Calcium 9.5 mg/dL (8.4-10.2); Carbon Dioxide 28 mmol/L (22-30); Chloride 101 mmol/L (98-107); Cholesterol 120 mg/dL (0-200); Estimated Glomerular Filt Rate > 60; Glucose 308 mg/dL (65-110); HDL Direct 37 mg/dL; Potassium 4.9 mmol/L (3.4-5.0); Sodium 137 mmol/L (137-145); Total Protein 7.6 g/dL (6.3-8.2); Triglycerides 219 mg/dL (<150)
[2024-12-31 15:02] LABS: LDL Cholesterol Direct 43 mg/dL
[2024-12-31 15:34] LABS: Hemoglobin A1C 8.5 % (<5.7)
[2024-12-31 16:01] LABS: Creatinine Urine 60.5 mg/dL
[2024-12-31 16:08] LABS: MALB Creatinine Ratio 91.7 mg/g (0-30); Microalbumin Urine Random 55.5 mg/L (0-16.7)
[2024-12-31 16:17] LABS: Free T4 Free Thyroxine 0.87 ng/dL (0.78-2.19)
== END 2024-12-31 14:10 | disposition home or self-care (01) ==
PROVIDERS: PCP Internal Medicine; Visit Provider Internal Medicine
DX: R79.89 Other specified abnormal findings of blood chemistry (principal); E11.9 Type 2 diabetes mellitus without complications; E78.2 Mixed hyperlipidemia; I10 Essential (primary) hypertension; Z79.4 Long term (current) use of insulin
CPT/HCPCS: 36415; 80053; 80061; 82043; 83036; 84439; 84443

== ENCOUNTER 2025-04-26 07:55 | Outpatient (CLI) | payer MEDICARE, SELFPAY ==
--- OUTSIDE RECORDS SUMMARY | 2010-06-19 09:30 | XMS_ITS | Continuity of Care Document ---
Author Organization [facility] [employer] [facility] Address [address] [place] [address] Dr Sand[address] [place] [phone] Phone Care Team Providers Care Package Sorter Name Role Phone Pan Brownlee Unavailable Unavailable [...] Diagnoses Date Provider Providers [facility]ied on Encounter [facility], [address] [place] [address] [address], [place], [place], [address], [place] tel:[phone] [facility] No Information Kem Perla. [address] [place], [address], [place]. tel:[phone] Referring Provider: Pan Tran, [address] [place], [address]. tel:[phone] [facility], [address], [place], [place], [address], [place] tel:[phone] [facility] No Information Kem Perla. [address] [place], [address], [place]. tel:[phone] Referring Provider: Pan Tran, [address] [place], [address]. tel:[phone] [facility], [address] [facility] [place], [facility] [address], [place], [place], [address], [place] tel:[phone] [facility] No Information Kem Perla. [address] [place], [address], [place]. tel:[phone] Referring Provider: Pan Tran, [address] [place], [address]. tel:[phone] [facility], [address], [place], [place], [address], [place] tel:[phone] [facility] No Information Kem Perla. [address] [place], [address], [place]. tel: [phone] [facility], [address], [place], [place], [address], [place] tel:[phone] [facility] No Information Kem Perla. [address] [place], [address], [place]. tel: [phone] Referring Provider: Pan Tran, [address] [place], [address]. tel:[phone] [facility], [address], [place], [place], [address], [place] tel:[phone] [facility] No Information Kem Perla. [address] [place], [address], [place]. tel: [phone] [facility], [address], [place], [place], [address], [place] tel:[phone] [facility] No Information Kem Perla. [address] [place], [address], [place]. tel: [phone] Referring Provider: Pan Tran, [address] [place], [address]. tel:[phone] [facility], [address], [place], [place], [address], [place] tel:[phone] [facility] No Information Kem Perla. [address] [place], [address], [place]. tel: [phone] Referring Provider: Pan Tran, [address] [place], [address]. tel:[phone] [facility], [address], [place], [place], [address], [place] tel:[phone] [facility] No Information Kem Perla. [address] [place], [address], [place]. tel:[phone] [facility], [address] [place] [address] [address], [place], [place], [address], [place] tel:[phone] [facility] No Information Kem Perla. [address] [place], [address], [place]. tel:[phone] Referring Provider: Pan Tran, [address] [place], [address]. tel:[phone] [facility], [address] [place] [address] [address], [place], [place], [address], [place] tel:[phone] [facility] No Information Kem Perla. [address] [place], [address], [place]. tel:[phone] Referring Provider: Pan Tran, [address] [place], [address]. tel:[phone] [facility], [address], [place], [place], [address], [place] tel:[phone] [facility] No Information Kem Perla. [address] [place], [address], [place]. tel:[phone] Referring Provider: Pan Tran, [address] [place], [address]. tel:[phone] [facility], [address], [place], [place], [address], [place] tel:[phone] [facility] No Information Kem Perla. [address] [place], [address], [place]. tel:[phone] Referring Provider: Pan Tran, [address] [place], [address]. tel:[phone] [facility], [address], [place], [place], [address], [place] tel:[phone] [facility] No Information Kem Perla. [address] [place], [address], [place]. tel:[phone] Referring Provider: Pna Tran, [address] [place], [address]. tel:[phone] [facility], [address], [place], [place], [address], [place] tel:[phone] [facility] No Information Kem Perla. [address] [place], [address], [place]. tel:[phone] Referring Provider: Pan Tran, [address] [place], [address]. tel:[phone] [facility], [address], [place], [place], [address], [place] tel:[phone] [facility] No Information Kem Perla. [address] [place], [address], [place]. tel:[phone] Referring Provider: Pan Tran, [address] [place], [address]. tel:[phone] [facility], [address], [place], [place], [address], [place] tel:[phone] [facility] No Information Kem Perla. [address] [place], [address], [place]. [phone] [facility], [address], [place], [place], [address], [place] tel:[phone] [facility] No Information Kem Perla. [address] [place], [address], [place]. [phone] Referring Provider: Pan Tran, [address] [place], [address]. tel:[phone] [facility], [address], [place], [place], [address], [place] tel:[phone] [facility] No Information Kem Perla. [address] [place], [facility], [place]. [phone] Referring Provider: Pan Tran, [address] [place], [address]. tel:[phone] [facility], [address], [place], [place], [address], [place] tel:[phone] [facility] No Information Kem Perla. [address] [place], [facility], [place]. [phone] [facility], [address], [place], [place], [address], [place] tel:[phone] [facility] No Information Kem Perla. [address] [place], [address], [place]. tel:[phone] [facility], [address], [place], [place], [address], [place] tel:[phone] [facility] No Information Kem Perla. [address] [place], [address], [place]. tel:[phone] [facility], [address], [place], [place], [address], [place] tel:[phone] [facility] No Information Kem Perla. [address] [place], [address], [place]. tel:[phone] Referring Provider: Juan J Mcleod OD, [address] [place], [address]. tel:[phone] Family History Family Member Type Diagnosis Age At Onset No Information Payers Payer name Insurance type Covered libertarian ID Authoriza tion(s) No Information Social History [...]
--- NOTE | ~2025-04-26 | MR_ITS ---
EXAMINATION: MR brain/brain stem wo/w con DATE: 04/26/2025 08:48 INDICATION: Migraine, unspecified, not intractable. TECHNIQUE: Magnetic resonance imaging (MRI) of the brain and brainstem was performed without and with 16 mL MultiHance intravenous contrast. COMPARISON: Brain MRI 06/03/2023 FINDINGS: There are scattered areas of nonspecific increased T2-weighted signal intensity in the cerebral white matter and cheryle, which is within normal limits for the patient's age. There is no intracranial hemorrhage, acute infarction, or abnormal intracranial mass lesion. The ventricles are normal in size. There are likely changes of ocular lens replacement surgeries. There is mucosal thickening in the paranasal sinuses. The mastoid air cells are normal. IMPRESSION: 1. Normal aging brain. Reviewed, dictated and finalized at location E. IMPRESSION: 1. Normal aging brain.
--- OUTSIDE RECORDS SUMMARY | 2025-04-26 08:03 | XMS_ITS | Clinical Summary ---
Author Organization [facility] Address [address] [place] [address] Care Team Providers Care Door Slinger Name Role Phone Jeramie Dempsey MD Primary Care Provider [phone] Social History Tobacco Use Types Packs/Day Years [...] Td Vaccines ( 1 - Tdap) 10/11/1975 Pneumococcal Vaccine: 50+ Ye ars (1 of 1 - PCV) 2006 Zoster Vaccines (1 of 2) 2006 COVID-19 Vaccine ( - 2023-2 5 season) 2025 RSV Immunization or 60+ Years (1 - 1-dose 75+ series) 10/11/2031 Meningococcal B Vaccine Aged Out No l onger eligible based on patient's age to complete this topic Meningococcal Vaccine Aged Out No cristian stevenson eligible based on patient's age to complete this topic RSV Immunizations Under 20 Months Aged Out No longer eligible based on patient's age to complete this topic Insurance [facility] Care Teams Door Slinger Relationship Specialty Start Date End Date Jeramie Dempsey MD [address] - [facility] [address] [place] [address] PCP - General INTERNAL MEDICINE 01/18/20
--- OUTSIDE RECORDS SUMMARY | 2025-04-26 08:03 | XMS_ITS | Clinical Summary ---
Author Organization [facility] 2 Address [address] [facility] [place] [address] Care Team Providers Care Bed Control Specialist Name Role Phone Jeramie Dempsey MD Primary Care Provider [phone] Allergies Active Allergy Reactions Criticality Noted Date [...] 3 06/09/20 Active blood-glucose meter,continuous (DEXCOM G6 VASCULAR TECHNOLOGIST SONOGRAPHER) miscIndications:Un controlled type 2 diabetes mellitus with insulin therapy One solutions executive security 1 each 06/09/20 Active insulin aspart U-100 [...] 05/04/2015 Assessment & Plan (06/10/2019 1:41 PM TOLL BRIDGE OPERATOR): Glucoses highly variable, he needs to [...] cath (Added by TW Conv) Diabetes mellitus Cataracts, bilateral 2005 Family History Medical History [...] on file Legal Sex Male 1:05 AM TOLL BRIDGE OPERATOR Gender Identity Not on file Sexual Orientation Not on file Obstetrics History Last Filed Vital Signs Vital Sign Reading Time Taken Comments Blood Pressure 110/57 06/20/2024 5:37 PM TOLL BRIDGE OPERATOR Pulse 70 06/20/2024 5:37 PM TOLL BRIDGE OPERATOR Temperature 36.8 C (98.3 F) 06/20/2024 5:37 PM TOLL BRIDGE OPERATOR Respiratory Rate 18 06/20/2024 5:37 PM TOLL BRIDGE OPERATOR Oxygen Saturation 98% 06/20/2024 5:37 PM TOLL BRIDGE OPERATOR Inhaled Oxygen Concentration - - Weight 81.6 kg (180 lb) 06/20/2024 5:37 PM TOLL BRIDGE OPERATOR Height 172.7 cm (5' 8) 06/20/2024 5:37 PM TOLL BRIDGE OPERATOR Body Mass Index 27.37 06/20/2024 5:37 PM TOLL BRIDGE OPERATOR Plan of Treatment Health Maintenance Due [...] 07/22, 07/17/2021, Additional history exists Influenza Vaccine (#1) 2025 3, 04/21/2011, 04/21/2010 Procedures Procedure Name Priority Date/Time Associated Diagnosis Comments POCT LIPID PANEL Routine 01/28/2024 9:01 AM CDT Lipid screening ALBUMIN CREATININE RATIO, URINE Routine 06/22/2019 11:24 AM TOLL BRIDGE OPERATOR Uncontrolled type 2 diabetes mellitus with insulin therapy (CMS/HCC) POCT HEMOGLOBIN A1C Routine 06/09/2019 8 :43 AM TOLL BRIDGE OPERATOR Uncontrolled type 2 diabetes mellitus with [...] Albumin Creatinine Ratio, Urine (06/22/2019 11:24 AM TOLL BRIDGE OPERATOR) Creatinine, ur 113 20 - 320 mg/dL [facility] [place] Microalbumin, ur 9.8 See Note: mg/dL [facility] - [place] Comment: Reference Range: Reference Range Not established Microalbumin/creat ratio 87(H) <30 mcg/mg creat [facility] - [place] Comment: The ADA defines abnormalities in albumin excretion as follows: Category Result (mcg/mg creatinine) Normal <30 Microalbuminuria 30-299 Clinical albuminuria > OR = 300 The ADA recommends that at least two of three specimens collected within a 3-6 month period be abnormal before considering a patient to be within a diagnostic category. Urine 06/22/2019 11:2 4 AM TOLL BRIDGE OPERATOR 06/22/2019 11:26 AM TOLL BRIDGE OPERATOR Narrative Resulting Agency Comment Performing Organization Information: Site ID: [id number] Name: [facility] Address: [address] [facility] [place] [address] Director: Arthur Marsh D.O., MPH us Yomaira Escalona MD LAB URINE ORDERABLES Final Result [facility] [place], [place] * POCT hemoglobin A1c (06/09/2019 8:43 AM TOLL BRIDGE OPERATOR) Hemoglobin A1C, POC 8.9 Blood specimen (specimen) 06/09/2019 8:43 AM TOLL BRIDGE OPERATOR Yomaira Escalona MD POINT OF CARE TEST ORDERABL ES Final Result * (ABNORMAL) Comprehensive metabolic panel (05/12/2018 11:03 AM CDT) Glucose 429(H) 65 - 99 mg/dL [facility] - [place] Comment: Verified by repeat analysis. Fasting reference interval For someone without known diabetes, a glucose value >125 mg/dL indicates that they may have diabetes and this should be confirmed with a follow-up test. BUN 14 7 - 25 mg/dL [facility] [place] Creatinine 1.10 0.70 - 1.25 mg/dL [facility] - [place] Comment: For patients >49 years of age, the reference limit for Creatinine is approximately 13% higher for people identified as -[place] Citizen. eGFR NON-AFR. THAI 72 > OR = 60 mL/min/1 .73m2 [facility] [place] EGFR 84 > OR = 60 mL/min/1 .73m2 [facility] [place] BUN/creat ratio NOT APPLICABLE 6 - 22 (calc) [facility] [place] Sodium 136 135 - 146 mmol/L [facility] [place] Potassium, pl 4.6 3.5 - 5.3 mmol/L [facility] [place] Chloride 99 98 - 110 mmol/L [facility] [place] CO2 28 20 - 32 mmol/L [facility] [place] Calcium 9.0 8.6 - 10.3 mg/dL [facility] [place] Protein, sr 6.8 6.1 - 8.1 g/dL [facility] [place] Albumin 4.2 3.6 - 5.1 g/dL [facility] [place] GLOBULIN 2.6 1.9 - 3.7 g/dL (calc) [facility] [place] Alb/glob ratio 1.6 1.0 - 2.5 (calc) [facility] [place] Bilirubin, total 0.6 0.2 - 1.2 mg/dL [facility] [place] Alk phos 76 40 - 115 U/L [facility] [place] AST 19 10 - 35 U/L [facility] [place] ALT (SGPT) 21 9 - 46 U/L [facility] - [place] 05/12/2018 11:0 3 AM CDT 05/12/2018 11:04 AM CDT Narrative [facility] - 05/13/2018 7:52 AM CDT FASTING:YES FASTING: YES Resulting Agency Comment Performing Organization Information: Site ID: [place] Name: [facility] Address: [address] [place] [address] Director: Arthur Marsh D.O., MPH Yomaira Escalona MD LAB BLOOD ORDERABLES Final Result [facility] [place] from Last 3 Months or Most Recently Relevant to Health Maintenance Insurance [place] [employer] [facility] MEDICARE ADVANTAGE [facility] Address: [address] [address] [place] [address] [facility] MEDICARE ADVANTAGE Member Subscriber Plan / Payer (Ef fective 2022-Present) Name:Vern Molina Relation to Subscriber:Self Name:Vern Molina Payer ID:[id number] (NAIC) Type:UHC MEDICARE Address: [place] [phone] Care Teams Bed Control Specialist Relationship Specialty Start Date End Date Jeramie Dempsey MD PCP - General Internal Medicine 12/09/18
== END 2025-04-26 07:56 | disposition home or self-care (01) ==
PROVIDERS: PCP Internal Medicine; Visit Provider Internal Medicine
DX: G43.909 Migraine, unspecified, not intractable, without status migrainosus (principal); G43.919 Migraine, unspecified, intractable, without status migrainosus
CPT/HCPCS: 70553; A9577

== ENCOUNTER 2025-04-29 08:42 | Outpatient (CLI) | payer MEDICARE, SELFPAY ==
--- NOTE | ~2025-04-29 | XR_ITS ---
EXAMINATION: XR barium swallow DATE: 04/29/2025 09:12 INDICATION: Dysphagia TECHNIQUE: The patient drank thick barium, gas-producing crystals, and thin barium. Fluoroscopic spot radiographs of the hypopharynx and esophagus were obtained. Fluoroscopy exposure time was 2.1 minutes. A total of 1674 fluoroscopic images were recorded. Total DAP was 12.568 Gycm^2.. COMPARISON: None. FINDINGS: The pharynx is symmetric and without evidence of mass lesion or mucosal irregularity. The esophagus is normal without mass or stricture. There is esophageal dysmotility most evident the prone position where there is weakening of the primary in secondary peristaltic waves beginning at the level of the thoracic inlet resulting in pooling of contrast in the more distal esophagus. There is a small sliding-type hiatal hernia with gastroesophageal junction extending up to a maximal 4 cm above level of the diaphragm. There was no gastroesophageal reflux with provocative maneuvers. IMPRESSION: 1. Esophageal dysmotility with weakening of the primary and secondary peristaltic waves beginning at the level of the thoracic inlet resulting in pooling of contrast in the thoracic esophagus in the prone position. No obstructing masses or strictures. 2. Small sliding-type hiatal hernia without evident gastro-esophageal reflux with provocative maneuvers. Reviewed, dictated and finalized at location A. IMPRESSION: 1. Esophageal dysmotility with weakening of the primary and secondary peristalt ic waves beginning at the level of the thoracic inlet resulting in pooling of c ontrast in the thoracic esophagus in the prone position. No obstructing masses or strictures. 2. Small sliding-type hiatal hernia without evident gastro-esophageal reflux wi th provocative maneuvers.
== END 2025-04-29 08:43 | disposition home or self-care (01) ==
PROVIDERS: PCP Internal Medicine; Visit Provider Nurse Practitioner Family
DX: R13.10 Dysphagia, unspecified (principal); K44.9 Diaphragmatic hernia without obstruction or gangrene
CPT/HCPCS: 74220

== ENCOUNTER 2025-05-03 03:59 | Day surgery (SDC) | payer MEDICARE, SELFPAY ==
--- OUTSIDE RECORDS SUMMARY | 2010-06-19 09:30 | XMS_ITS | Continuity of Care Document ---
Author Organization [employer] [facility] Address [address] [place] [address] Dr [address] [place] [id number] Phone Care Team Providers Care Supervisor Grips Name Role Phone Pan Brownlee Unavailable Unavailable [...] Diagnoses Date Provider Providers Copied on Encounter [facility] [employer] [facility], [address] [place] [address] [address], [place], [place], [id number], [place] tel:[phone] [facility] No Information Kem Perla. [address] [place], [address], [place]. tel:[phone] Referring Provider: Pan Tran, [address] [place], [address]. tel:[phone] [facility], [address], [place], [place], [id number], [place] tel:[phone] [facility] No Information Kem Perla. [address] [place], [address], [place]. tel:[phone] Referring Provider: Pan Tran, [address] [place], [address]. tel:[phone] [facility] [employer] [facility], [address] [facility] [address], [place], [place], [id number], [place] tel:[phone] [facility] No Information Kem Perla. [address] [place], [address], [place]. tel:[phone] Referring Provider: Pan Tran, [address] [place], [address]. tel:[phone] [facility], [address], [place], [place], [id number], [place] tel:[phone] SEC [facility] No Information Kem Perla. [address] [place], [address], [place]. tel: [phone] [facility], [address], [place], [place], [id number], [place] tel:[phone] [facility] No Information Kem Perla. [address] [place], [address], [place]. tel: [phone] Referring Provider: Pan Tran, [address] [place], [address]. tel:[phone] [facility], [address], [place], [place], [id number], [place] tel:[phone] [facility] No Information Kem Perla. [address] [place], [address], [place]. tel: [phone] [facility], [address], [place], [place], [id number], [place] tel:[phone] [facility] No Information Kem Perla. [address] [place], [address], [place]. tel: [phone] Referring Provider: Pan Tran, [address] [place], [address]. tel:[phone] [facility], [address], [place], [place], [id number], [place] tel:[phone] [facility] No Information Kem Perla. [address] [place], [address], [place]. tel: [phone] Referring Provider: Pan Tran, [address] [place], [address]. tel:[phone] [facility], [address], [place], [place], [id number], [place] tel:[phone] [facility] No Information Kem Perla. [address] [place], [address], [place]. tel:[phone] [facility], [id number] [place] [address] [address], [place], [place], [id number], [place] tel:[phone] [facility] No Information Kem Perla. [address] [place], [address], [place]. tel:[phone] Referring Provider: Pan Tran, [address] [place], [address]. tel:[phone] [facility], [address] [place] [address] [address], [place], [place], [id number], [place] tel:[phone] [facility] No Information Kem Perla. [address] [place], [address], [place]. tel:[phone] Referring Provider: Pan Tran, [address] [place], [address]. tel:[phone] [facility], [address], [place], [place], [id number], [place] tel:[phone] [facility] No Information Kem Perla. [address] [place], [address], [place]. tel:[phone] Referring Provider: Pan Tran, [address] [place], [address]. tel:[phone] [facility], [address], [place], [place], [id number], [place] tel:[phone] [facility] No Information Kem Perla. [address] [place], [address], [place]. tel:[phone] Referring Provider: Pan Tran, [address] [place], [address]. tel:[phone] [facility], [address], [place], [place], [id number], [place] tel:[phone] [facility] No Information Kem Perla. [address] [place], [address], [place]. tel:[phone] Referring Provider: Pan Tran, [address] [place], [address]. tel:[phone] [facility], [address], [place], [place], [id number], [place] tel:[phone] [facility] No Information Kem Perla. [address] [place], [address], [place]. tel: [phone] Referring Provider: Pan Tran, [address] [place], [address]. tel:[phone] [facility], [address], [place], [place], [id number], [place] tel:[phone] [facility] No Information Kem Perla. [address] [place], [address], [place]. tel:[phone] Referring Provider: Pan Tran, [address] [place], [address]. tel:[phone] [facility], [address], [place], [place], [id number], [place] tel:[phone] [facility] No Information Kem Perla. [address] [place], [address], [place]. [phone] [facility], [address], [place], [place], [id number], [place] tel:[phone] [facility] No Information Kem Perla. [address] [place], [address], [place]. [phone] Referring Provider: Pan Tran, [address] [place], [address]. tel:[phone] [facility], [address], [place], [place], [id number], [place] tel:[phone] [facility] No Information Kem Perla. [address] [place], [facility], [place]. [phone] Referring Provider: Pan Tran, [address] [place], [address]. tel:[phone] [facility], [address], [place], [place], [id number], [place] tel:[phone] [facility] No Information Kem Perla. [address], [place], [facility], [place]. [phone] [facility], [address], [place], [place], [id number], [place] tel:[phone] [facility] No Information Kem Perla. [address] [place], [address], [place]. tel:[phone] [facility], [address], [place], [place], [address], [place] tel:[phone] [facility] No Information Kem Perla. [address] [place], [address], [place]. tel:[phone] [facility], [address], [place], [place], [id number], [place] tel:[phone] [facility] No Information Kem Perla. [address] [place], [address], [place]. tel:[phone] Referring Provider: Juan J Mcleod OD, [address] [place], [address]. tel:[phone] Family History Family Member Type Diagnosis Age At Onset No Information Payers Payer name Insurance type Covered constitution party ID Authoriza tion(s) No Information Social History [...]
[2025-04-28 14:46] VITALS: BMI 26.6
--- OUTSIDE RECORDS SUMMARY | 2025-05-03 04:01 | XMS_ITS | Clinical Summary ---
Author Organization [facility] Address [address] [place] [address] Care Team Providers Care Label Operator Name Role Phone Jeramie Dempsey MD Primary Care Provider [phone] Social History Tobacco Use Types Packs/Day Years [...] Vaccine ( - 2023-2 5 season) 2025 Influenza Adult (#1) 2025 RSV Immunization or 60+ Years (1 [...] patient's age to complete this topic Insurance [facility] Care Teams Label Operator Relationship Specialty Start Date End Date Jeramie Dempsey MD [address] - [facility] [address] [place] [address] PCP - General INTERNAL MEDICINE 01/18/20
--- OUTSIDE RECORDS SUMMARY | 2025-05-03 04:01 | XMS_ITS | Clinical Summary ---
Author Organization [facility] [address] [place] [address] Care Team Providers Care Batching Operator Name Role Phone Jeramie Dempsey MD Primary Care Provider [phone] Allergies Active Allergy Reactions Criticality Noted Date [...] 3 06/09/20 Active blood-glucose meter,continuous (DEXCOM G6 CONCRETE BUILDING ASSEMBLER) miscIndications:Un controlled type 2 diabetes mellitus with insulin therapy One memorandum statement clerk 1 each 06/09/20 Active insulin aspart U-100 [...] 05/04/2015 Assessment & Plan (06/10/2019 1:41 PM SOAP DRIER TENDER): Glucoses highly variable, he needs to get [...] on file Legal Sex Male 1:05 AM SOAP DRIER TENDER Gender Identity Not on file Sexual Orientation Not on file Obstetrics History Last Filed Vital Signs Vital Sign Reading Time Taken Comments Blood Pressure 110/57 06/20/2024 5:37 PM SOAP DRIER TENDER Pulse 70 06/20/2024 5:37 PM SOAP DRIER TENDER Temperature 36.8 C (98.3 F) 06/20/2024 5:37 PM SOAP DRIER TENDER Respiratory Rate 18 06/20/2024 5:37 PM SOAP DRIER TENDER Oxygen Saturation 98% 06/20/2024 5:37 PM SOAP DRIER TENDER Inhaled Oxygen Concentration - - Weight 81.6 kg (180 lb) 06/20/2024 5:37 PM SOAP DRIER TENDER Height 172.7 cm (5' 8) 06/20/2024 5:37 PM SOAP DRIER TENDER Body Mass Index 27.37 06/20/2024 5:37 PM SOAP DRIER TENDER Plan of Treatment Health Maintenance Due Date [...] CREATININE RATIO, URINE Routine 06/22/2019 11:24 AM SOAP DRIER TENDER Uncontrolled type 2 diabetes mellitus with insulin therapy (CMS/HCC) POCT HEMOGLOBIN A1C Routine 06/09/2019 8 :43 AM SOAP DRIER TENDER Uncontrolled type 2 diabetes mellitus with insulin [...] Albumin Creatinine Ratio, Urine (06/22/2019 11:24 AM SOAP DRIER TENDER) Creatinine, ur 113 20 - 320 mg/dL [facility] [place] Microalbumin, ur 9.8 See Note: mg/dL [facility] [place] Comment: Reference Range: [...] diagnostic category. Urine 06/22/2019 11:2 4 AM SOAP DRIER TENDER 06/22/2019 11:26 AM SOAP DRIER TENDER Narrative Resulting Agency Comment Performing Organization Information: Site ID: [place] Name: Richard Baker Address: [address] [facility] [place] [address] Director: Arthur Marsh D.O., MPH us Yomaira Escalona MD LAB URINE ORDERABLES Final Result [facility] [place], [place] * POCT hemoglobin A1c (06/09/2019 8:43 AM SOAP DRIER TENDER) Hemoglobin A1C, POC 8.9 Blood specimen (specimen) 06/09/2019 8:43 AM SOAP DRIER TENDER Yomaira Escalona MD POINT OF CARE TEST ORDERABL ES Final Result * (ABNORMAL) Comprehensive metabolic panel (05/12/2018 11:03 AM CDT) Glucose 429(H) 65 - 99 mg/dL [facility] - [place] Comment: Verified by repeat analysis. Fasting reference interval For someone without known diabetes, a glucose value >125 mg/dL indicates that they may have diabetes and this should be confirmed with a follow-up test. BUN 14 7 - 25 mg/dL [facility] [place] Creatinine 1.10 0.70 - 1.25 mg/dL [facility] - [place] Comment: For patients >49 years of age, the reference limit for Creatinine is approximately 13% higher for people identified as -Trinidadian. eGFR NON-AFR. GUYANESE 72 > OR = 60 mL/min/1 .73m2 [facility] [place] EGFR 84 > OR = 60 mL/min/1 .73m2 [facility] [place] BUN/creat ratio NOT APPLICABLE 6 - 22 (calc) [facility] [place] Sodium 136 135 - 146 mmol/L [facility] [place] Potassium, pl 4.6 3.5 - 5.3 mmol/L [facility] [place] Chloride 99 98 - 110 mmol/L [facility] [place] CO2 28 20 - 32 mmol/L [facility] [place] Calcium 9.0 8.6 - 10.3 mg/dL [facility] [place] Protein, sr 6.8 6.1 - 8.1 g/dL [facility] [place] Albumin 4.2 3.6 - 5.1 g/dL [facility] [place] GLOBULIN 2.6 1.9 - 3.7 g/dL (calc) [facility] [place] Alb/glob ratio 1.6 1.0 - 2.5 (calc) [facility] [place] Bilirubin, total 0.6 0.2 - 1.2 mg/dL [facility] [place] Alk phos 76 40 - 115 U/L [facility] [place] AST 19 10 - 35 U/L [facility] [place] ALT (SGPT) 21 9 - 46 U/L [facility] - [place] 05/12/2018 11:0 3 AM CDT 05/12/2018 11:04 AM CDT Narrative [facility] - 05/13/2018 7:52 AM CDT FASTING:YES FASTING: YES Resulting Agency Comment Performing Organization Information: Site ID: [place] Name: [email or web address] Address: [address] [facility] [place] [address] Director: Arthur Marsh D.O., MPH Yomaira Escalona MD LAB BLOOD ORDERABLES Final Result [facility] [place] from Last 3 Months or Most Recently Relevant to Health Maintenance Insurance [place] [employer] PRF [place] [facility] MEDICARE ADVANTAGE [facility] Address: [address] [address] [place] [address] [facility] MEDICARE ADVANTAGE Member Subscriber Plan / Payer (Ef fective 2022-Present) Name:Vern Molina Relation to Subscriber:Self Name:Vern Molina Payer ID:[id number] (NAIC) Type:UHC MEDICARE Address: [place] [phone] Care Teams Batching Operator Relationship Specialty Start Date End Date Jeramie Dempsey MD PCP - General Internal Medicine 12/09/18
[2025-05-03 12:33] VITALS: BP 119/67; PULSE 63; RESP 18; TEMP 36.3; O2SAT 97
[2025-05-03] MEDS: LACTATED RINGERS 1,000 ML 150 ML IV CONT (12:45)
[2025-05-03] MEDS: SIMETHICONE ORAL SUSPENSION 20 MG/0.3 ML 30 ML BOTTLE 1.8 ML PO (12:47)
--- NOTE | 2025-05-03 12:48 | SUR.PREOP ---
pt's glucose in pre op 126 per dexcom.
--- NOTE | 2025-05-03 13:19 | P.PNAN_ITS ---
Anes - Initial Pre Proc Eval Procedure: Operation Date: 05/03/25 13:30 Proposed Procedures p Esophagogastroduodenoscopy - Topher Gilliam MD Date/Time: 05/03/25 13:19 Surgeon: Topher Gilliam MD Pre Op Diagnosis: Gastro-esophageal reflux disease with esophagitis, Patient Data Age: 69 Gender: M Height: 1.73 m Weight: 83 kg Last Vital Signs Temp 36.3 C L 05/03/25 12:33 Pulse 63 05/03/25 12:33 Resp 18 05/03/25 12:33 BP 119/67 05/03/25 12:33 Pulse Ox 97 05/03/25 12:33 O2 Del Method Room Air 05/03/25 12:33 Allergies Allergy/AdvReac Type Severity Reaction Status Date / Time amoxicillin Allergy Unknown Hives Verified 05/03/25 12:30 Penicillins Allergy Unknown Hives Verified 05/03/25 12:30 propylene glycol Allergy Rash Verified 05/03/25 12:30 Home Medications ?Medication ?Instructions ?Recorded ?Confirmed ?Type omega-3 fatty acids 1,000 mg 4,000 mg PO DAILY 0 05/03/25 History capsule (Fish Oil Concentrate) aspirin 81 mg tablet,delayed 81 mg PO DAILY #90 tabs 0 03/25/20 05/03/25 Rx release acetaminophen 325 mg tablet 325 mg PO Q4-6H PRN Fever Or Pain 04/06/20 04/28/25 History folic acid 0.8 mg capsule 0.8 mg PO DAILY 07/28/20 History mecobalamin (vitamin B12) 1,000 1,000 mcg PO DAILY #10 tabs 07/28/20 05/03/25 Rx mcg chewable tablet (B12 Active) lancets 33 gauge (OneTouch Delica #100 ea 11/01/2108/15 Rx Lancets) cholecalciferol (vitamin D3) 50 50 mcg PO DAILY #90 ca ps 03/29/22 05/03/25 Rx mcg (2,000 unit) capsule (Vitamin D3) pen needle, diabetic 31 gauge x #200 ea 01/09/2304/21 Rx 3/16 (BD Ultra-Fine Mini Pen Needle) flash glucose scanning reader #1 ea 05/27/23 04/21/25 Rx (FreeStyle Trixie 2 [place]) flash glucose sensor (FreeStyle #1 ea 05/27/23 5 Rx Trixie 2 Sensor kit) vitamin E (dl, acetate) 45 mg (100 45 mg PO DAILY 06/2105/03/25 History unit) capsule insulin lispro 100 unit/mL See Rx Instructions .Route 03/24/24 05/03/25 Rx subcutaneous solution .COMPLEX #40 mL insulin degludec 100 unit/mL (3 See Rx Instructions .R oute 09/07/24 05/03/25 Rx mL) subcutaneous pen (Tresiba .COMPLEX #20 mL FlexTouch U-100 insulin) atorvastatin 20 mg tablet See Rx Instructions .Route 0 12/06/24 05/03/25 Rx .COMPLEX #90 tabs losartan 25 mg tablet See Rx Instructions .Route 0 12/06/24 05/03/25 Rx .COMPLEX #90 tabs famotidine 20 mg tablet 20 mg PO Q12H 1 month #60 ta bs 12/21/24 05/03/25 Rx empagliflozin 10 mg-metformin ER See Rx Instructions . Route 04/29/25 05/03/25 Rx 1,000 mg tablet,extended release .COMPLEX #90 tabs 24hr (Synjardy XR) Patient hx anesthesia problems: none Family hx anesthesia problems: none Results Review: All pre-operative results and documents have been reviewed as part of the pre- operative evaluation. [facility] Past Medical History Medical History TMJ (temporomandibular joint syndrome) Prostate cancer screening Actinic keratosis Internal hemorrhoids Hypoglycemia Nausea vomiting and diarrhea AMS (altered mental status) Personal history of COVID-19 Vertigo Tinnitus of both ears Positive colorectal cancer screening using Cologuard test BMI 25.0-25.9,adult Elevated parathyroid hormone Skin lesion Rhinorrhea Encounter for routine adult health examination with abnormal findings Hypotension Left acute otitis media Acute otitis externa of left ear Peripheral neuropathy Encounter for Medicare annual wellness exam Accidental needlestick injury with exposure to body fluid Wart of face Cough Body aches Encounter for routine adult health examination without abnormal findings BMI 27.0-27.9,adult BMI 26.0-26.9,adult Abnormal ankle brachial index (ALYSON) ASHD (arteriosclerotic heart disease) Colon cancer screening Encounter for special screening examination for neoplasm of prostate Follow up Abnormal EKG Abnormal finding of blood chemistry, unspecified ROMELIA-inhibitor cough Encounter for preventive health examination Encounter for special screening examination for neoplasm of prostate Chronic cough On custodial drug therapy Benign essential hypertension Hyperlipidemia Diabetes mellitus type 2, insulin dependent Family History Family History Father Family history of coronary artery disease Grandparent Cerebrovascular accident Mother Family history of dementia Social History Social History Smoking status: Never smoker Alcohol intake: never Substance use: never Substance use type: does not use Do You Feel Safe in your Home?: Yes Lack of Transportation: No Lack of Food: Never True Current Housing: I Have Housing Concerned About Future Housing: No Difficulty Paying Gas/Electric Bills: No Difficulty Paying for Meds: No Currently Unemployed: No Education: Associate Degree Difficulty w/ Childcare or Family Care: No Living arrangements: alone Occupation/Education: occupation Gender identity (if verbalized by the patient): Male Spiritual care concerns: No Anes - Eval Final PreProcedure Day of Procedure 05/03/25 13:19 Patient weight: overweight Heart: regular rate and rhythm Lungs: clear to auscultation Airway: Mallampati scale class II Neurological: alert and oriented Last oral intake: >/= 8 hours ASA classification: III Emergent: no Anesthetic plan: proceed Anesthesia type and monitoring: general GIVS and standard monitoring Results Review: All pre-operative results and documents have been reviewed as part of the pre- operative evaluation. Informed Consent: The patient's anesthetic plan and its attendant risks and benefits were discussed with the patient/family/POA. Questions were solicited and answers provided to the satisfaction of the patient/family/POA.
--- NOTE | 2025-05-03 13:54 | PM.IMHP ---
H&P: HPI History of Present Illness Date/Time: 05/03/25 13:54 Chief Complaint: Dysphagia-GERD Narrative: This patient has been complaining of recurrent heartburn episodes and over the past 2 years he has intermittent dysphagia, at least 2 times a week, almost exclusively with solid food but sometimes experiences difficulty with liquids. In September last year he had an EGD for other indications (anemia) and non erosive esophagitis was described. And empiric dilatation with a Santoro 50 Estonian was performed. He is now referred for EGD. Review of Systems Review of Systems: All systems reviewed & are unremarkable except as noted in HPI and below PMFSH Past Medical History Medical History TMJ (temporomandibular joint syndrome) Prostate cancer screening Actinic keratosis Internal hemorrhoids Hypoglycemia Nausea vomiting and diarrhea AMS (altered mental status) Personal history of COVID-19 Vertigo Tinnitus of both ears Positive colorectal cancer screening using Cologuard test BMI 25.0-25.9,adult Elevated parathyroid hormone Skin lesion Rhinorrhea Encounter for routine adult health examination with abnormal findings Hypotension Left acute otitis media Acute otitis externa of left ear Peripheral neuropathy Encounter for Medicare annual wellness exam Accidental needlestick injury with exposure to body fluid Wart of face Cough Body aches Encounter for routine adult health examination without abnormal findings BMI 27.0-27.9,adult BMI 26.0-26.9,adult Abnormal ankle brachial index (ALYSON) ASHD (arteriosclerotic heart disease) Colon cancer screening Encounter for special screening examination for neoplasm of prostate Follow up Abnormal EKG Abnormal finding of blood chemistry, unspecified ROMELIA-inhibitor cough Encounter for preventive health examination Encounter for special screening examination for neoplasm of prostate Chronic cough 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 Benign essential hypertension Hyperlipidemia Diabetes mellitus type 2, insulin dependent Family History Family History Father Family history of coronary artery disease Grandparent Cerebrovascular accident Mother Family history of dementia Social History Social History Smoking status: Never smoker Alcohol intake: never Substance use: never Substance use type: does not use Do You Feel Safe in your Home?: Yes Lack of Transportation: No Lack of Food: Never True Current Housing: I Have Housing Concerned About Future Housing: No Difficulty Paying Gas/Electric Bills: No Difficulty Paying for Meds: No Currently Unemployed: No Education: Associate Degree Difficulty w/ Childcare or Family Care: No Living arrangements: alone Occupation/Education: occupation Gender identity (if verbalized by the patient): Male Spiritual care concerns: No Meds Home Medications and Allergies Home Medications ?Medication ?Instructions ?Recorded ?Confirmed ?Type omega-3 fatty acids 1,000 mg 4,000 mg PO DAILY 01/07/20 05/03/25 History capsule (Fish Oil Concentrate) aspirin 81 mg tablet,delayed 81 mg PO DAILY #90 tabs 03/25/20 05/03/25 Rx release acetaminophen 325 mg tablet 325 mg PO Q4-6H PRN Fever Or Pain 04/06/20 04/28/25 History folic acid 0.8 mg capsule 0.8 mg PO DAILY 07/28/20 05/03/25 History mecobalamin (vitamin B12) 1,000 1,000 mcg PO DAILY #10 tabs 07/28/20 05/03/25 Rx mcg chewable tablet (B12 Active) lancets 33 gauge (OneTouch Delica #100 ea 11/01/21 04/21/25 Rx Lancets) cholecalciferol (vitamin D3) 50 50 mcg PO DAILY #90 caps 03/29/22 05/03/25 Rx mcg (2,000 unit) capsule (Vitamin D3) pen needle, diabetic 31 gauge x #200 ea 01/09/23 04/21/25 Rx 3/16 (BD Ultra-Fine Mini Pen Needle) flash glucose scanning reader #1 ea 05/27/23 04/21/25 Rx (FreeStyle Trixie 2 [place]ound) flash glucose sensor (FreeStyle #1 ea 05/27/23 04/21/25 Rx Trixie 2 Sensor kit) vitamin E (dl, acetate) 45 mg (100 45 mg PO DAILY 07/05/23 05/03/25 History unit) capsule insulin lispro 100 unit/mL See Rx Instructions .Route 03/24/24 05/03/25 Rx subcutaneous solution .COMPLEX #40 mL insulin degludec 100 unit/mL (3 See Rx Instructions .Route 09/07/24 05/03/25 Rx mL) subcutaneous pen (Tresiba .COMPLEX #20 mL FlexTouch U-100 insulin) atorvastatin 20 mg tablet See Rx Instructions .Route 12/06/24 05/03/25 Rx .COMPLEX #90 tabs losartan 25 mg tablet See Rx Instructions .Route 12/06/24 05/03/25 Rx .COMPLEX #90 tabs famotidine 20 mg tablet 20 mg PO Q12H 1 month #60 tabs 12/21/24 05/03/25 Rx empagliflozin 10 mg-metformin ER See Rx Instructions .Route 04/29/25 05/03/25 Rx 1,000 mg tablet,extended release .COMPLEX #90 tabs 24hr (Synjardy XR) Allergies Allergy/AdvReac Type Severity Reaction Status Date / Time amoxicillin Allergy Unknown Hives Verified 05/03/25 12:30 Penicillins Allergy Unknown Hives Verified 05/03/25 12:30 propylene glycol Allergy Rash Verified 05/03/25 12:30 Vital Signs Vital Signs - 24 hr 05/03/25 12:33 Temperature 97.3 F L Pulse Rate 63 Respiratory Rate 18 Blood Pressure 119/67 Pulse Oximetry 97 Oxygen Delivery Room Air Exam Const: General: cooperative and healthy appearing Resp: Effort & Inspection: normal respiratory effort and able to speak in complete sentences Auscultation: clear to auscultation bilaterally Cardio: Rate: regular rate Rhythm: regular rhythm GI: Inspection: normal to inspection GI Palp: No No hepatosplenomegaly present Auscultation: normal bowel sounds Rectal Exam: deferred Skin: General skin exam: normal color Psych: Appearance: grossly normal Mental Status: mental status grossly normal Assessment and Plan Assessment and plan (1) Dysphagia: Code(s): R13.10 - Dysphagia, unspecified Status: Acute Assessment and Plan: The patient is deemed a good candidate for the procedure. Consent signed. Will proceed.
--- NOTE | 2025-05-03 14:11 | S_PTH ---
PATIENT: Vern Molina LOC: [facility] #:[id number] AGE/SX: 69/M ROOM: RE05/03/[address]: Topher Gilliam MD : [id number] BED: DIS: 05/03/2025 SPEC #: [id number] RECD: 05/04/25 08:13 STATUS: FRANKIE REJudi #: [id number] JAH: 05/03/25 14:[address]: Topher Gilliam DEPT: [facility] Surgical RECD BY: Kyrie Beard ENTERED: 05/04/25 08:14 SP TYPE: Surgical OTHR DR: Jeramie Dempsey MD Tissues: A - Esophageal Biopsy B - Gastric Biopsy C - Gastric Biopsy Procedures: Hematoxylin and Eosin Stain Gross and Microscopic Level 4
[2025-05-03 14:13] VITALS: BP 80/49; PULSE 56; RESP 18; O2SAT 99
[2025-05-03 14:23] VITALS: BP 80/51; PULSE 56; RESP 18; O2SAT 97
[2025-05-03 14:30] VITALS: BP 85/52; PULSE 55; RESP 18; O2SAT 97
== END 2025-05-03 14:49 | disposition home or self-care (01) ==
PROVIDERS: PCP Internal Medicine; Referring Provider Nurse Practitioner Family; Visit Provider Internal Medicine Gastroenterology
PROC: 0DJ08ZZ Inspection of Upper Intestinal Tract, Via Natural or Artificial Opening Endoscopic (ICD-10-PCS; CPT 43239; principal; 2025-05-03 13:30)
DX: K21.00 Gastro-esophageal reflux disease with esophagitis, without bleeding (principal); K22.70 Barrett's esophagus without dysplasia; E78.5 Hyperlipidemia, unspecified; I10 Essential (primary) hypertension; E11.9 Type 2 diabetes mellitus without complications; E16.2 Hypoglycemia, unspecified; R41.82 Altered mental status, unspecified; E21.3 Hyperparathyroidism, unspecified; I95.9 Hypotension, unspecified; I25.10 Atherosclerotic heart disease of native coronary artery without angina pectoris; L57.0 Actinic keratosis; R05.3 Chronic cough; M26.609 Unspecified temporomandibular joint disorder, unspecified side; G62.9 Polyneuropathy, unspecified; Z79.899 Other long term (current) drug therapy; Z79.4 Long term (current) use of insulin; Z79.82 Long term (current) use of aspirin; Z79.84 Long term (current) use of oral hypoglycemic drugs; Z82.49 Family history of ischemic heart disease and other diseases of the circulatory system
CPT/HCPCS: 43239; 88305; J2704; J7120

== ENCOUNTER 2025-05-21 15:32 | Outpatient (CLI) | payer MEDICARE, SELFPAY ==
--- OUTSIDE RECORDS SUMMARY | 2010-06-19 09:30 | XMS_ITS | Continuity of Care Document ---
Author Organization [facility] Former[facility] Address [address] [place] [address] Dr Sanderson [address] [place] [phone] Phone Care Team Providers Care Supervisor Core Drilling Name Role Phone Pan Brownlee Unavailable Unavailable Procedures Procedure Date Eye Exam & Treatment Injection Eye Drug Kenalog/Triamcinolone Acetonide Inj Ophthalmoscopy, Subsequent Ophthalmoscopy, Subsequent Eye Exam Established Pt Ophthalmoscopy, Subsequent Ophthalmoscopy, Subsequent Injection Eye Drug Kenalog/Triamcinolone Acetonide Inj Eye Exam & Treatment Ophthalmoscopy, Subsequent Ophthalmoscopy, Subsequent Optic Nerve Topography Apr- Eye Exam Established Pt Ophthalmoscopy, Subsequent Eye Exam & Treatment Injection Eye Drug Kenalog/Triamcinolone Acetonide Inj Ophthalmoscopy, Subsequent Ophthalmoscopy, Subsequent Optic Nerve Topography Optic Nerve Topography Eye Exam Established Pt Ophthalmoscopy, Subsequent Ophthalmoscopy, Subsequent Eye Exam & Treatment Injection Eye Drug Kenalog/Triamcinolone Acetonide Inj Ophthalmoscopy, Subsequent Ophthalmoscopy, Subsequent Optic Nerve Topography Optic Nerve Topography Eye Exam & Treatment Ophthalmoscopy, Subsequent Ophthalmoscopy, Subsequent Optic Nerve Topography Optic Nerve Topography Treatment Of Retinal Lesion Eye Exam & Treatment Injection Eye Drug Kenalog/Triamcinolone Acetonide Inj Ophthalmoscopy, Subsequent Ophthalmoscopy, Subsequent Optic Nerve Topography Optic Nerve Topography Eye Exam & Treatment Ophthalmoscopy, Subsequent Ophthalmoscopy, Subsequent Optic Nerve Topography Optic Nerve Topography Injection Eye Drug Kenalog/Triamcinolone Acetonide Inj Injection Eye Drug Kenalog/Triamcinolone Acetonide Inj Injection Eye Drug Kenalog/Triamcinolone Acetonide Inj Ophthalmoscopy, Subsequent Ophthalmoscopy, Subsequent Optic Nerve Topography Optic Nerve Topography Eye Exam & Treatment Ophthalmoscopy, Subsequent Ophthalmoscopy, Subsequent Optic Nerve Topography Optic Nerve Topography Eye Exam & Treatment Ophthalmoscopy, Subsequent Ophthalmoscopy, Subsequent Optic Nerve Topography Optic Nerve Topography Injection Eye Drug Kenalog/Triamcinolone Acetonide Inj Ophthalmoscopy, Subsequent Ophthalmoscopy, Subsequent Optic Nerve Topography Optic Nerve Topography Post-op Follow-up Visit Injection Eye Drug Kenalog/Triamcinolone Acetonide Inj Ophthalmoscopy, Subsequent Eye Exam & Treatment Ophthalmoscopy, Subsequent Ophthalmoscopy, Subsequent Optic Nerve Topography Optic Nerve Topography Injection Eye Drug Kenalog/Triamcinolone Acetonide Inj Eye Exam Established Pt Oct-12-2009 Ophthalmoscopy, Subsequent Ophthalmoscopy, Subsequent Treatment Of Retinal Lesion Treatment Of Retinal Lesion Treatment Of Retinal Lesion Eye Exam, New Patient Ophthalmoscopy Ophthalmoscopy Optic Nerve Topography Optic Nerve Topography Injection Eye Drug Kenalog/Triamcinolone Acetonide Inj Advance Directives Directive Yes / No Effective Date File Name No Information Encounters Encounter Description Practice Location Reason(s) For Visit Diagnoses Date Provider Providers Copied on Encounter [facility], [address] [place] [address] [address], [place], [place], [id number], [place] tel:[phone] [facility] No Information Kem Perla. [address] [place], [address], [place]. tel:[phone] Referring Provider: Pan Tran, [address] [place], [address]. tel:[phone] [facility], [address], [place], [place], [address], [place] tel:[phone] [facility] No Information Kem Perla. [address] [place], [address], [place]. tel:[phone] Referring Provider: Pan Tran, [address] [place], [address]. tel:[phone] [facility], [address] [facility] [address], [place], [place], [id number], [place] tel:[phone] [facility] No Information Kem Perla. [address] [place], [address], [place]. tel:[phone] Referring Provider: Pan Tran, [address] [place], [address]. tel:[phone] [facility], [address], [place], [place], [address], [place] tel:[phone] [facility] No Information Kem Perla. [address] [place], [address], [place]. tel: [phone] [facility], [address], [place], [place], [address], [place] tel:[phone] [facility] No Information Kem Perla. [address] [place], [address], [place]. tel: [phone] Referring Provider: Pan Tran, [address] [place], [address]. tel:[phone] [facility], [address], [place], [place], [address], [place] tel:[phone] [facility] No Information Kem Perla. [address] [place], [address], [place]. tel: [phone] [facility], [address], [place], [place], [address], [place] tel:[phone] [facility] No Information Kem Perla. [address] [place], [address], [place]. tel: [phone] Referring Provider: Pan Tran, [address] [place], [address]. tel:[phone] [facility], [address], [place], [place], [address], [place] tel:[phone] [facility] No Information Kem Perla. [address] [place], [address], [place]. tel: [phone] Referring Provider: Pan Tran, [address] [place], [address]. tel:[phone] [facility], [address], [place], [place], [address], [place] tel:[phone] [facility] No Information Kem Perla. [address] [place], [address], [place]. tel:[phone] [facility], [address] [place] [address] [address], [place], [place], [address], [place] tel:[phone] [facility] No Information Kem Perla. [address] [place], [address], [place]. tel:[phone] Referring Provider: Pan Tran, [address] [place], [address]. tel:[phone] [facility], [address] [place] [address] [address], [place], [place], [address], [place] tel:[phone] [facility] No Information Kem Perla. [address] [place], [address], [place]. tel:[phone] Referring Provider: Pan Tran, [address] [place], [address]. tel:[phone] [facility], [address], [place], [place], [address], [place] tel:[phone] [facility] No Information Kem Perla. [address] [place], [address], [place]. tel:[phone] Referring Provider: Pan Tran, [address] [place], [address]. tel:[phone] [facility], [address], [place], [place], [address], [place] tel:[phone] [facility] No Information Kem Perla. [address] [place], [address], [place]. tel:[phone] Referring Provider: Pan rTan, [address] [place], [address]. tel:[phone] [facility], [address], [place], [place], [address], [place] tel:[phone] [facility] No Information Kem Perla. [address] [place], [address], [place]. tel:[phone] Referring Provider: Pan Tran, [address] [place], [address]. tel:[phone] [facility], [address], [place], [place], [address], [place] tel:[phone] [facility] No Information Kem Perla. [address] [place], [address], [place]. tel:[phone] Referring Provider: Pan Tran, [address] [place], [address]. tel:[phone] [facility], [address], [place], [place], [address], [place] tel:[phone] [facility] No Information Kem Perla. [address] [place], [address], [place]. tel:[phone] Referring Provider: Pan Tran, [address] [place], [address]. tel:[phone] [facility], [address], [place], [place], [address], [place] tel:[phone] [facility] No Information Kem Perla. [address] [place], [address], [place]. [phone] [facility], [address], [place], [place], [address], [place] tel:[phone] [facility] No Information Kem Perla. [address] [place], [address], [place]. [phone] Referring Provider: Pan Tran, [address] [place], [address]. tel:[phone] [facility], [address], [place], [place], [address], [place] tel:[phone] [facility] No Information Kem Perla. [address] [place], [place], [facility], [place]. [phone] Referring Provider: Pan Tran, [address] [place], [address]. tel:[phone] [facility], [address], [place], [place], [address], [place] tel:[phone] [facility] No Information Kem Perla. [address], [place], [facility], [place]. [phone] [facility], [address], [place], [place], [address], [place] tel:[phone] [facility] No Information Kem Perla. [address] [place], [address], [place]. tel:[phone] [facility], [address], [place], [place], [address], [place] tel:[phone] [facility] No Information Kem Perla. [address] [place], [address], [place]. tel:[phone] [facility], [address], [place], [place], [address], [place] tel:[phone] [facility] No Information Kem Perla. [address] [place], [address], [place]. tel:[phone] Referring Provider: Juan J Mcleod OD, [address] [place], [address]. tel:[phone] Family History Family Member Type Diagnosis Age At Onset No Information Payers Payer name Insurance type Covered republican ID Authoriza tion(s) No Information Social History Type Description Quantity Date Captured Comments Sex Male Smoking Status No Information Chief Complaint And Reason For Visit No Information Reason For Referral Reason For Referral No Information History Of Present Illness Encounter Date Complaint History Of Prese nt Illness No Information Functional Status Date Functional Assessmen t No Information Instructions Date Instruction Additional Infor mation No Information Assessments Type Assessment Date No Information Patient Care Teams Name Effective Dates (start - stop) Status Members No Information
--- OUTSIDE RECORDS SUMMARY | 2025-05-21 15:36 | XMS_ITS | Clinical Summary ---
Author Organization [facility] [address] Address [address] [place] [address] Care Team Providers Care Irrigator Name Role Phone Jeramie Dempsey MD Primary Care Provider [phone] Allergies Active Allergy Reactions Criticality Noted Date [...] 3 06/09/20 Active blood-glucose meter,continuous (DEXCOM G6 SPORTS MARKETING SPECIALIST) miscIndications:Un controlled type 2 diabetes mellitus with insulin therapy One fudger 1 each 06/09/20 Active insulin aspart U-100 [...] 05/04/2015 Assessment & Plan (06/10/2019 1:41 PM AIR CONDITIONING TECHNICIAN): Glucoses highly variable, he needs to [...] on file Legal Sex Male 1:05 AM AIR CONDITIONING TECHNICIAN Gender Identity Not on file Sexual Orientation Not on file Obstetrics History Last Filed Vital Signs Vital Sign Reading Time Taken Comments Blood Pressure 110/57 06/20/2024 5:37 PM AIR CONDITIONING TECHNICIAN Pulse 70 06/20/2024 5:37 PM AIR CONDITIONING TECHNICIAN Temperature 36.8 C (98.3 F) 06/20/2024 5:37 PM AIR CONDITIONING TECHNICIAN Respiratory Rate 18 06/20/2024 5:37 PM AIR CONDITIONING TECHNICIAN Oxygen Saturation 98% 06/20/2024 5:37 PM AIR CONDITIONING TECHNICIAN Inhaled Oxygen Concentration - - Weight 81.6 kg (180 lb) 06/20/2024 5:37 PM AIR CONDITIONING TECHNICIAN Height 172.7 cm (5' 8) 06/20/2024 5:37 PM AIR CONDITIONING TECHNICIAN Body Mass Index 27.37 06/20/2024 5:37 PM AIR CONDITIONING TECHNICIAN Plan of Treatment Health Maintenance Due Date [...] CREATININE RATIO, URINE Routine 06/22/2019 11:24 AM AIR CONDITIONING TECHNICIAN Uncontrolled type 2 diabetes mellitus with insulin therapy (CMS/HCC) POCT HEMOGLOBIN A1C Routine 06/09/2019 8 :43 AM AIR CONDITIONING TECHNICIAN Uncontrolled type 2 diabetes mellitus with [...] Albumin Creatinine Ratio, Urine (06/22/2019 11:24 AM AIR CONDITIONING TECHNICIAN) Creatinine, ur 113 20 - 320 mg/dL [facility] [place] Microalbumin, ur 9.8 See Note: mg/dL [facility] [place] Comment: Reference Range: Reference [...] diagnostic category. Urine 06/22/2019 11:2 4 AM AIR CONDITIONING TECHNICIAN 06/22/2019 11:26 AM AIR CONDITIONING TECHNICIAN Narrative Resulting Agency Comment Performing Organization Information: Site ID: [place] Name: [facility] Baker Address: [address] [address] [place] [address] Director: Arthur Marsh D.O., MPH us Yomaira Escalona MD LAB URINE ORDERABLES Final Result [facility] [place], [place] * POCT hemoglobin A1c (06/09/2019 8:43 AM AIR CONDITIONING TECHNICIAN) Hemoglobin A1C, POC 8.9 Blood specimen (specimen) 06/09/2019 8:43 AM AIR CONDITIONING TECHNICIAN Yomaira Escalona MD POINT OF CARE TEST ORDERABL ES Final Result * (ABNORMAL) Comprehensive metabolic panel (05/12/2018 11:03 AM CDT) Glucose 429(H) 65 - 99 mg/dL [facility] [place] Comment: Verified by repeat analysis. Fasting reference interval For someone without known diabetes, a glucose value >125 mg/dL indicates that they may have diabetes and this should be confirmed with a follow-up test. BUN 14 7 - 25 mg/dL [facility] [place] Creatinine 1.10 0.70 - 1.25 mg/dL [facility] [place] Comment: For patients >49 years of age, the reference limit for Creatinine is approximately 13% higher for people identified as -[place] Ze[place]ander. eGFR NON-AFR. BELIZEAN 72 > OR = 60 mL/min/1 .73m2 [facility] [place] EGFR 84 > OR = 60 mL/min/1 .73m2 [facility] [place] BUN/creat ratio NOT APPLICABLE 6 - 22 (calc) [facility] [place] Sodium 136 135 - 146 mmol/L [facility] [place] Potassium, pl 4.6 3.5 - 5.3 mmol/L [facility] [place] Chloride 99 98 - 110 mmol/L [facility] [place] CO2 28 20 - 32 mmol/L [facility] [place] Calcium 9.0 8.6 - 10.3 mg/dL [facility] [place] Protein, sr 6.8 6.1 - 8.1 g/dL [facility] [place] Albumin 4.2 3.6 - 5.1 g/dL [facility] [place] GLOBULIN 2.6 1.9 - 3.7 g/dL (calc) [facility] [place] Alb/glob ratio 1.6 1.0 - 2.5 (calc) [facility] [place] Bilirubin, total 0.6 0.2 - 1.2 mg/dL [facility] [place] Alk phos 76 40 - 115 U/L [facility] [place] AST 19 10 - 35 U/L [facility] [place] ALT (SGPT) 21 9 - 46 U/L [facility] [place] 05/12/2018 11:0 3 AM CDT 05/12/2018 11:04 AM CDT Narrative [facility] 05/13/2018 7:52 AM CDT FASTING:YES FASTING: YES Resulting Agency Comment Performing Organization Information: Site ID: [place] Name: [facility] Address: [address] [place] [address] Director: Arthur Marsh D.O., MPH Yomaira Escalona MD LAB BLOOD ORDERABLES Final Result [facility] [place] from Last 3 Months or Most Recently Relevant to Health Maintenance Insurance [employer] [place] [facility] MEDICARE ADVANTAGE [facility] MEDICARE ADVANTAGE Member Subscriber Plan / Payer (Ef fective 2022-Present) Name:Vern Molina Relation to Subscriber:Self Name:Vern Molina Payer ID:[id number] (NAIC) Type:UHC MEDICARE Address: [place] [id number] Care Teams Irrigator Relationship Specialty Start Date End Date Jeramie Dempsey MD PCP - General Internal Medicine 12/09/18
--- OUTSIDE RECORDS SUMMARY | 2025-05-21 15:36 | XMS_ITS | Clinical Summary ---
Author Organization [facility] Address [address] [place] [id number] Care Team Providers Care Retail Advisor Name Role Phone Jeramie Dempsey MD Primary Care Provider [phone] Social History Tobacco Use Types Packs/Day Years [...] of 2) 2006 COVID-19 Vaccine ( - 2024-2 6 season) 2025 Influenza Adult (#1) 2025 RSV Immunization or 60+ Years (1 - 1-dose 75+ series) 10/11/2031 Hepatitis A Vaccines Aged Out No long er eligible based on patient's age to complete this topic Meningococcal B Vaccine Aged Out No l onger eligible based on patient's age to complete this topic Meningococcal Vaccine Aged Out No cristian stevenson eligible based on patient's age to complete this topic RSV Immunizations Under 20 Months Aged Out No longer eligible based on patient's age to complete this topic Insurance [facility] Care Teams Retail Advisor Relationship Specialty Start Date End Date Jeramie Dempsey MD [address] [place] [id number] PCP - General INTERNAL MEDICINE 01/18/20
[2025-05-21 17:36] LABS: Hematocrit 46.5 % (42.0-52.0); Hemoglobin 15.0 g/dL (14.0-18.0); Immature Granulocyte Percent A 0.5 % (0-0.5); Lymphocytes Absolute Auto 0.62 K/mm3 (0.9-3.2); Mean Corpuscular HGB Conc 32.3 g/dl (32-36); Mean Corpuscular Hemoglobin 29.0 pg (26-34); Mean Corpuscular Volume 89.8 fl (80-100); Nucleated Red Blood Cells Absolute Auto 0.000 K/mm3 (0.0-0.012); Nucleated Red Blood Cells Perc 0.0 % (0.0-0.2); Platelet Count Result 171 k/mm3 (150-375); Red Blood Count 5.18 M/mm3 (4.6-6.20); White Blood Count 4.2 K/mm3 (4.5-10.0)
[2025-05-21 17:56] LABS: Hemoglobin A1C 8.6 % (<5.7)
[2025-05-21 17:58] LABS: Alanine Aminotransferase 29 U/L (6-50); Albumin Level 4.6 g/dL (3.5-5.1); Alkaline Phosphatase 87 U/L (38-126); Anion Gap 7 mmol/L (4-12); Aspartate Amino Transferase 35 U/L (17-59); Bilirubin,Total 1.1 mg/dL (0.2-1.3); Blood Urea Nitrogen 22 mg/dL (9-20); Calcium 9.8 mg/dL (8.4-10.2); Carbon Dioxide 30 mmol/L (22-30); Chloride 101 mmol/L (98-107); Cholesterol 157 mg/dL (0-200); Estimated Glomerular Filt Rate > 60; Glucose 220 mg/dL (65-110); HDL Direct 40 mg/dL; Potassium 5.2 mmol/L (3.4-5.0); Sodium 138 mmol/L (137-145); Total Protein 7.3 g/dL (6.3-8.2); Triglycerides 300 mg/dL (<150)
== END 2025-05-21 15:33 | disposition home or self-care (01) ==
PROVIDERS: PCP Internal Medicine; Visit Provider Internal Medicine
DX: E11.9 Type 2 diabetes mellitus without complications (principal); Z79.4 Long term (current) use of insulin; I10 Essential (primary) hypertension; E78.2 Mixed hyperlipidemia; E55.9 Vitamin D deficiency, unspecified
CPT/HCPCS: 36415; 80053; 80061; 82306; 83036; 85025